=== PATIENT | female | born 1935 | race Caucasian/White ===

== ENCOUNTER 2016-10-14 12:43 | Emergency (ER) | payer OTHER, MEDICARE ==
[~2016-10-14 12:43] MED LIST: ACET-1256 PO; ASPI81TA28 PO; CALC600T9 PO; ENT3 PO; FLUO20CA35 PO; HYDR12.56 PO; KRIL1CAP3 PO; MULT-614 PO; NMN5 PO; NRV/5 PO; PROB1TAB16 PO
[2016-10-14 12:48] VITALS: TEMP 36.8; Ht 162.6 cm
[2016-10-14] MEDS ORDERED: ACETAMINOPHEN 325 MG TAB PO STA (13:05)
--- NOTE | 2016-10-14 13:55 | EMERGENCY ROOM VISIT NOTE ---
ED Visit Note First contact with patient: 12:54 CHIEF COMPLAINT: knee pain HISTORY OF PRESENT ILLNESS: This 81-year-old female patient presents to the emergency department with her son after sustaining an injury to the left knee from a fall around 9:30 this morning. Patient has dementia, her son helps to provide the history. State the patient was walking when she tripped and her left knee gave out on her. She fell onto the left knee, unsure of any twisting injury. The patient denies any other injuries besides their knee. The patient reports mild swelling, no noted bruising. She has been unable to walk on the leg since the injury due to pain. No pain with bending the knee. No numbness or tingling. No previous injuries to this knee. No ankle, foot or hip pain. She takes a baby aspirin every day, no other blood thinners. Hx of bilateral total knee replacement about 20 years ago, no chronic issues with the left knee per patient and her son. REVIEW OF SYSTEMS: A 6 system review of systems was completed with positives and pertinent negatives listed in the HPI. ALLERGIES: See chart MEDICATIONS: See chart PMH: See chart SOCIAL HISTORY: Lives in assisted living. PHYSICAL EXAM: Vital Signs: Reviewed Nurse's notes, vital signs stable. GENERAL : Alert and pleasant, no acute distress, but appears in pain, well-developed, well-nourished. MENTAL STATUS: Alert, oriented to person place and time, and cooperative. MUSCULOSKELETAL: The left knee is mildly swollen. There is no ecchymosis. There is no joint effusion present. The patient is tender anterior and lateral aspect of the knee, as well as tenderness in the ankle range of motion. No obvious deformity of the ankle, no swelling or ecchymosis noted. There is no joint line tenderness. The patella does not subluxate. Range of motion is normal. Strength of the quads and hamstrings is 5/5. Strength with dorsiflexion and plantarflexion of the foot 5/5. Natali's and Anterior Drawer tests are negative. There is no pain or laxity with varus and valgus stressing. The foot and toes are warm and well-perfused. Dorsalis pedis pulse 2+. Sensation to pain and light touch is intact. Capillary refill less than 2 seconds. IMAGING: LEFT ANKLE 3 VIEWS CLINICAL HISTORY: Fall with left ankle injury. FINDINGS: 3 views of the left ankle are obtained. No prior studies are available for comparison at the time of dictation. The skeletal structures are osteopenic. There is contour deformity of the distal fibula suggesting remote fracture. No acute fracture is identified. The ankle mortise is intact. Soft tissue edema is present throughout the left lower extremity. There are large dorsal and plantar calcaneal enthesophytes. No ankle joint effusion is seen. An os trigonum is incidentally noted. IMPRESSION: 1. Diffuse soft tissue edema with no acute ankle fracture identified. 2. Contour deformity of the distal fibula suggests remote trauma. 3. Osteopenia and degenerative change as above. ----- LEFT TIBIA/FIBULA 2 VIEWS ROUTINE CLINICAL HISTORY: left ankle/knee pain, fall, eval fx COMPARISON STUDY: None. FINDINGS: Left total knee arthroplasty. The bones are osteopenic. No fracture or dislocation. Soft tissues are unremarkable. IMPRESSION: No fracture or dislocation within the left lower leg. ----- LEFT KNEE 3 VIEWS CLINICAL HISTORY: Left knee pain status post trauma COMPARISON: None. DISCUSSION: There are postsurgical changes of a total left knee arthroplasty and patellar resurfacing. There are no acute fractures. There are calcifications at the level of the distal quadriceps tendon. IMPRESSION: Postsurgical change. No acute fractures. EMERGENCY DEPARTMENT COURSE: I examined the patient. Differential diagnosis includes knee contusion, fracture, ligamentous injury, ankle sprain, fracture. The patient was given Tylenol for pain. X-rays of the left ankle, tib-fib, knee were reviewed by myself and read by radiology and reveal no acute fracture or other bony abnormality. The patient was placed in a knee immobilizer under my direction and the position was satisfactory. The patient was instructed to use her walker for all ambulation. The patient was discharged home in good condition. Problem List Medical Problems: (1) Acute recurrent tonsillitis Status: Chronic (2) Diabetes Status: Chronic (3) Diarrhea Status: Chronic (4) HTN (hypertension) Status: Chronic (5) Lung cancer Status: Chronic Surgical Problems: (1) History of knee replacement Status: Resolved Current/Historical Medications Scheduled Amlodipine Besylate (Amlodipine Besylate), 5 MG PO DAILY Aspirin (Aspirin Ec), 81 MG PO QAM Budesonide (Budesonide), 3 MG PO QAM Calcium Carbonate-Vitamin D (Calcium + D), 1 TAB PO BID Diphenhydramine Hcl (Benadryl Allergy), 1 CAP PO HS Docusate Sodium (Docqlace), 1 CAP PO BID Donepezil Hydrochloride (Donepezil Hcl), 1 TAB PO HS Escitalopram Oxalate (Lexapro), 5 MG PO QAM Hydrochlorothiazide (Hctz), 12.5 MG PO DAILY Memantine Hcl (Namenda Xr), 1 CAP PO QAM Multiple Vitamins W/ Minerals (Centrum Silver Ultra Wome), 1 TAB PO DAILY Probiotic Product (Probiotic), 1 TAB PO BID Triamcinolone Acetonide (Nasal (Nasacort Allergy 24Hr), 1 SPRAY MARK DAILY Scheduled PRN Acetaminophen (Tylenol), 500 MG PO Q6 PRN for Pain Allergies Coded Allergies: Latex (Verified Allergy, Mild, RASH, 10/14/16) Penicillins (Verified Allergy, Mild, HIVES, 10/14/16) Povidone (Verified Allergy, Mild, TOPICAL - RASH, 10/14/16) Adhesives (Verified Allergy, Unknown, "BANDAID ALLERGY", 10/14/16) Cephalexin (Unverified Allergy, Unknown, ?, 10/14/16) Iodine (Verified Allergy, Unknown, ., 10/14/16) Hydrocodone (Verified Adverse Reaction, Intermediate, vomiting, nausea, ) Vital Signs Date Time Temp Pulse Resp B/P Pulse Ox O2 Delivery O2 Flow Rate FiO2 10/14/16 12:48 36.8 69 16 150/83 97 Room Air Medications Administered Medications (Trade) Dose Ordered Sig/Heri Route Start Time Stop Time Status Last Admin Dose Admin Acetaminophen (Tylenol Tab) 650 mg NOW STAT PO 10/14/16 13:05 10/14/16 13:07 DC 10/14/16 13:05 650 MG Departure Information Impression Primary Impression: Left knee sprain Dispostion Home / Self-Care Condition GOOD Referrals HALIE HARRINGTON (PCP) Patient Instructions ED Immobilizer Knee, ED Sprain Knee, [facility] Additional Instructions Ice and elevate knee for swelling and pain for the next 2-3 days. Wear knee immobilizer when up and about. Use your walker at all times to get around. Ibuprofen 400 mg and Tylenol 650mg every 6 hrs as needed for pain. Follow up with your family doctor or orthopedics in the next 4-5 days. Please return to the ER for any worsening symptoms, including severe pain, increased swelling of the knee or leg, if you are unable to walk on the leg due to pain or weakness, or any other concerns. Problem Qualifiers Primary Impression: Left knee sprain Encounter type: initial encounter Involved ligament of knee: unspecified ligament Qualified Codes: S83.92XA - Sprain of unspecified site of left knee, initial encounter
--- NOTE | 2016-10-14 14:01 | DIAGNOSTIC IMAGING REPORT ---
LEFT KNEE 3 VIEWS CLINICAL HISTORY: Left knee pain status post trauma COMPARISON: None. DISCUSSION: There are postsurgical changes of a total left knee arthroplasty and patellar resurfacing. There are no acute fractures. There are calcifications at the level of the distal quadriceps tendon. IMPRESSION: Postsurgical change. No acute fractures. Electronically signed by: Oli Thompson M.D. 10/14/2016 2:00 PM Dictated Date/Time: 10/14/2016 1:59 PM
--- NOTE | 2016-10-14 14:02 | DIAGNOSTIC IMAGING REPORT ---
LEFT ANKLE 3 VIEWS CLINICAL HISTORY: Fall with left ankle injury. FINDINGS: 3 views of the left ankle are obtained. No prior studies are available for comparison at the time of dictation. The skeletal structures are osteopenic. There is contour deformity of the distal fibula suggesting remote fracture. No acute fracture is identified. The ankle mortise is intact. Soft tissue edema is present throughout the left lower extremity. There are large dorsal and plantar calcaneal enthesophytes. No ankle joint effusion is seen. An os trigonum is incidentally noted. IMPRESSION: 1. Diffuse soft tissue edema with no acute ankle fracture identified. 2. Contour deformity of the distal fibula suggests remote trauma. 3. Osteopenia and degenerative change as above. Electronically signed by: Dave Lehman M.D. 10/14/2016 2:01 PM Dictated Date/Time: 10/14/2016 1:59 PM
[2016-10-14] MEDS ORDERED: DIPH25CA65 PO (14:05)
[2016-10-14] MEDS ORDERED: TRIA1SPR4 NAE (14:05)
[2016-10-14] MEDS ORDERED: DONE1TAB26 PO (14:05)
[2016-10-14] MEDS ORDERED: ESCI1TAB6 PO (14:05)
[2016-10-14] MEDS ORDERED: DOCU100C22 PO (14:05)
[2016-10-14] MEDS ORDERED: MEMA1CAP6 PO (14:05)
--- NOTE | 2016-10-14 14:07 | DIAGNOSTIC IMAGING REPORT ---
LEFT TIBIA/FIBULA 2 VIEWS ROUTINE CLINICAL HISTORY: left ankle/knee pain, fall, eval fx COMPARISON STUDY: None. FINDINGS: Left total knee arthroplasty. The bones are osteopenic. No fracture or dislocation. Soft tissues are unremarkable. IMPRESSION: No fracture or dislocation within the left lower leg. Electronically signed by: Lucas Vega M.D. 10/14/2016 2:05 PM Dictated Date/Time: 10/14/2016 2:04 PM
[2016-10-14 15:00] VITALS: BP 150/83; PULSE 69; O2SAT 97
[2016-11-08] MEDS ORDERED: ASPI81TA28 PO (07:53)
[2016-11-08] MEDS ORDERED: ERGO500011 PO (07:53)
[2016-11-08] MEDS ORDERED: ULT50X PO (07:53)
[2016-11-08] MEDS ORDERED: RXC5 PO (07:53)
[2016-11-08] MEDS ORDERED: LORA-741 PO (10:25)
== END 2016-10-14 15:00 | disposition home or self-care (01) ==
LOC: C.EDB 12:45 → C.EDD 15:00
DX: S83.92XA Sprain of unspecified site of left knee, initial encounter (principal); W01.0XXA Fall on same level from slipping, tripping and stumbling without subsequent striking against object, initial encounter; E11.9 Type 2 diabetes mellitus without complications; I10 Essential (primary) hypertension; Z85.118 Personal history of other malignant neoplasm of bronchus and lung; Z96.659 Presence of unspecified artificial knee joint; Z79.82 Long term (current) use of aspirin; Z79.899 Other long term (current) drug therapy; Z88.0 Allergy status to penicillin; Z88.5 Allergy status to narcotic agent; Z88.8 Allergy status to other drugs, medicaments and biological substances; Z91.040 Latex allergy status; Z91.09 Other allergy status, other than to drugs and biological substances

== ENCOUNTER 2016-11-03 07:38 | Inpatient (IN) | payer OTHER, MEDICARE ==
[~2016-11-03] VITALS: Ht 157.5 cm; Wt 75.0 kg
[~2016-11-03 07:38] MED LIST changes: +DIPH25CA65 PO; +DOCU100C22 PO; +DONE1TAB26 PO; +ESCI1TAB6 PO; -FLUO20CA35 PO; -KRIL1CAP3 PO; +MEMA1CAP6 PO; -NMN5 PO; +TRIA1SPR4 NAE
[2016-11-03] MEDS ORDERED: FENTANYL CITRATE INJ 50 MCG/1 ML 2 ML VIAL IV STA ×3 (07:59→10:56)
[2016-11-03] MEDS ORDERED: SODIUM CHLORIDE 0.9% 1000ML 1,000 ML IV STA (07:59)
[2016-11-03] MEDS ORDERED: CLR10 PO (08:07)
[2016-11-03] MEDS ORDERED: LORA-741 PO (08:08)
[2016-11-03] MEDS ORDERED: SENN1TAB80 PO (08:08)
--- NOTE | 2016-11-03 08:12 | EMERGENCY ROOM VISIT NOTE ---
History Report prepared by Polly: Virginia Joy Under the Supervision of: Dr. Moni Hays M.D. First contact with patient: 07:44 Chief Complaint: HIP PAIN Stated Complaint: FALL History of Present Illness The patient is an 81 year old female who presents to the Emergency Room with complaints of persistent left knee pain starting AFTERNOON BABYSITTER. The patient presents to the ED by EMS from a alf. Her daughter received a call this morning saying that the patient fell while she was trying to get out of bed. She has swelling in her left leg from her ankle to her knee which the alf staff was concerned about. She has had knee replacements in both legs. She is usually able to walk with a walker. She reports pain in her left hip. She denies any abdominal pain. 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 Source of History: patient, family Onset: AFTERNOON BABYSITTER Position: knee (left) Quality: other (pain) Timing: other (persistent) Associated Symptoms: No abdominal pain Note: Pt reports left hip pain. Review of Systems See HPI for pertinent positives & negatives. A total of 10 systems reviewed and were otherwise negative. Past Medical & Surgical Medical Problems: (1) Acute electrocardiogram changes (2) Acute recurrent tonsillitis (3) Dementia (4) Diabetes (5) Diarrhea (6) Fall (7) Femur fracture, left (8) Head injury (9) HTN (hypertension) (10) Lung cancer Surgical Problems: (1) History of knee replacement Family History Diabetes mellitus FH: heart disease Hypertension Social History Smoking Status: Never Smoker Alcohol Use: occasionally Marital Status: Housing Status: lives alone Occupation Status: retired Current/Historical Medications Scheduled Amlodipine Besylate (Amlodipine Besylate), 5 MG PO DAILY Aspirin (Aspirin Ec), 81 MG PO QAM Budesonide (Budesonide), 3 MG PO QAM Calcium Carbonate-Vitamin D (Calcium + D), 1 TAB PO BID Diphenhydramine Hcl (Benadryl Allergy), 1 CAP PO HS Docusate Sodium (Docqlace), 1 CAP PO BID Donepezil Hydrochloride (Donepezil Hcl), 1 TAB PO HS Escitalopram Oxalate (Lexapro), 5 MG PO QAM Hydrochlorothiazide (Hctz), 12.5 MG PO DAILY Loratadine (Claritin), 10 MG PO QAM Memantine Hcl (Namenda Xr), 1 CAP PO QAM Multiple Vitamins W/ Minerals (Centrum Silver Ultra Wome), 1 TAB PO DAILY Probiotic Product (Probiotic), 1 TAB PO BID Sennosides (Senna Lax), 8.6 MG PO DAILY Triamcinolone Acetonide (Nasal (Nasacort Allergy 24Hr), 1 SPRAY MARK DAILY Scheduled PRN Acetaminophen (Tylenol), 500 MG PO Q6 PRN for Pain Lorazepam (Ativan), 0.5 MG PO DAILY PRN for Anxiety Allergies Coded Allergies: Latex (Verified Allergy, Mild, RASH, 10/14/16) Penicillins (Verified Allergy, Mild, HIVES, 10/14/16) Povidone (Verified Allergy, Mild, TOPICAL - RASH, 10/14/16) Adhesives (Verified Allergy, Unknown, "BANDAID ALLERGY", 10/14/16) Cephalexin (Unverified Allergy, Unknown, ?, 10/14/16) Iodine (Verified Allergy, Unknown, ., 10/14/16) Hydrocodone (Verified Adverse Reaction, Intermediate, vomiting, nausea, ) Physical Exam Vital Signs Date Time Temp Pulse Resp B/P (MAP) Pulse Ox O2 Delivery O2 Flow Rate FiO2 11/03/16 14:00 65 22 93/49 96 Room Air 11/03/16 13:32 64 11/03/16 12:00 56 16 102/51 100 Nasal Cannula 2.0 11/03/16 11:00 97 22 96/54 96 Nasal Cannula 2.0 11/03/16 10:15 53 22 113/53 98 Nasal Cannula 2.0 11/03/16 09:45 93 Nasal Cannula 2.0 11/03/16 09:15 55 22 119/80 93 Nasal Cannula 2.0 11/03/16 08:20 48 22 127/70 96 Room Air 11/03/16 07:43 36.7 42 22 167/61 96 Room Air Physical Exam Vital signs reviewed. General: Well-appearing female, in no significant distress. HEENT: No scleral icterus, PERRLA, neck supple. Atraumatic. Cardiovascular: Regular rate and rhythm, no extra sounds. Pulmonary: Clear to auscultation bilaterally, normal work of breathing. Abdomen: Soft, nontender, nondistended, positive bowel sounds. Musculoskeletal: Deformity of the left femur with swelling and ecchymosis, pain with any ROM, instability noted to the mid thigh, no pain with pelvic rocking, neurovascularly intact distally. Neurologic: Patient awake alert and answers most questions appropriately although is pleasantly confused. Unable to recall events of the fall. Per at baseline per her daughter. Skin: Warm, dry, no rash Medical Decision & Procedures ER Provider Diagnostic Interpretation: X-ray results as stated below per interpretation by me and the radiologist. Radiology results as stated below per my review and radiologist interpretation: LEFT KNEE 1 OR 2 VIEWS ROUTINE CLINICAL HISTORY: Left knee pain status post trauma COMPARISON: None. DISCUSSION: There are postsurgical changes of a total left knee arthroplasty. There is a large joint effusion. There are multiple calcifications within the distal quadriceps tendon. There is an oblique fracture of the left femoral shaft at the junction of the middle and distal one third. There is 22 degrees of vertex dorsal angulation at the fracture site. Distal fragment demonstrates 38 mm of maximal anterior displacement. IMPRESSION: Angulated oblique fracture of the left femur at the junction of the middle and distal one third. Large joint effusion involving the knee. Electronically signed by: Oli Thompson M.D. 11/03/2016 9:20 AM Dictated Date/Time: 11/03/2016 9:19 AM LEFT HIP UNILATERAL 2 VIEWS CLINICAL HISTORY: L hip pain after fall COMPARISON: None. DISCUSSION: The bones are osteopenic. There is an angulated oblique fracture of the mid femoral shaft. No fractures of the left hip are visualized. There are no dislocations. There are vascular calcifications present. IMPRESSION: Oblique angulated fracture of the mid femoral shaft Electronically signed by: Oli Thompson M.D. 11/03/2016 9:18 AM Dictated Date/Time: 11/03/2016 9:17 AM SINGLE VIEW CHEST CLINICAL HISTORY: Fall. FINDINGS: An AP, portable, supine chest radiograph is compared to study dated 12/14/2015. The examination is degraded by portable technique, apical lordotic positioning, and patient rotation. The heart is top normal for projection. The mediastinal contour is within normal limits. Elevation of the right hemidiaphragm and chronic interstitial thickening are similar to previous. No airspace consolidation, large pleural effusion, or pneumothorax is seen. The skeletal structures are osteopenic. The bony thorax is grossly intact. IMPRESSION: No acute cardiopulmonary abnormality. Electronically signed by: Dave Lehman M.D. 11/03/2016 9:21 AM Dictated Date/Time: 11/03/2016 9:[address] HEAD WITHOUT CONTRAST (CT) CLINICAL HISTORY: Head trauma. Patient fell from bed. History of dementia. COMPARISON STUDY: 12/15/2015 TECHNIQUE: Axial CT of the brain is performed from the vertex to the skull base. IV contrast was not administered for this examination. CT DOSE: 537.48 mGy.cm FINDINGS: There is a 3 cm right anterior frontal parafalcine extra-axial mass. This is most consistent with a meningioma. This is minimally larger than on prior studies. There is no CT evidence of acute cortical infarction. There is no evidence of acute hemorrhage. There is no evidence of midline shift. No calvarial fractures are visualized. There are extensive white matter hypodensities likely on a small vessel basis. There is no evidence of pathologic ventricular dilatation. There is minor mucosal thickening within the right maxilla sinus. IMPRESSION: 1. Slight interval increase in the size of the 3 cm right frontal extra-axial mass, likely representing a meningioma 2. Moderately extensive white matter hypodensities, similar to the prior study and likely on a small vessel basis 3. No evidence of acute intracranial injury. Electronically signed by: Oli Thompson M.D. 11/03/2016 8:37 AM Dictated Date/Time: 11/03/2016 8:34 AM Laboratory Results 11/03/16 07:50 Red Blood Count 4.28, Mean Corpuscular Volume 88.3, Mean Corpuscular Hemoglobin 29.2, Mean Corpuscular Hemoglobin Concent 33.1, Mean Platelet Volume 10.0, Neutrophils (%) (Auto) 49.5, Lymphocytes (%) (Auto) 41.2, Monocytes (%) (Auto) 6.2, Eosinophils (%) (Auto) 2.7, Basophils (%) (Auto) 0.3, Neutrophils # (Auto) 3.61, Lymphocytes # (Auto) 3.01, Monocytes # (Auto) 0.45, Eosinophils # (Auto) 0.20, Basophils # (Auto) 0.02 11/03/16 07:50 Test 11/03/16 07:50 11/03/16 10:10 White Blood Count 7.30 K/uL (4.8-10.8) Red Blood Count 4.28 M/uL (4.2-5.4) Hemoglobin 12.5 g/dL (12.0-16.0) Hematocrit 37.8 % (37-47) Mean Corpuscular Volume 88.3 fL (80-100) Mean Corpuscular Hemoglobin 29.2 pg (25-34) Mean Corpuscular Hemoglobin Concent 33.1 g/dl (32-36) Platelet Count 193 K/uL (130-400) Mean Platelet Volume 10.0 fL (7.4-10.4) Neutrophils (%) (Auto) 49.5 % Lymphocytes (%) (Auto) 41.2 % Monocytes (%) (Auto) 6.2 % Eosinophils (%) (Auto) 2.7 % Basophils (%) (Auto) 0.3 % Neutrophils # (Auto) 3.61 K/uL (1.4-6.5) Lymphocytes # (Auto) 3.01 K/uL (1.2-3.4) Monocytes # (Auto) 0.45 K/uL (0.11-0.59) Eosinophils # (Auto) 0.20 K/uL (0-0.5) Basophils # (Auto) 0.02 K/uL (0-0.2) RDW Standard Deviation 43.4 fL (36.4-46.3) RDW Coefficient of Variation 13.5 % (11.5-14.5) Immature Granulocyte % (Auto) 0.1 % Immature Granulocyte # (Auto) 0.01 K/uL (0.00-0.02) Prothrombin Time 10.5 SECONDS (9.0-12.0) Prothromb Time International Ratio 1.0 (0.9-1.1) Activated Partial Thromboplast Time 23.8 SECONDS (21.0-31.0) Partial Thromboplastin Ratio 0.9 Anion Gap 11.0 mmol/L (3-11) Est Creatinine Clear Calc Drug Dose 38.3 ml/min Estimated GFR () 61.1 Estimated GFR (Non- 52.7 BUN/Creatinine Ratio 16.6 (10-20) Calcium Level 9.5 mg/dl (8.5-10.1) Magnesium Level 2.0 mg/dl (1.8-2.4) Total Bilirubin 0.3 mg/dl (0.2-1) Direct Bilirubin < 0.1 mg/dl (0-0.2) Aspartate Amino Transf (AST/SGOT) 19 U/L (15-37) Alanine Aminotransferase (ALT/SGPT) 23 U/L (12-78) Alkaline Phosphatase 88 U/L (45-117) Total Creatine Kinase 65 U/L (26-192) Creatine Kinase MB 0.8 ng/ml (0.5-3.6) Creatine Kinase MB Ratio 1.2 (0-3.0) Troponin I < 0.015 ng/ml (0-0.045) Total Protein 6.6 gm/dl (6.4-8.2) Albumin 3.3 gm/dl (3.4-5.0) Urine Color YELLOW Urine Appearance CLOUDY (CLEAR) Urine pH 7.0 (4.5-7.5) Urine Specific Welsh 1.018 (1.000-1.030) Urine Protein NEG (NEG) Urine Glucose (UA) NEG (NEG) Urine Ketones NEG (NEG) Urine Occult Blood NEG (NEG) Urine Nitrite NEG (NEG) Urine Bilirubin NEG (NEG) Urine Urobilinogen NEG (NEG) Urine Leukocyte Esterase MODERATE (NEG) Urine WBC (Auto) 5-10 /hpf (0-5) Urine RBC (Auto) 0-4 /hpf (0-4) Urine Hyaline Casts (Auto) 1-5 /lpf (0-5) Urine Epithelial Cells (Auto) >30 /lpf (0-5) Urine Bacteria (Auto) 4+ (NEG) Urine Yeast (Auto) (NONE PRSENT) Laboratory results per my review. Medications Administered Medications (Trade) Dose Ordered Sig/Heri Route Start Time Stop Time Status Last Admin Dose Admin Fentanyl Citrate (Fentanyl Inj) 50 mcg NOW STAT IV 11/03/16 07:59 11/03/16 08:02 DC 11/03/16 08:12 50 MCG Sodium Chloride 1,000 ml @ 125 mls/hr Q8H STAT IV 11/03/16 07:59 11/03/16 15:58 11/03/16 08:12 125 MLS/HR Fentanyl Citrate (Fentanyl Inj) 50 mcg NOW STAT IV 11/03/16 09:28 11/03/16 09:30 DC 11/03/16 09:43 50 MCG Fentanyl Citrate (Fentanyl Inj) 75 mcg NOW STAT IV 11/03/16 10:56 11/03/16 10:59 DC 11/03/16 11:07 75 MCG Sodium Chloride 1,000 ml @ 100 mls/hr Q10H IV 11/03/16 13:00 12/03/16 12:59 11/03/16 14:37 100 MLS/HR Morphine Sulfate (MoRPHine SULFATE INJ) 4 mg NOW STAT IV 11/03/16 13:18 11/03/16 13:22 DC 11/03/16 13:35 4 MG ECG Indication: other (fall) Rate (beats per minute): 56 Rhythm: sinus bradycardia Findings: T-wave inversion (Inferior, Anterior, Lateral), other (no ST elevation) Comparison ECG Date: 14-Dec-2015 Change: T-wave inversions are new. ED Course 0756: Past medical records reviewed. The patient was evaluated in room A11B. A complete history and physical examination was performed. 0759: NSS 1000 ml @ 125 mls/hr IV, Fentanyl Citrate 50 mcg IV. 0928: Fentanyl Citrate 50 mcg IV. 0937: I reevaluated the patient. She informed me she has been NPO since last night. 1055: I discussed the patient's case with Francisco Javier Yi [facility]. He recommend the patient's leg be placed in an immobilizer. He would like me to speak with the hospitalist. 1056: Fentanyl Citrate 75 mcg IV. 1113: I placed the patient's left leg in a knee immobilizer. 1206: I reviewed the patient's case with Dr. Owens, [facility] [place] - hospitalist. He will evaluate the patient for further management. 1210: I reevaluated the patient. I discussed laboratory and radiographic results with her daughter. She verbalized agreement of the treatment plan. The patient will be evaluated for further management and care. Medical Decision Differential diagnosis: Intracranial injury, cervical spine injury, intrathoracic injury, intra- abdominal injury, musculoskeletal injury. Medication Reconciliation: I attest that I have personally reviewed the patient' s current medication list. Blood Pressure Screening: Patient was found to be mildly hypotensive secondary to narcotics on screening and does not require follow-up. This patient was evaluated and appeared to be in no significant distress. IV access was obtained and laboratory work was drawn. Patient was given IV fentanyl for her discomforts. There is a deformity of the left thigh with some ecchymosis and swelling. A full knee exam was not able to be performed secondary to the patient's pain. X-ray was performed and reveals a distal one third femur fracture. The patient was placed in a left knee immobilizer. I did speak with Francisco Javier Childers PA-C of orthopedic surgery. As the patient is neurovascularly intact and the skin is intact, internal medicine service will evaluate the patient for admission with orthopedic consultation. He has requested nothing by mouth status at this time. IV fluids have been continued. The patient's pain has been relatively controlled with IV fentanyl. Patient and family are aware of the plan and agree. Consults Time Called: 0932 Consulting Physician: Francisco Javier Yi PA-C [facility] Returned Call: [phone] I discussed the patient's case with him. He recommend the patient's leg be placed in an immobilizer. He would like me to speak with the hospitalist. Additional Consults: Time Called: 1122 Consulted Physician: Dr. Owens [facility] [place] - hospitalist Returned Call: [phone] Additional Comments: I reviewed the patient's case with him. He will evaluate the patient for further management. Impression Primary Impression: Left femoral shaft fracture Scribe Attestation The scribe's documentation has been prepared under my direction and personally reviewed by me in its entirety. I confirm that the note above accurately reflects all work, treatment, procedures, and medical decision making performed by me. Departure Information Dispostion Being Evaluated By Hospitalist Referrals HALIE HARRINGTON (PCP) Patient Instructions My [facility]
[2016-11-03 08:18] LABS: BASO % 0.3 %; BASO ABS # 0.02 K/uL (0-0.2); COMPLETE YES; EOS % 2.7 %; HEMATOCRIT 37.8 % (37-47); IG% 0.1 %; LYMPH % 41.2 %; LYMPH ABS # 3.01 K/uL (1.2-3.4); MEAN CELL VOLUME 88.3 fL (80-100); MEAN CORPUSCULAR HEMOGLOBIN 29.2 pg (25-34); MEAN CORPUSCULAR HGB CONC 33.1 g/dl (32-36); MONO % 6.2 %; NEUT % 49.5 %; PLATELET COUNT 193 K/uL (130-400); RED BLOOD COUNT 4.28 M/uL (4.2-5.4)
[2016-11-03 08:27] LABS: PARTIAL THROMBOPLASTIN RATIO 0.9; PROTHROMBIN TIME (PATIENT) 10.5 SECONDS (9.0-12.0)
--- NOTE | 2016-11-03 08:38 | DIAGNOSTIC IMAGING REPORT ---
CT HEAD WITHOUT CONTRAST (CT) CLINICAL HISTORY: Head trauma. Patient fell from bed. History of dementia. COMPARISON STUDY: 12/15/2015 TECHNIQUE: Axial CT of the brain is performed from the vertex to the skull base. IV contrast was not administered for this examination. CT DOSE: 537.48 mGy.cm FINDINGS: There is a 3 cm right anterior frontal parafalcine extra-axial mass. This is most consistent with a meningioma. This is minimally larger than on prior studies. There is no CT evidence of acute cortical infarction. There is no evidence of acute hemorrhage. There is no evidence of midline shift. No calvarial fractures are visualized. There are extensive white matter hypodensities likely on a small vessel basis. There is no evidence of pathologic ventricular dilatation. There is minor mucosal thickening within the right maxilla sinus. IMPRESSION: 1. Slight interval increase in the size of the 3 cm right frontal extra-axial mass, likely representing a meningioma 2. Moderately extensive white matter hypodensities, similar to the prior study and likely on a small vessel basis 3. No evidence of acute intracranial injury. Electronically signed by: Oli Thompson M.D. 11/03/2016 8:37 AM Dictated Date/Time: 11/03/2016 8:34 AM
[2016-11-03 08:47] LABS: ALT/SGPT 23 U/L (12-78); BLOOD UREA NITROGEN 16 mg/dl (7-18); BUN/CREATININE RATIO 16.6 (10-20); CARBON DIOXIDE 29 mmol/L (21-32); CHLORIDE 103 mmol/L (98-107); CREATININE 0.99 mg/dl (0.60-1.20); GLUCOSE 118 mg/dl (70-99); POTASSIUM 3.6 mmol/L (3.5-5.1); SODIUM 143 mmol/L (136-145)
[2016-11-03 08:49] LABS: ALKALINE PHOSPHATASE 88 U/L (45-117); AST/SGOT 19 U/L (15-37)
[2016-11-03 08:56] LABS: CALCIUM 9.5 mg/dl (8.5-10.1)
--- NOTE | 2016-11-03 09:20 | DIAGNOSTIC IMAGING REPORT ---
LEFT HIP UNILATERAL 2 VIEWS CLINICAL HISTORY: L hip pain after fall COMPARISON: None. DISCUSSION: The bones are osteopenic. There is an angulated oblique fracture of the mid femoral shaft. No fractures of the left hip are visualized. There are no dislocations. There are vascular calcifications present. IMPRESSION: Oblique angulated fracture of the mid femoral shaft Electronically signed by: Oli Thompson M.D. 11/03/2016 9:18 AM Dictated Date/Time: 11/03/2016 9:17 AM
--- NOTE | 2016-11-03 09:22 | DIAGNOSTIC IMAGING REPORT ---
LEFT KNEE 1 OR 2 VIEWS ROUTINE CLINICAL HISTORY: Left knee pain status post trauma COMPARISON: None. DISCUSSION: There are postsurgical changes of a total left knee arthroplasty. There is a large joint effusion. There are multiple calcifications within the distal quadriceps tendon. There is an oblique fracture of the left femoral shaft at the junction of the middle and distal one third. There is 22 degrees of vertex dorsal angulation at the fracture site. Distal fragment demonstrates 38 mm of maximal anterior displacement. IMPRESSION: Angulated oblique fracture of the left femur at the junction of the middle and distal one third. Large joint effusion involving the knee. Electronically signed by: Oli Thompson M.D. 11/03/2016 9:20 AM Dictated Date/Time: 11/03/2016 9:19 AM
--- NOTE | 2016-11-03 09:22 | DIAGNOSTIC IMAGING REPORT ---
SINGLE VIEW CHEST CLINICAL HISTORY: Fall. FINDINGS: An AP, portable, supine chest radiograph is compared to study dated 12/14/2015. The examination is degraded by portable technique, apical lordotic positioning, and patient rotation. The heart is top normal for projection. The mediastinal contour is within normal limits. Elevation of the right hemidiaphragm and chronic interstitial thickening are similar to previous. No airspace consolidation, large pleural effusion, or pneumothorax is seen. The skeletal structures are osteopenic. The bony thorax is grossly intact. IMPRESSION: No acute cardiopulmonary abnormality. Electronically signed by: Dave Lehman M.D. 11/03/2016 9:21 AM Dictated Date/Time: 11/03/2016 9:20 AM
[2016-11-03 09:45] VITALS: O2SAT 93; Ht 157.5 cm; Wt 75.0 kg
[2016-11-03 10:36] LABS: URINE APPEARANCE CLOUDY (CLEAR); URINE BILIRUBIN NEG (NEG); URINE COLOR YELLOW; URINE EPITHELIAL CELL AUTO >30 /lpf (0-5); URINE NITRITE NEG (NEG); URINE SPECIFIC GRAVITY 1.018 (1.000-1.030); UROBILINOGEN NEG (NEG); ZZURINE CULT IF INDIC CATH YES
[2016-11-03 10:39] LABS: MANUAL MICROSCOPIC REQUIRED? NO; REVIEW REQ? YES
[2016-11-03 10:45] LABS: CKMB/CK RATIO 1.2 (0-3.0)
[2016-11-03] MEDS ORDERED: MAGNESIUM HYDROXIDE SUSP 30 ML UDC PO PRN (13:00)
[2016-11-03] MEDS ORDERED: LORAZEPAM 0.5 MG TAB PO PRN (13:00)
[2016-11-03] MEDS ORDERED: ONDANSETRON INJ 2 MG/ML 2 ML VIAL IV PRN (13:00)
[2016-11-03] MEDS ORDERED: ALUMINUM/MAGNESIUM/SIMETH (MAALOX MAX) 30 ML UDC PO PRN (13:00)
[2016-11-03] MEDS ORDERED: MoRPHine SULFATE 4 MG/ML 1 ML CARP\\VIAL IV STA (13:18)
--- NOTE | 2016-11-03 14:05 | Cardiology Consultation ---
Cardiology Consultation Date of Consultation: Nov 03, 2016. Requesting Physician: Dr. Dejesus Reason for Consultation: Fall with injury Pt evaluation today including: conversation w/ patient, conversation w/ family , physical exam, lab review, review of studies, review of inpatient medication list History of Present Illness This is a 81-year-old woman with a history of progressive Alzheimer's dementia as well as a number of falls in the past. She was seen in the emergency room on 01/19/2015 with a fall while weeding her yard and she had minor injury to her right elbow, then she presented on 05/07/2015 with a number of presyncopal events including a fall in her shower. She apparently was weak, slid to the ground and was incontinent. She then presented to the emergency room 12/01/2015 with a fall 2 days before that where she fell and hit the back of her head but denies losing consciousness. Then on 12/14/2015 she came to the emergency room with a fall where she suddenly fell backwards without warning, this was not witnessed and is not clear if she lost consciousness. She then fell again 2016 with injury to her left knee, apparently this was due to tripping. She now presents having fallen while trying to get out of bed. She will evidently need surgery for a knee injury. As part of her evaluation an electrocardiogram showed sinus bradycardia with inferior and anterior T-wave inversions, these are new compared to her prior electrocardiograms from September 2016 (and a number from earlier than that as well). An echocardiogram done 12/14/2015 showed normal left ventricular size and function. She did have a dobutamine stress echo done on 11/10/2011, this was normal at greater than 100% of her predicted maximal heart rate. Past Medical/Surgical History (1) Head injury (2) Dementia (3) Fall (4) Lung cancer (5) Diabetes (6) HTN (hypertension) (7) History of knee replacement Family History Diabetes mellitus FH: heart disease Hypertension Social History Smoking Status: Never Smoker History of Alcohol Use: No Review of Systems Constitutional: No fever, No weight loss, No weakness Respiratory: No cough, No wheezing, No shortness of breath, No dyspnea on exertion Cardiac: No chest pain, No orthopnea, No PND, No edema, No palpitations Abdomen: No pain, No nausea, No vomiting, No diarrhea, No GI bleeding Female : No problem reported Neurologic: No paralysis, No weakness, No numbness/tingling, No balance problems Heme: No abnormal bleeding/bruising, No clotting problems Endo: No fatigue Skin: No problem reported Left knee pain All Other Systems: Reviewed and Negative Allergies Coded Allergies: Latex (Verified Allergy, Mild, RASH, 10/14/16) Penicillins (Verified Allergy, Mild, HIVES, 10/14/16) Povidone (Verified Allergy, Mild, TOPICAL - RASH, 10/14/16) Adhesives (Verified Allergy, Unknown, "BANDAID ALLERGY", 10/14/16) Cephalexin (Unverified Allergy, Unknown, ?, 10/14/16) Iodine (Verified Allergy, Unknown, ., 10/14/16) Hydrocodone (Verified Adverse Reaction, Intermediate, vomiting, nausea, ) Medications Current Inpatient Medications Medications (Trade) Dose Ordered Sig/Heri Route Start Time Stop Time Status Last Admin Dose Admin Sodium Chloride 1,000 ml @ 125 mls/hr Q8H STAT IV 11/03/16 07:59 11/03/16 15:58 11/03/16 08:12 125 MLS/HR Acetaminophen (Tylenol Tab) 650 mg Q4H PRN PO 11/03/16 13:00 12/03/16 12:59 Al Hydrox/Mg Hydrox/Simethicone (Maalox Max Susp) 15 ml Q4H PRN PO 11/03/16 13:00 12/03/16 12:59 Magnesium Hydroxide (Milk Of Magnesia Susp) 30 ml Q6H PRN PO 11/03/16 13:00 12/03/16 12:59 Polyethylene (Miralax Powder Packet) 17 gm DAILY PRN PO 11/03/16 13:00 12/03/16 12:59 Ondansetron HCl (Zofran Inj) 4 mg Q6H PRN IV 11/03/16 13:00 12/03/16 12:59 Amlodipine Besylate (Norvasc Tab) 5 mg DAILY PO 11/04/16 09:00 12/04/16 08:59 UNV Budesonide (Entocort EC Cap) 3 mg QAM PO 11/04/16 09:00 12/04/16 08:59 UNV Diphenhydramine HCl (Benadryl Cap) 25 mg HS PO 11/03/16 21:00 12/03/16 20:59 UNV Docusate Sodium (coLACE CAP) 100 mg BID PO 11/03/16 21:00 12/03/16 20:59 UNV Escitalopram Oxalate (Lexapro Tab) 5 mg QAM PO 11/04/16 09:00 12/04/16 08:59 UNV Loratadine (Claritin Tab) 10 mg QAM PO 11/04/16 09:00 12/04/16 08:59 UNV Lorazepam (Ativan Tab) 0.5 mg DAILY PRN PO 11/03/16 13:00 12/03/16 12:59 Senna (Senokot Tab) 8.6 mg DAILY PO 11/04/16 09:00 12/04/16 08:59 UNV Non-Formulary Medication (Calcium Carbonate-Vitamin D (Calcium + D)) 1 tab BID PO 11/03/16 21:00 12/03/16 20:59 UNV Non-Formulary Medication (Donepezil Hydrochloride (Donepezil Hcl)) 1 tab HS PO 11/03/16 21:00 12/03/16 20:59 UNV Non-Formulary Medication (Memantine Hcl (Namenda Xr)) 1 cap QAM PO 11/04/16 09:00 12/04/16 08:59 UNV Non-Formulary Medication (Probiotic Product (Probiotic)) 1 tab BID PO 11/03/16 21:00 12/03/16 20:59 UNV Morphine Sulfate (MoRPHine SULFATE INJ) 4 mg Q2H PRN IV 11/03/16 13:00 11/17/16 12:59 Sodium Chloride 1,000 ml @ 100 mls/hr Q10H IV 11/03/16 13:00 12/03/16 12:59 Aztreonam 1000 mg/ Dextrose 110 ml @ 100 mls/hr Q8H IV 11/03/16 13:30 11/08/16 13:29 UNV Physical Exam Vital Signs Past 12 Hours Date Time Temp Pulse Resp B/P (MAP) Pulse Ox O2 Delivery O2 Flow Rate FiO2 11/03/16 13:32 64 11/03/16 12:00 56 16 102/51 100 Nasal Cannula 2.0 11/03/16 11:00 97 22 96/54 96 Nasal Cannula 2.0 11/03/16 10:15 53 22 113/53 98 Nasal Cannula 2.0 11/03/16 09:45 93 Nasal Cannula 2.0 11/03/16 09:15 55 22 119/80 93 Nasal Cannula 2.0 11/03/16 08:20 48 22 127/70 96 Room Air 11/03/16 07:43 36.7 42 22 167/61 96 Room Air Constitutional: General Apperance: heathly-appearing Level of Distress: NAD Psychiatric: Mental Status: active & alert Orientation: to place, to person, not oriented to time Memory: recent memory abnormal Head: normocephalic Eyes: EOM: EOMI ENMT: normal ENT inspection, hearing grossly normal Neck: supple, no masses Lungs: Respiratory effort: no dyspnea, good air movement Auscultation: breath sounds normal, no wheezing Cardiovascular: Heart Auscultation: RRR, no murmurs, no rubs, no gallops Peripheral Pulses: Bruits: none appreciated Abdomen: Bowel Sounds: normal Inspection & Palpation: soft, no tenderness, guarding & rebound, no masses Musculoskeletal: normal strength (5/5 throughout) Extremities: no edema Neurologic: Cranial Nerves: grossly intact Sensation: grossly intact Left knee swollen and painful Data Laboratory Results: Last 24 Hours Test 11/03/16 07:50 11/03/16 10:10 White Blood Count 7.30 K/uL Red Blood Count 4.28 M/uL Hemoglobin 12.5 g/dL Hematocrit 37.8 % Mean Corpuscular Volume 88.3 fL Mean Corpuscular Hemoglobin 29.2 pg Mean Corpuscular Hemoglobin Concent 33.1 g/dl Platelet Count 193 K/uL Mean Platelet Volume 10.0 fL Neutrophils (%) (Auto) 49.5 % Lymphocytes (%) (Auto) 41.2 % Monocytes (%) (Auto) 6.2 % Eosinophils (%) (Auto) 2.7 % Basophils (%) (Auto) 0.3 % Neutrophils # (Auto) 3.61 K/uL Lymphocytes # (Auto) 3.01 K/uL Monocytes # (Auto) 0.45 K/uL Eosinophils # (Auto) 0.20 K/uL Basophils # (Auto) 0.02 K/uL RDW Standard Deviation 43.4 fL RDW Coefficient of Variation 13.5 % Immature Granulocyte % (Auto) 0.1 % Immature Granulocyte # (Auto) 0.01 K/uL Prothrombin Time 10.5 SECONDS Prothromb Time International Ratio 1.0 Activated Partial Thromboplast Time 23.8 SECONDS Partial Thromboplastin Ratio 0.9 Sodium Level 143 mmol/L Potassium Level 3.6 mmol/L Chloride Level 103 mmol/L Carbon Dioxide Level 29 mmol/L Anion Gap 11.0 mmol/L Blood Urea Nitrogen 16 mg/dl Creatinine 0.99 mg/dl Est Creatinine Clear Calc Drug Dose 38.3 ml/min Estimated GFR () 61.1 Estimated GFR (Non- 52.7 BUN/Creatinine Ratio 16.6 Random Glucose 118 mg/dl Calcium Level 9.5 mg/dl Magnesium Level 2.0 mg/dl Total Bilirubin 0.3 mg/dl Direct Bilirubin < 0.1 mg/dl Aspartate Amino Transf (AST/SGOT) 19 U/L Alanine Aminotransferase (ALT/SGPT) 23 U/L Alkaline Phosphatase 88 U/L Total Creatine Kinase 65 U/L Creatine Kinase MB 0.8 ng/ml Creatine Kinase MB Ratio 1.2 Troponin I < 0.015 ng/ml Total Protein 6.6 gm/dl Albumin 3.3 gm/dl Urine Color YELLOW Urine Appearance CLOUDY Urine pH 7.0 Urine Specific [place] 1.018 Urine Protein NEG Urine Glucose (UA) NEG Urine Ketones NEG Urine Occult Blood NEG Urine Nitrite NEG Urine Bilirubin NEG Urine Urobilinogen NEG Urine Leukocyte Esterase MODERATE Urine WBC (Auto) 5-10 /hpf Urine RBC (Auto) 0-4 /hpf Urine Hyaline Casts (Auto) 1-5 /lpf Urine Epithelial Cells (Auto) >30 /lpf Urine Bacteria (Auto) 4+ Urine Yeast (Auto) EKG: Sinus bradycardia 56 bpm, inferior and anterior T-wave inversion. New compared to prior electrocardiograms. Telemetry reviewed: Sinus bradycardia, no significant arrhythmia. Assessment & Plan #1. Abnormal electrocardiogram: She has new T-wave inversions in both inferior and anterior leads, compared to electrocardiogram just 1 month ago and prior ones. This is worrisome, although there are nonspecific but suggestive of ischemia. She does not have any history of chest discomfort and her enzymes now are negative. I am going to get an echocardiogram to see if she has new wall motion abnormalities. We should trend enzymes to see if there are any changes. It may be risky to go to surgery with these findings unless we know the cause, I would recommend waiting if possible. #2. Frequent falls: The cause of the falls is unknown, she cannot provide adequate history. It is certainly possible these could represent an arrhythmia, possibly bradycardia based on her electrocardiogram. Although it may not be important in preparation for surgery I think we need to follow-up on this, possibly with halfway monitoring but at least monitoring while she is in the hospital to see whether she has transient arrhythmias. #3. Bradycardia: She does have sinus bradycardia, it is not severe but she could have sick sinus syndrome and more significant arrhythmias that we have not seen. She is not on any medications to cause bradycardia. Thank you for allowing me to participate in her care.
[2016-11-03] MEDS: SODIUM CHLORIDE 0.9% 1000ML 1,000 ML IV SCH ×2 (14:37→22:46)
[2016-11-03] MEDS ORDERED: AZTREONAM IV 1,000 MG in DEXTROSE 5% 100ML 100 ML IV STA (14:58)
[2016-11-03] MEDS ORDERED: PERFLUTREN LIPID MICROSPHERE (DEFINITY) IV ONE (15:25)
--- NOTE | 2016-11-03 15:57 | History and Physical ---
History & Physical Date & Time of Service: Nov 03, 2016 at 14:24 Chief Complaint: FALL Primary Care Physician: Jean Paul Harrington History of Present Illness Source: patient, family (daughter at bedside), clinic records, hospital records , half-way This is an 81 y/o female with a history of Alzheimer's disease, lung cancer s/p lung resection, HTN and frontal meningioma who presented to the ED on 11/03 from [facility] with left hip and knee pain following a fall. The patient's daughter states that she received a call from [facility] stating that the patient had fallen getting out of bed. The patient herself does not recall the fall or how it happened. She is unsure if she was dizzy prior to the fall, if she hit her head, or if she lost consciousness. The patient does have dementia and is not a very reliable historian. The patient does complain of pain throughout her left hip to her left knee that is very severe. The patient has received pain medications from the ED and currently rates her pain as an 8/10 sharp pain. She states that she feels numb in her left leg and she had not been able to move her leg much prior to having the immobilizer placed in the ED secondary to pain. The patient was found to have new T-wave inversions on EKG. The patient denies any chest pain, shortness of breath, diaphoresis, nausea or vomiting. She states that she does feel somewhat dizzy right now and is feeling "off". The patient denies fevers, chills, sweats, chest pain, palpitations, claudication, cough, wheezing, shortness of breath, nausea, vomiting, abdominal pain, dysuria, hematuria, urinary retention, paralysis. Past Medical/Surgical History Medical Problems: (1) Acute recurrent tonsillitis Status: Chronic (2) Dementia Status: Chronic (3) Diabetes Status: Chronic (4) Diarrhea Status: Chronic (5) Fall Status: Chronic (6) Head injury Status: Resolved (7) HTN (hypertension) Status: Chronic (8) Lung cancer Status: Chronic Surgical Problems: (1) History of knee replacement Status: Resolved Family History Diabetes mellitus FH: heart disease Hypertension Social History Smoking Status: Never Smoker Smokeless Tobacco Use: No Alcohol Use: none Drug Use: none Marital Status: Housing status: half-way Occupational Status: retired Immunizations History of Influenza Vaccine: Yes History of Tetanus Vaccine?: Maybe History of Pneumococcal: 2002 History of Hepatitis B Vaccine: No Multi-Drug Resistant Organisms History of MDRO: No Allergies Coded Allergies: Latex (Verified Allergy, Mild, RASH, 10/14/16) Penicillins (Verified Allergy, Mild, HIVES, 10/14/16) Povidone (Verified Allergy, Mild, TOPICAL - RASH, 10/14/16) Adhesives (Verified Allergy, Unknown, "BANDAID ALLERGY", 10/14/16) Cephalexin (Unverified Allergy, Unknown, ?, 10/14/16) Iodine (Verified Allergy, Unknown, ., 10/14/16) Hydrocodone (Verified Adverse Reaction, Intermediate, vomiting, nausea, ) Home Medications Scheduled Amlodipine Besylate (Amlodipine Besylate), 5 MG PO DAILY Aspirin (Aspirin Ec), 81 MG PO QAM Budesonide (Budesonide), 3 MG PO QAM Calcium Carbonate-Vitamin D (Calcium + D), 1 TAB PO BID Diphenhydramine Hcl (Benadryl Allergy), 1 CAP PO HS Docusate Sodium (Docqlace), 1 CAP PO BID Donepezil Hydrochloride (Donepezil Hcl), 1 TAB PO HS Escitalopram Oxalate (Lexapro), 5 MG PO QAM Hydrochlorothiazide (Hctz), 12.5 MG PO DAILY Loratadine (Claritin), 10 MG PO QAM Memantine Hcl (Namenda Xr), 1 CAP PO QAM Multiple Vitamins W/ Minerals (Centrum Silver Ultra Wome), 1 TAB PO DAILY Probiotic Product (Probiotic), 1 TAB PO BID Sennosides (Senna Lax), 8.6 MG PO DAILY Triamcinolone Acetonide (Nasal (Nasacort Allergy 24Hr), 1 SPRAY MARK DAILY Scheduled PRN Acetaminophen (Tylenol), 500 MG PO Q6 PRN for Pain Lorazepam (Ativan), 0.5 MG PO DAILY PRN for Anxiety Review of Systems Constitutional: No fever, No chills, No sweats Eyes: No worsening of vision, No eye pain, No diplopia ENT: No hearing loss, No sore throat, No trouble swallowing Respiratory: No cough, No wheezing, No shortness of breath Cardiovascular: No chest pain, No claudication, No palpitations Abdomen: No pain, No nausea, No vomiting Musculoskeletal: + joint pain (left hip and left knee), + muscle pain, + swelling (left knee) Genitourinary - Female: No dysuria, No urinary retention, No hematuria Neurologic: + numbness/tingling, No paralysis, No weakness Integumentary: No rash, No itch, No color change Physical Exam Vital Signs Date Time Temp Pulse Resp B/P (MAP) Pulse Ox O2 Delivery O2 Flow Rate FiO2 11/03/16 13:32 64 11/03/16 12:00 56 16 102/51 100 Nasal Cannula 2.0 11/03/16 11:00 97 22 96/54 96 Nasal Cannula 2.0 11/03/16 10:15 53 22 113/53 98 Nasal Cannula 2.0 11/03/16 09:45 93 Nasal Cannula 2.0 11/03/16 09:15 55 22 119/80 93 Nasal Cannula 2.0 11/03/16 08:20 48 22 127/70 96 Room Air 11/03/16 07:43 36.7 42 22 167/61 96 Room Air General appearance: Well-developed, well-nourished, no apparent distress Head: Normocephalic, atraumatic Eyes: Normal inspection, PERRL, EOMI ENT: Normal ENT inspection, hearing grossly normal, pharynx normal Neck: Supple, no JVD, trachea midline Respiratory/Chest: Lungs clear to auscultation, normal breath sounds, no respiratory distress Cardiovascular: +Bradycardia. Regular rhythm, no gallop, no murmur Abdomen/GI: Normal bowel sounds, non-tender, soft Extremities/Musculoskeletal: + Left lower extremity in immobilizer. Swelling around left knee. Entire left lower extremity tender to palpation with marked tenderness at distal femur. Neurological/Psych: +Disoriented to time. Alert, normal mood/affect Skin: +Bruise dorsal aspect of left foot. Normal color, warm/dry, no rash Diagnostics Laboratory Results Results Past 24 Hours Test 11/03/16 07:50 11/03/16 10:10 Range/Units White Blood Count 7.30 4.8-10.8 K/uL Red Blood Count 4.28 4.2-5.4 M/uL Hemoglobin 12.5 12.0-16.0 g/dL Hematocrit 37.8 37-47 % Mean Corpuscular Volume 88.3 80-100 fL Mean Corpuscular Hemoglobin 29.2 25-34 pg Mean Corpuscular Hemoglobin Concent 33.1 32-36 g/dl Platelet Count 193 130-400 K/uL Mean Platelet Volume 10.0 7.4-10.4 fL Neutrophils (%) (Auto) 49.5 % Lymphocytes (%) (Auto) 41.2 % Monocytes (%) (Auto) 6.2 % Eosinophils (%) (Auto) 2.7 % Basophils (%) (Auto) 0.3 % Neutrophils # (Auto) 3.61 1.4-6.5 K/uL Lymphocytes # (Auto) 3.01 1.2-3.4 K/uL Monocytes # (Auto) 0.45 0.11-0.59 K/uL Eosinophils # (Auto) 0.20 0-0.5 K/uL Basophils # (Auto) 0.02 0-0.2 K/uL RDW Standard Deviation 43.4 36.4-46.3 fL RDW Coefficient of Variation 13.5 11.5-14.5 % Immature Granulocyte % (Auto) 0.1 % Immature Granulocyte # (Auto) 0.01 0.00-0.02 K/uL Prothrombin Time 10.5 9.0-12.0 SECONDS Prothromb Time International Ratio 1.0 0.9-1.1 Activated Partial Thromboplast Time 23.8 21.0-31.0 SECONDS Partial Thromboplastin Ratio 0.9 Sodium Level 143 136-145 mmol/L Potassium Level 3.6 3.5-5.1 mmol/L Chloride Level 103 98-107 mmol/L Carbon Dioxide Level 29 21-32 mmol/L Anion Gap 11.0 3-11 mmol/L Blood Urea Nitrogen 16 7-18 mg/dl Creatinine 0.99 0.60-1.20 mg/dl Est Creatinine Clear Calc Drug Dose 38.3 ml/min Estimated GFR () 61.1 Estimated GFR (Non- 52.7 BUN/Creatinine Ratio 16.6 10-20 Random Glucose 118 70-99 mg/dl Calcium Level 9.5 8.5-10.1 mg/dl Magnesium Level 2.0 1.8-2.4 mg/dl Total Bilirubin 0.3 0.2-1 mg/dl Direct Bilirubin < 0.1 0-0.2 mg/dl Aspartate Amino Transf (AST/SGOT) 19 15-37 U/L Alanine Aminotransferase (ALT/SGPT) 23 12-78 U/L Alkaline Phosphatase 88 45-117 U/L Total Creatine Kinase 65 26-192 U/L Creatine Kinase MB 0.8 0.5-3.6 ng/ml Creatine Kinase MB Ratio 1.2 0-3.0 Troponin I < 0.015 0-0.045 ng/ml Total Protein 6.6 6.4-8.2 gm/dl Albumin 3.3 3.4-5.0 gm/dl Urine Color YELLOW Urine Appearance CLOUDY CLEAR Urine pH 7.0 4.5-7.5 Urine Specific Brewster 1.018 1.000-1.030 Urine Protein NEG NEG Urine Glucose (UA) NEG NEG Urine Ketones NEG NEG Urine Occult Blood NEG NEG Urine Nitrite NEG NEG Urine Bilirubin NEG NEG Urine Urobilinogen NEG NEG Urine Leukocyte Esterase MODERATE NEG Urine WBC (Auto) 5-10 0-5 /hpf Urine RBC (Auto) 0-4 0-4 /hpf Urine Hyaline Casts (Auto) 1-5 0-5 /lpf Urine Epithelial Cells (Auto) >30 0-5 /lpf Urine Bacteria (Auto) 4+ NEG Urine Yeast (Auto) NONE PRSENT Microbiology Results 11/03/16 Urine Culture, Received Pending Diagnostic Radiology Reviewed the following studies and agree with interpretation as follows: Patient Name: KORIN MARTINEZ Unit Number: [id number] Dictated: 11/03/16833 Transcribed: 11/03/16833 ARG Printed Date/Time: [~ rep prt dt]/[~ rep prt tm] [~ rep ct labl] - [~ rep ct ivnm] [facility] [place] [place] [address] Dictated: 11/03/16833 Transcribed: 11/03/16833 ARG Printed Date/Time: [~ rep prt dt]/[~ rep prt tm] [~ rep ct labl] - [~ rep ct ivnm] Patient: KORIN MARTINEZ Address1: [address] [place] [address] [address] Mills Rec: [id number] Address2: [facility] Acct ID: [id number] [facility] Zip: [place] [address] Date: 1935 Sex: F Room/Bed: Ref Phy: Alma Bolton D.O. SC: CARLOS Att Phy: Report #: [id number] Leslie Phy: JEAN PAUL HARRINGTON Test: HWO Admit Phy: Beaming Inspector: BOLA Interpreting Phy: Oli Thompson M.D. Diagnosis: FALL Ordering Phy: Moni Hays M.D. Service Date: 11/03/16 Admit Date: 11/03/16 MNE: PWRSCRIBE CONF: DICTATED BY: Oli Thompson M.D.]] CC: Moni Hays M.D. Grine, Kristen M., D.O. [facility] Endcc: [~ rep ct add3]] CT HEAD WITHOUT CONTRAST (CT) CLINICAL HISTORY: Head trauma. Patient fell from bed. History of dementia. COMPARISON STUDY: 12/15/2015 TECHNIQUE: Axial CT of the brain is performed from the vertex to the skull base. IV contrast was not administered for this examination. CT DOSE: 537.48 mGy.cm FINDINGS: There is a 3 cm right anterior frontal parafalcine extra-axial mass. This is most consistent with a meningioma. This is minimally larger than on prior studies. There is no CT evidence of acute cortical infarction. There is no evidence of acute hemorrhage. There is no evidence of midline shift. No calvarial fractures are visualized. There are extensive white matter hypodensities likely on a small vessel basis. There is no evidence of pathologic ventricular dilatation. There is minor mucosal thickening within the right maxilla sinus. IMPRESSION: 1. Slight interval increase in the size of the 3 cm right frontal extra-axial mass, likely representing a meningioma 2. Moderately extensive white matter hypodensities, similar to the prior study and likely on a small vessel basis 3. No evidence of acute intracranial injury. Electronically signed by: Oli Thompson M.D. 11/03/2016 8:37 AM Dictated Date/Time: 11/03/2016 8:34 AM The status of this report is Signed. Draft = Not yet reviewed or approved by Radiologist. Signed = Reviewed and approved by Radiologist. <AttendingPhy></AttendingPhy> <FamilyPhy>Alma Bolton D.O.</FamilyPhy> < PrimaryPhy>[facility]</PrimaryPhy> <UnitNumber>[id number]</UnitNumber> < VisitNumber>[id number]</VisitNumber> <PatientName>KORIN MARTINEZ</ PatientName> <DateOfBirth>1935</DateOfBirth> <Location>C.CARLA</Location> < ServiceDate>11/03/16</ServiceDate> <MNE>ESINDI</MNE> <OrderingPhy>Moni Hays M.D.</OrderingPhy> <OrderingPhyMNE>f rep ord dr arango</OrderingPhyMNE> < DictatingPhyMNE>f rep dict dr arango</DictatingPhyMNE> <CCListMNE>f rep ct mne</ CCListMNE> <AdmittingPhyMNE>f pt admit dr arango</AdmittingPhyMNE> <AttendingPhyMNE >f pt attend dr arango</AttendingPhyMNE> <ConsultingPhyMNE>f pt consult dr arango</ConsultingPhyMNE> <FamilyPhyMNE>f pt fam dr arango</FamilyPhyMNE> <OtherPhyMNE>f pt other dr arango</OtherPhyMNE> < PrimaryPhyMNE>f pt prim care dr arango</PrimaryPhyMNE> <ReferringPhyMNE>f pt referring dr arango</ReferringPhyMNE> Patient Name: KORIN MARTINEZ Unit Number: [id number] Dictated: 11/03/16919 Transcribed: 11/03/16919 EV Printed Date/Time: [~ rep prt dt]/[~ rep prt tm] [~ rep ct labl] - [~ rep ct ivnm] [facility] [place] [place] [address] Dictated: 11/03/16919 Transcribed: 11/03/16919 EV Printed Date/Time: [~ rep prt dt]/[~ rep prt tm] [~ rep ct labl] - [~ rep ct ivnm] Patient: KORIN MARTINEZ Address1: [address] [place] [address] [address] Mills Rec: [id number] Address2: [facility] Acct ID: [id number] [facility] Zip: [place] [address] Date: 1935 Sex: F Room/Bed: Ref Phy: Alma Bolton D.O. SC: CARLOS Att Phy: Report #: [id number] Leslie Phy: [facility] Test: [id number] Admit Phy: Beaming Inspector: KUMAR Interpreting Phy: Dave Lehman M.D. Diagnosis: FALL Ordering Phy: Moni Hays M.D. Service Date: 11/03/16 Admit Date: 11/03/16 MNE: PWRSCRIBE CONF: DICTATED BY: Dave Lehman M.D.]] CC: Moni Hays M.D. Grine, Kristen M., D.O. [facility] Endcc: [~ rep ct add3]] SINGLE VIEW CHEST CLINICAL HISTORY: Fall. FINDINGS: An AP, portable, supine chest radiograph is compared to study dated 12/14/2015. The examination is degraded by portable technique, apical lordotic positioning, and patient rotation. The heart is top normal for projection. The mediastinal contour is within normal limits. Elevation of the right hemidiaphragm and chronic interstitial thickening are similar to previous. No airspace consolidation, large pleural effusion, or pneumothorax is seen. The skeletal structures are osteopenic. The bony thorax is grossly intact. IMPRESSION: No acute cardiopulmonary abnormality. Electronically signed by: Dave Lehman M.D. 11/03/2016 9:21 AM Dictated Date/Time: 11/03/2016 9:20 AM The status of this report is Signed. Draft = Not yet reviewed or approved by Radiologist. Signed = Reviewed and approved by Radiologist. <AttendingPhy></AttendingPhy> <FamilyPhy>Alma Bolton D.O.</FamilyPhy> < PrimaryPhy>[facility]</PrimaryPhy> <UnitNumber>[id number]</UnitNumber> < VisitNumber>[id number]</VisitNumber> <PatientName>KORIN MARTINEZ</ PatientName> <DateOfBirth>1935</DateOfBirth> <Location>CARL[facility]</Location> < ServiceDate>11/03/16</ServiceDate> <MNE>ESINDI</MNE> <OrderingPhy>Moni Hays M.D.</OrderingPhy> <OrderingPhyMNE>f rep ord dr arango</OrderingPhyMNE> < DictatingPhyMNE>f rep dict dr arango</DictatingPhyMNE> <CCListMNE>f rep ct mne</ CCListMNE> <AdmittingPhyMNE>f pt admit dr arango</AdmittingPhyMNE> <AttendingPhyMNE >f pt attend dr arango</AttendingPhyMNE> <ConsultingPhyMNE>f pt consult dr arango</ConsultingPhyMNE> <FamilyPhyMNE>f pt fam dr arango</FamilyPhyMNE> <OtherPhyMNE>f pt other dr arango</OtherPhyMNE> < PrimaryPhyMNE>f pt prim care dr arango</PrimaryPhyMNE> <ReferringPhyMNE>f pt referring dr arango</ReferringPhyMNE> \\ Patient Name: KORIN MARTINEZ [place] Unit Number: [id number] Dictated: 11/03/16916 Transcribed: 11/03/16916 ARG Printed Date/Time: [~ rep prt dt]/[~ rep prt tm] [~ rep ct labl] - [~ rep ct ivnm] [facility] [place] [address] Dictated: 11/03/16916 Transcribed: 11/03/16916 ARG Printed Date/Time: [~ rep prt dt]/[~ rep prt tm] [~ rep ct labl] - [~ rep ct ivnm] Patient: KORIN MARTINEZ [place] Address1: [address] Mills Rec: [id number] Address2: [facility] Acct ID: [id number] [facility] Zip: [place] [address] Date: 1935 Sex: F Room/Bed: Ref Phy: Alma Bolton D.O. SC: CARLOS Att Phy: Report #: [id number] Leslie Phy: [facility] Test: HIP Admit Phy: Beaming Inspector: KUMAR Interpreting Phy: Oli Thompson M.D. Diagnosis: FALL Ordering Phy: Moni Hays M.D. Service Date: 11/03/16 Admit Date: 11/03/16 MNE: PWRSCRIBE CONF: DICTATED BY: Oli Thompson M.D.]] CC: Moni Hays M.D. Grine, Kristen M., D.O. [facility] Endcc: [~ rep ct add3]] LEFT HIP UNILATERAL 2 VIEWS CLINICAL HISTORY: L hip pain after fall COMPARISON: None. DISCUSSION: The bones are osteopenic. There is an angulated oblique fracture of the mid femoral shaft. No fractures of the left hip are visualized. There are no dislocations. There are vascular calcifications present. IMPRESSION: Oblique angulated fracture of the mid femoral shaft Electronically signed by: Oli Thompson M.D. 11/03/2016 9:18 AM Dictated Date/Time: 11/03/2016 9:17 AM The status of this report is Signed. Draft = Not yet reviewed or approved by Radiologist. Signed = Reviewed and approved by Radiologist. <AttendingPhy></AttendingPhy> <FamilyPhy>Alma Bolton D.O.</FamilyPhy> < PrimaryPhy>[facility]</PrimaryPhy> <UnitNumber>[id number]</UnitNumber> < VisitNumber>[id number]</VisitNumber> <PatientName>KORIN MARTINEZ</ PatientName> <DateOfBirth>1935</DateOfBirth> <Location>C.CARLA</Location> < ServiceDate>11/03/16</ServiceDate> <MNE>ESINDI</MNE> <OrderingPhy>Moni Hays M.D.</OrderingPhy> <OrderingPhyMNE>f rep ord dr arango</OrderingPhyMNE> < DictatingPhyMNE>f rep dict [place]</DictatingPhyMNE> <CCListMNE>f rep ct mne</ CCListMNE> <AdmittingPhyMNE>f pt admit dr arango</AdmittingPhyMNE> <AttendingPhyMNE >f pt attend dr arango</AttendingPhyMNE> <ConsultingPhyMNE>f pt consult dr arango</ConsultingPhyMNE> <FamilyPhyMNE>f pt fam dr arango</FamilyPhyMNE> <OtherPhyMNE>f pt other dr arango</OtherPhyMNE> < PrimaryPhyMNE>f pt prim care dr arango</PrimaryPhyMNE> <ReferringPhyMNE>f pt referring dr arango</ReferringPhyMNE> Patient Name: KORIN MARTINEZ Unit Number: [id number] Dictated: 11/03/16918 Transcribed: 11/03/16918 ARG Printed Date/Time: [~ rep prt dt]/[~ rep prt tm] [~ rep ct labl] - [~ rep ct ivnm] [facility] [place] [address] Dictated: 11/03/16918 Transcribed: 11/03/16918 ARG Printed Date/Time: [~ rep prt dt]/[~ rep prt tm] [~ rep ct labl] - [~ rep ct ivnm] Patient: KORIN MARTINEZ Address1: [address] [place] [address] [facility] Rec: [id number] Address2: [facility] Acct ID: [id number] [facility] Zip: [place] [address] Date: 1935 Sex: F Room/Bed: Ref Phy: Alma Bolton D.ORita SC: CARLOS Att Phy: Report #: [id number] [facility] Phy: [facility] Test: [id number] Admit Phy: Beaming Inspector: KUMAR Interpreting Phy: Oli Thompson M.D. Diagnosis: FALL Ordering Phy: Moni Hays M.D. Service Date: 11/03/16 Admit Date: 11/03/16 MNE: PWRSCRIBE CONF: DICTATED BY: Oli Thompson M.D.]] CC: Moni Hays M.D. Grine, Kristen M., D.O. [facility] Endcc: [~ rep ct add3]] LEFT KNEE 1 OR 2 VIEWS ROUTINE CLINICAL HISTORY: Left knee pain status post trauma COMPARISON: None. DISCUSSION: There are postsurgical changes of a total left knee arthroplasty. There is a large joint effusion. There are multiple calcifications within the distal quadriceps tendon. There is an oblique fracture of the left femoral shaft at the junction of the middle and distal one third. There is 22 degrees of vertex dorsal angulation at the fracture site. Distal fragment demonstrates 38 mm of maximal anterior displacement. IMPRESSION: Angulated oblique fracture of the left femur at the junction of the middle and distal one third. Large joint effusion involving the knee. Electronically signed by: Oli Thompson M.D. 11/03/2016 9:20 AM Dictated Date/Time: 11/03/2016 9:19 AM The status of this report is Signed. Draft = Not yet reviewed or approved by Radiologist. Signed = Reviewed and approved by Radiologist. <AttendingPhy></AttendingPhy> <FamilyPhy>Alma Bolton D.O.</FamilyPhy> < PrimaryPhy>[facility]</PrimaryPhy> <UnitNumber>[id number]</UnitNumber> < VisitNumber>[id number]</VisitNumber> <PatientName>KORIN MARTINEZ</ PatientName> <DateOfBirth>1935</DateOfBirth> <Location>[facility]ita[facility]</Location> < ServiceDate>11/03/16</ServiceDate> <MNE>ESINDI</MNE> <OrderingPhy>Moni Hays M.D.</OrderingPhy> <OrderingPhyMNE>f rep ord dr arango</OrderingPhyMNE> < DictatingPhyMNE>f rep dict dr arango</DictatingPhyMNE> <CCListMNE>f rep ct nba</ CCListMNE> <AdmittingPhyMNE>f pt admit dr arango</AdmittingPhyMNE> <AttendingPhyMNE >f pt attend dr arango</AttendingPhyMNE> <ConsultingPhyMNE>f pt consult dr arango</ConsultingPhyMNE> <FamilyPhyMNE>f pt fam dr arango</FamilyPhyMNE> <OtherPhyMNE>f pt other dr arango</OtherPhyMNE> < PrimaryPhyMNE>f pt [place] care dr arango</PrimaryPhyMNE> <ReferringPhyMNE>f pt referring dr arango</ReferringPhyMNE> EKG Reviewed EKG and agree with interpretation as follows: 56 bpm, sinus bradycardia, new T wave inversions in inferior and anterior leads Impression Assessment and Plan 81 y/o female with a history of Alzheimer's disease, lung cancer s/p lung resection, HTN, anxiety and depression, and frontal meningioma who presented to the ED on 11/03 from [facility] with left hip and knee pain following a fall. Head CT shows slight increase in size of known frontal meningioma, otherwise no acute findings. CXR no acute disease. Hip and knee x-rays show angulated fracture of left distal femur. EKG shows new T wave inversions in inferior and anterior leads. Cardiac enzymes negative. UA positive for UTI, labs otherwise grossly unremarkable. Left femur fracture -Consult orthopedics, appreciate recs. Spoke with Francisco Javier Childers PA-C. Will continue immobilizer put in place in ED for now, no traction needed in addition to immobilizer. -Keep NPO for possible procedure -Morphine 4 mg IV q2h prn pain -Complete bed rest -Sheets catheter in place -Consider vancomycin for pre-op antibiotic due to allergies -IVF with NSS 100 cc/hr New T wave inversions--pt asymptomatic -Admit to telemetry. Pt with recent syncopal episodes, concern for arrhythmia -Consult cardiology due to EKG changes and for surgical clearance. High risk pt for surgery. Spoke with Dr. Herman -Trend cardiac enzymes q8h x 3 -Echocardiogram ordered UTI POA--UA positive for leuks and 4+ bacteria -Urine culture pending -Aztreonam 1 gm IV q8h Alzheimer's disease -Continue Aricept 10 mg PO qhs and Namenda 21 mg PO qd HTN--pt currently hypotensive with BP in 90s/50s -IVF as above -Continue amlodipine 5 mg PO qd -Hold HCTZ for now Anxiety and depression -Continue Lexapro 5 mg PO qd and Ativan 0.5 mg PO qd prn anxiety Colitis -Continue budesonide 3 mg PO qd DVT prophylaxis -Hold chemical prophylaxis for now due to possible surgery Code Status -Level V, DO NOT RESUSCITATE Level of Care Telemetry Advanced Directives Existing Living Will: Yes Existing Power of Journalism Instructor: Yes Resuscitation Status DO NOT RESUSCITATE VTE Prophylaxis VTE Risk Assessment Done? Y/N: Yes Risk Level: Moderate Assessment and Plan Attending Addendum: I have physically seen and examined this patient, have directed their medical care, have supervised the physician real estate executive assistant activities, and agree with the H& P as noted above, with the following changes: NONE
[2016-11-03] MEDS: NAMENDA XR - ORDER AWAITING ACTION SCH (16:00)
[2016-11-03] MEDS: LACTOBACILLUS ACIDOPHILUS (FLORANEX) TAB PO SCH (17:00)
[2016-11-03 17:04] LABS: CKMB/CK RATIO 1.2 (0-3.0)
[2016-11-03] MEDS: MoRPHine SULFATE 4 MG/ML 1 ML CARP\\VIAL IV PRN ×2 (17:53→23:23)
--- NOTE | 2016-11-03 18:25 | ECHOCARDIOGRAM REPORT ---
*NOTICE TO RECEIVING LIBERTARIAN AGENCY This information is strictly Confidential and protected under [place] law. [place] law prohibits you from making any further disclosure of this information unless further disclosure is expressly permitted by the written consent of the person to whom it pertains or is authorized by law. A general authorization for the release of medical or other information is not sufficient for this purpose. Hospital accepts no responsibility if the information is made available to any other person, INCLUDING THE PATIENT. Interpretation Summary * Name: KORIN MARTINEZ Study Date: 11/03/2016 02:19 PM * Patient Location: [facility] * : 1935 (M/d/yyyy) Gender: Female Height: 62 in * Age: 81 yrs Ethnicity: [place] Weight: 145 lb * Ordering Physician: Xander Herman * Referring Physician: Self, Referred * Performed By: Liz Hankins RDCS * * Reason For Study: ALT OF CONSCIOUSNESS * BSA: 1.7 m2 * Normal biventricular systolic function. * Mild concentric left ventricular hypertrophy. * Left ventricular diastolic dysfunction. * Normal chamber dimensions. * No significant valvular abnormalities noted. * No cardiac source of emboli noted. * -- Conclusions -- * Aortic valve sclerosis mild, without significant aortic valvular stenosis. Procedure Details * A saline contrast injection was performed to assess for cardiac shunting. * The injection was performed through an intravenous line in the left arm. * The attending nurse who injected the saline contrast was UMU SANCHES RN. * A total of 10 cc of agitated saline was given. * A contrast injection of Definity was performed to improve assessment of LV function. * Contrast was injected into an intravenous site in the left arm. * One vial of Definity ultrasound contrast was diluted in normal saline to a total volume of 10 ml. A total of '2' ml of solution was administered during imaging. * Lot # [id number] of Definity utilized for procedure. * Expiration date DEC 14. * The attending nurse who injected the contrast agent was UMU SANCHES RN. Left Ventricle * The left ventricle is normal in size. * There is mild concentric left ventricular hypertrophy. * Ejection Fraction = 60-65%. * Left ventricular systolic function is normal. * A full diastolic examination was done with clinical findings of Class I diastolic dysfunction. * The left ventricular wall motion is normal. Right Ventricle * The right ventricle is normal in size and function. Atria * The left atrial size is normal. * Right atrial size is normal. * Injection of contrast documented no interatrial shunt. Mitral Valve * There is mild mitral annular calcification. * Mild sclerosis of the mitral valve leaflets. * There is no mitral valve stenosis. * There is no mitral regurgitation noted. Tricuspid Valve * The tricuspid valve is not well visualized. * Significant tricuspid regurgitation is absent. Aortic Valve * The aortic valve is trileaflet. * The aortic valve opens well. * Aortic valve sclerosis mild, without significant aortic valvular stenosis. * Aortic stenosis is absent. * No aortic regurgitation is present. Pulmonic Valve * The pulmonic valve is not well visualized. * The pulmonary valve is inadequately visualized, but the Doppler data is adequate for interpretation. * There is no pulmonic valvular stenosis. * There is no pulmonic valvular regurgitation. Great Vessels * The aortic root is normal size. Pericardium/Pleural * There is no pericardial effusion. Great Vessels * Normal inferior vena cava diameter and respiratory variation suggests normal central venous pressure. MMode 2D Measurements and Calculations IVSd 1.4 cm IVSs 1.8 cm LVIDd 3.3 cm LVIDs 2.2 cm LVPWd 1.3 cm LVPWs 1.5 cm IVS/LVPW 1.1 FS 33.9 % EDV(Teich) 44.4 ml ESV(Teich) 16.0 ml EF(Teich) 64.1 % EDV(cubed) 36.3 ml ESV(cubed) 10.5 ml EF(cubed) 71.1 % % IVS thick 23.0 % % LVPW thick 16.6 % LV mass(C)d 154.1 grams LV mass(C)dI 92.4 grams/m\S\2 LV mass(C)s 127.8 grams LV mass(C)sI 76.7 grams/m\S\2 SV(Teich) 28.5 ml SI(Teich) 17.1 ml/m\S\2 SV(cubed) 25.8 ml SI(cubed) 15.5 ml/m\S\2 Ao root diam 3.1 cm Ao root area 7.4 cm\S\2 LA dimension 2.4 cm LA/Ao 0.77 Doppler Measurements and Calculations MV E max cyndi 64.0 cm/sec MV A max cyndi 94.6 cm/sec MV E/A 0.68 MV dec time 0.32 sec Ao V2 max 138.1 cm/sec Ao max PG 7.6 mmHg Ao max PG (full) 3.3 mmHg LV V1 max PG 4.3 mmHg LV V1 max 103.8 cm/sec
--- NOTE | 2016-11-03 18:53 | CONSULTATION REPORT ---
DATE OF CONSULTATION: 11/03/2016 REASON FOR CONSULT: Left femur fracture. HISTORY OF PRESENT ILLNESS: The patient is an 81-year-old white female who has a history of multiple falls over the last year or so. She is known to our practice with having a bilateral TKA by Dr. Bipin Guo in 2005. She lives at an assisted living home and basically apparently she was trying to get out of bed today and she ended up falling. She had immediate pain in her left thigh and was unable to ambulate. She was brought to the Emergency Room and was found that she had a midshaft to distal third femur fracture of the left femur. She was seen by the medicine service and admitted for further care. We have now been asked to take care of her femur fracture. PAST MEDICAL HISTORY: Dementia, history of recurrent tonsillitis, diabetes mellitus, hypertension, history of lung carcinoma with some peripheral neuropathy, history of meningioma. PAST SURGICAL HISTORY: Bilateral total knee arthroplasties in 2005, lung wedge resection in 2011. FAMILY HISTORY: Heart disease, hypertension, and diabetes mellitus. SOCIAL HISTORY: The patient is a nonsmoker, does not use alcohol. She is and lives in an assisted living home. MEDICATIONS: Amlodipine 5 mg p.o. daily, aspirin 81 mg p.o. q.a.m., budesonide 3 mg p.o. q.a.m., calcium carbonate plus D 1 tab p.o. b.i.d., Benadryl Allergy 1 cap p.o. at bedtime, Colace 1 cap p.o. b.i.d., donepezil 1 tablet p.o. at bedtime, Lexapro 5 mg p.o. q.a.m., hydrochlorothiazide 12.5 mg p.o. daily, loratadine 10 mg p.o. q.a.m., Namenda XR 1 cap p.o. q.a.m., multivitamin 1 tab p.o. daily, probiotic 1 tab p.o. b.i.d., senna 8.6 mg p.o. daily, Nasacort Allergy 1 spray nasally daily, acetaminophen 500 mg p.o. q. 6 hours p.r.n., lorazepam 0.5 mg p.o. daily p.r.n. REVIEW OF SYSTEMS: As per admitting history and physical. PHYSICAL EXAMINATION: EXTREMITIES: On examination of the patient's left lower extremity, she has a noted immobilizer on the left knee. It is partially loosened, but noted that it causes her moderate pain with taking the immobilizer off because of her femur fracture and is essentially left on. She does have moderate swelling of the mid thigh and is tender on palpation. She has no pain at the left hip on palpation and she has no pain of the left ankle and toes and has good range of motion of her left ankle and toes. On examination of the right lower extremity, she is nontender at the hip, knee and ankle and has good range of motion as noted at this time. Upper extremities are benign and she continues to go through active range of motion of her upper extremities off and on and is nontender at the shoulders, elbows and wrists. She complains of some very minimal neck discomfort mostly with a little bit of forward flexion, but none really with rotational or hyperextension. She denies any thoracic or low back pain. She states that she does not have any numbness in the toes at this time in the left lower extremity or the right and it appeared to be equal. Distal pulses are equal bilaterally of the upper and lower extremities. NEUROLOGIC: No gross motor or sensory deficits seen at this time. The patient does have a history of dementia, but is pleasant and alert and answers some questions appropriately. ASSESSMENT: Midshaft to distal third femur fracture of the left femur. PLAN: At this point in time, the patient is being cleared by the medicine service and cardiology. Upon clearance she will have a retrograde nail placed through the knee up into the femur. It is a possibility that if reduction is not achievable by this method she will have to undergo ORIF with plate and screw device. She will also need to have a polyethylene bearing change if going through the knee of her left total knee arthroplasty. Plan for OR tomorrow with Dr. Velasquez as long as the patient has been cleared medically.
[2016-11-03 19:30] VITALS: BP 120/57; PULSE 64; TEMP 37.2; O2SAT 100
[2016-11-03] MEDS: CALCIUM 600MG + VIT D 400 IU TAB PO SCH (20:28)
[2016-11-03] MEDS: DOCUSATE SODIUM 100 MG CAP PO SCH (20:28)
[2016-11-03] MEDS: DONEPEZIL HCL 10 MG TAB PO SCH (20:28)
[2016-11-03] MEDS: AZTREONAM IV 1,000 MG in DEXTROSE 5% 100ML 100 ML IV SCH (23:23)
[2016-11-04] VITALS (19 sets, daily range): BP systolic 117–150; BP diastolic 57–80; PULSE 67–107; TEMP 36.6–38.8; O2SAT 92–100
[2016-11-04 01:11] LABS: CKMB/CK RATIO 1.1 (0-3.0)
[2016-11-04] MEDS: MoRPHine SULFATE 4 MG/ML 1 ML CARP\\VIAL IV PRN ×3 (02:53→19:14)
--- NOTE | 2016-11-04 07:08 | Clinical Documentation Query ---
CLINICAL DOCUMENTATION QUERY 81 year old female who presents to the Emergency Room with complaints of persistent left knee pain after a fall from less than standing position. In your clinical opinion is this patient being managed for: ( x ) Likely osteoporosis related femur fracture in setting of ground level fall that likely would not have fractured young healthy bone. ( ) Other explanation of clinical findings (Please Explain) ( ) Unable to determine (Please Define) ( ) Need to Discuss ( ) Not Agree The medical record reflects the following clinical findings, treatment, and risk factors. Clinical Indicators: 81-y/o female, mid shaft fracture by Xray. Fell getting out of bed. Treatment: ortho consult Risk Factors: Age, sex, long bone fracture that occurred with trauma not significant enough to fracture healthy bone. Please clarify and document your clinical opinion in the progress notes and discharge summary. Terms such as "probable", "suspected", "likely", "questionable", "possible", or "still to be ruled out" are acceptable. IF IN AGREEMENT, YOU MUST DOCUMENT ABOVE DIAGNOSTIC STATEMENT IN DAILY PROGRESS NOTES AND DISCHARGE SUMMARY. This document is not part of the patient's record. Thank You, Allen Boston, PETROS [phone]
[2016-11-04 07:26] LABS: HEMATOCRIT 24.9 % (37-47); MEAN CELL VOLUME 89.9 fL (80-100); MEAN CORPUSCULAR HEMOGLOBIN 29.6 pg (25-34); MEAN CORPUSCULAR HGB CONC 32.9 g/dl (32-36); MEAN PLATELET VOLUME 9.7 fL (7.4-10.4); PLATELET COUNT 123 K/uL (130-400); RED BLOOD COUNT 2.77 M/uL (4.2-5.4); WHITE BLOOD COUNT 9.36 K/uL (4.8-10.8)
[2016-11-04 07:39] LABS: BUN/CREATININE RATIO 25.3 (10-20); CALCIUM 8.3 mg/dl (8.5-10.1); CREATININE 0.83 mg/dl (0.60-1.20); POTASSIUM 3.7 mmol/L (3.5-5.1)
[2016-11-04] MEDS: AZTREONAM IV 1,000 MG in DEXTROSE 5% 100ML 100 ML IV SCH ×3 (07:50→23:45)
[2016-11-04] MEDS: SODIUM CHLORIDE 0.9% 1000ML 1,000 ML IV SCH ×2 (07:52→19:50)
[2016-11-04] MEDS: NAMENDA XR - ORDER AWAITING ACTION SCH ×3 (08:00→16:00)
[2016-11-04] MEDS: LACTOBACILLUS ACIDOPHILUS (FLORANEX) TAB PO SCH ×2 (08:00→17:00)
[2016-11-04] MEDS: ESCITALOPRAM OXALATE 10 MG TAB PO SCH (09:00)
[2016-11-04] MEDS: BUDESONIDE EC 3 MG CAP PO SCH (09:00)
[2016-11-04] MEDS: CALCIUM 600MG + VIT D 400 IU TAB PO SCH ×2 (09:00→20:32)
[2016-11-04] MEDS: DOCUSATE SODIUM 100 MG CAP PO SCH ×2 (09:00→20:32)
[2016-11-04] MEDS: LORATADINE 10 MG TAB PO SCH (09:00)
[2016-11-04] MEDS: SENNA 8.6 MG TAB PO SCH (09:00)
--- NOTE | 2016-11-04 09:14 | Hospitalist Progress Note ---
Hospitalist Progress Note Date of Service Nov 04, 2016. (Shaila Villa ., PARomanC) Subjective Pt evaluation today including: conversation w/ patient, physical exam, chart review, lab review, review of studies, review of inpatient medication list Voiding: garcia catheter in place (draining clear/yellow urine) Patient resting in bed, no signs of acute distress. Easily aroused. Pleasantly confused- h/o dementia; does not remember why she came to ED, cannot recall how she fell yesterday. Admits to mild left lower extremity pain. Follows physical exam commands and answers questions appropriately. Limited ROS secondary to mental status: denies CP, SOB, cough, or abdominal pain, numbness/tingling. (Shaila Villa ., PA-C) Medications Current Inpatient Medications Medications (Trade) Dose Ordered Sig/Heri Route Start Time Stop Time Status Last Admin Dose Admin Acetaminophen (Tylenol Tab) 650 mg Q4H PRN PO 11/03/16 13:00 12/03/16 12:59 Al Hydrox/Mg Hydrox/Simethicone (Maalox Max Susp) 15 ml Q4H PRN PO 11/03/16 13:00 12/03/16 12:59 Magnesium Hydroxide (Milk Of Magnesia Susp) 30 ml Q6H PRN PO 11/03/16 13:00 12/03/16 12:59 Polyethylene (Miralax Powder Packet) 17 gm DAILY PRN PO 11/03/16 13:00 12/03/16 12:59 Ondansetron HCl (Zofran Inj) 4 mg Q6H PRN IV 11/03/16 13:00 12/03/16 12:59 Amlodipine Besylate (Norvasc Tab) 5 mg DAILY PO 11/04/16 09:00 12/04/16 08:59 Budesonide (Entocort EC Cap) 3 mg QAM PO 11/04/16 09:00 12/04/16 08:59 Diphenhydramine HCl (Benadryl Cap) 25 mg HS PO 11/03/16 21:00 12/03/16 20:59 11/03/16 20:28 25 MG Docusate Sodium (coLACE CAP) 100 mg BID PO 11/03/16 21:00 12/03/16 20:59 11/03/16 20:28 100 MG Escitalopram Oxalate (Lexapro Tab) 5 mg QAM PO 11/04/16 09:00 12/04/16 08:59 Loratadine (Claritin Tab) 10 mg QAM PO 11/04/16 09:00 12/04/16 08:59 Lorazepam (Ativan Tab) 0.5 mg DAILY PRN PO 11/03/16 13:00 12/03/16 12:59 Senna (Senokot Tab) 8.6 mg DAILY PO 11/04/16 09:00 12/04/16 08:59 Calcium/Vitamin D (Caltrate Plus Tab) 1 tab BID PO 11/03/16 21:00 12/03/16 20:59 11/03/16 20:28 1 TAB Donepezil HCl (Aricept Tab) 10 mg HS PO 11/03/16 21:00 12/03/16 20:59 11/03/16 20:28 10 MG Miscellaneous Information (Order Awaiting Action) 1 ea QS N/A 11/03/16 16:00 12/03/16 15:59 Lactobacillus Acidophilus (Floranex Tab) 4 tab BID@0800,1700 PO 11/03/16 17:00 12/03/16 16:59 Morphine Sulfate (MoRPHine SULFATE INJ) 4 mg Q2H PRN IV 11/03/16 13:00 11/17/16 12:59 11/04/16 02:53 4 MG Sodium Chloride 1,000 ml @ 100 mls/hr Q10H IV 11/03/16 13:00 12/03/16 12:59 11/04/16 07:52 100 MLS/HR Aztreonam 1000 mg/ Dextrose 110 ml @ 100 mls/hr Q8H IV 11/04/16 00:00 11/08/16 15:59 11/04/16 07:50 100 MLS/HR (Shaila Villa, FRANCA) Objective Vital Signs Date Time Temp Pulse Resp B/P (MAP) Pulse Ox O2 Delivery O2 Flow Rate FiO2 11/04/16 04:00 100 Room Air 11/04/16 03:38 36.9 70 18 117/59 (78) 95 Nasal Cannula 2.5 11/04/16 00:00 96 Room Air 11/04/16 00:00 36.6 68 18 148/80 (102) 100 Room Air 11/03/16 19:30 37.2 64 15 120/57 (78) 100 3.0 11/03/16 15:20 36.7 62 22 95/51 96 11/03/16 15:16 62 22 95/51 96 Nasal Cannula 2.0 11/03/16 14:00 65 22 93/49 96 Room Air 11/03/16 13:32 64 11/03/16 12:00 56 16 102/51 100 Nasal Cannula 2.0 11/03/16 11:00 97 22 96/54 96 Nasal Cannula 2.0 11/03/16 10:15 53 22 113/53 98 Nasal Cannula 2.0 11/03/16 09:45 93 Nasal Cannula 2.0 11/03/16 09:15 55 22 119/80 93 Nasal Cannula 2.0 (Shaila Villa ., PA-C) Physical Exam General Appearance: no apparent distress Eyes: normal inspection, PERRL ENT: hearing grossly normal Neck: supple Respiratory/Chest: lungs clear, no respiratory distress, no accessory muscle use Cardiovascular: regular rate, rhythm, + gallop/S3 Abdomen: normal bowel sounds, non tender, soft Extremities: + swelling (non-pitting LLE swelling), + pertinent finding ( immoblizer to left kneee ) Neurologic/Psychiatric: alert, + disoriented, + pertinent finding (good sensation to bilateral feet; wiggles toes/ankles bilaterally ) Skin: normal color, warm/dry, no rash (Shaila Villa, PA-C) Laboratory Results Last 24 Hours Test 11/03/16 10:10 11/03/16 16:20 11/04/16 00:25 11/04/16 06:40 Urine Color YELLOW Urine Appearance CLOUDY Urine pH 7.0 Urine Specific Stow 1.018 Urine Protein NEG Urine Glucose (UA) NEG Urine Ketones NEG Urine Occult Blood NEG Urine Nitrite NEG Urine Bilirubin NEG Urine Urobilinogen NEG Urine Leukocyte Esterase MODERATE Urine WBC (Auto) 5-10 /hpf Urine RBC (Auto) 0-4 /hpf Urine Hyaline Casts (Auto) 1-5 /lpf Urine Epithelial Cells (Auto) >30 /lpf Urine Bacteria (Auto) 4+ Urine Yeast (Auto) Total Creatine Kinase 83 U/L 128 U/L Creatine Kinase MB 1.0 ng/ml 1.4 ng/ml Creatine Kinase MB Ratio 1.2 1.1 Troponin I < 0.015 ng/ml < 0.015 ng/ml White Blood Count 9.36 K/uL Red Blood Count 2.77 M/uL Hemoglobin 8.2 g/dL Hematocrit 24.9 % Mean Corpuscular Volume 89.9 fL Mean Corpuscular Hemoglobin 29.6 pg Mean Corpuscular Hemoglobin Concent 32.9 g/dl RDW Standard Deviation 45.3 fL RDW Coefficient of Variation 13.7 % Platelet Count 123 K/uL Mean Platelet Volume 9.7 fL Sodium Level 146 mmol/L Potassium Level 3.7 mmol/L Chloride Level 109 mmol/L Carbon Dioxide Level 29 mmol/L Anion Gap 8.0 mmol/L Blood Urea Nitrogen 21 mg/dl Creatinine 0.83 mg/dl Est Creatinine Clear Calc Drug Dose 45.3 ml/min Estimated GFR () 75.6 Estimated GFR (Non- 65.2 BUN/Creatinine Ratio 25.3 Random Glucose 125 mg/dl Calcium Level 8.3 mg/dl (Shaila Villa, PA-C) Assessment and Plan 81 y/o female with a history of Alzheimer's disease, lung cancer s/p lung resection, HTN, anxiety and depression, and frontal meningioma who presented to the ED on 11/03 from [facility] with left hip and knee pain following a fall. Head CT shows slight increase in size of known frontal meningioma, otherwise no acute findings. CXR no acute disease. Hip and knee x-rays show angulated fracture of left distal femur. EKG shows new T wave inversions in inferior and anterior leads. Cardiac enzymes negative. UA positive for UTI, labs otherwise grossly unremarkable. Left femur fracture, secondary to fall- cause unknown, ?cardiac vs mechanical: - Head CT- unremarkable for acute intracranial abnormalities - CXR- no acute cardiopulmonary process - Consult orthopedics, appreciate recommendations -- Immobilizer placed in ED -- Planning for OR on 11/04 w/ Dr. Velasquez -- Type and screen/cross w/ transfusion ordered for 1 u pRBCs for preop on 11/04 - NPO for possible procedure - Morphine 4 mg IV q2h PRN and Tylenol 650 mg q4 hrs PRN for pain management - Bedrest- Garcia catheter in place - IVF with NSS 100 cc/hr New T wave inversions noted on EKG: - Admit to telemetry for cardiac monitoring- no acute events, sinus 60s - Trend cardiac enzymes- negative x3 - Follow EKG QAM and PRN w/ CP -- Noted LBBB on 11/04 EKG - ECHO 11/03: * Normal biventricular systolic function. * Mild concentric left ventricular hypertrophy. * Left ventricular diastolic dysfunction. * Normal chamber dimensions. * No significant valvular abnormalities noted. * No cardiac source of emboli noted. * Aortic valve sclerosis mild, without significant aortic valvular stenosis. - Cardiology consulted, appreciate recommendations UTI POA: - UCx- growing gram + cocci- sensitives pending - Aztreonam 1 gm IV q8h (started on 11/03)- IV Vancomycin preop- will continue this postop and d/c Aztreonam (started on 11/04) Alzheimer's disease- follows w/ Dr. Amado: Continue Aricept 10 mg HS and Namenda 21 mg daily Frontal meningioma- noted on Mar [address]- follows w/ Dr. 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 Discussed with ADRIÁN Villa and agree with findings and plan as documented in the note. Any exceptions or clarifications are listed here: Pt about to be taken down to OR. Discussed case with CArdiology. Possible new LBBB but ECHO with preserved LVEF, no WMA, troponins neg x 3, pt asymptomatic. Could be having heart blocks leading to her h/o falls and syncope. Ok for surgery. BPs low but about to get PRBCs on the way to the OR. Vitals and tele reviewed with Cardiology NAD, alert and awake RRR no mgr CTAB breathing unlabored, no wcr Abd soft NT Left leg with immobilizer in place 81 to female with left femur fracture with osteoporotic fracture from fall from less than standing height, LBBB and ECG changes with h/o recurrect synope and presyncope. -continue tele after surgery to look for blocks -appreciate Ortho management of fracture -follow Hgb and transfuse as needed to keep hgb > 7-8 -will need treatment for osteoporosis -DVT proph as per Ortho Documented By: Laura Winston (Laura Winston MD)
[2016-11-04] MEDS: ACETAMINOPHEN 325 MG TAB PO PRN ×2 (11:20→23:42)
--- NOTE | 2016-11-04 11:57 | Cardiology Follow-Up ---
Subjective Date of Service: Nov 04, 2016. Pt evaluation today including: conversation w/ patient, conversation w/ family , physical exam, lab review, review of studies, review of inpatient medication list History of Present Illness This is a 81-year-old woman with a history of progressive Alzheimer's dementia as well as a number of falls in the past. She was seen in the emergency room on 01/19/2015 with a fall while weeding her yard and she had minor injury to her right elbow, then she presented on 05/07/2015 with a number of presyncopal events including a fall in her shower. She apparently was weak, slid to the ground and was incontinent. She then presented to the emergency room 12/01/2015 with a fall 2 days before that where she fell and hit the back of her head but denies losing consciousness. Then on 12/14/2015 she came to the emergency room with a fall where she suddenly fell backwards without warning, this was not witnessed and is not clear if she lost consciousness. She then fell again 2016 with injury to her left knee, apparently this was due to tripping. She now presents having fallen while trying to get out of bed. She will evidently need surgery for a knee injury. As part of her evaluation an electrocardiogram showed sinus bradycardia with inferior and anterior T-wave inversions, these were new compared to her prior electrocardiograms from September 2016 (and a number from earlier than that as well). An echocardiogram done 12/14/2015 showed normal left ventricular size and function. She did have a dobutamine stress echo done on 11/10/2011, this was normal at greater than 100% of her predicted maximal heart rate. Today she is feeling well other than left knee pain. Social History Smoking Status: Never Smoker History of Alcohol Use: No Review of Systems Respiratory: No cough, No wheezing, No shortness of breath, No dyspnea on exertion Cardiac: No chest pain, No orthopnea, No PND, No edema, No palpitations Left knee pain Objective Vital Signs Past 12 Hours Date Time Temp Pulse Resp B/P (MAP) Pulse Ox O2 Delivery O2 Flow Rate FiO2 11/04/16 08:09 36.8 67 20 136/63 (87) 93 Room Air 11/04/16 04:00 100 Room Air 11/04/16 03:38 36.9 70 18 117/59 (78) 95 Nasal Cannula 2.5 11/04/16 00:00 96 Room Air 11/04/16 00:00 36.6 68 18 148/80 (102) 100 Room Air Last Recorded Weight-Kilograms: 64.500 Physical Exam Constitutional: General Apperance: heathly-appearing Level of Distress: NAD Lungs: Respiratory effort: no dyspnea, good air movement Auscultation: breath sounds normal, no wheezing Cardiovascular: Heart Auscultation: RRR, no murmurs, no rubs, no gallops Peripheral Pulses: Bruits: none appreciated Extremities: no edema Left knee swollen and painful Data Laboratory Results: Last 24 Hours Test 11/03/16 16:20 11/04/16 00:25 11/04/16 06:40 Total Creatine Kinase 83 U/L 128 U/L Creatine Kinase MB 1.0 ng/ml 1.4 ng/ml Creatine Kinase MB Ratio 1.2 1.1 Troponin I < 0.015 ng/ml < 0.015 ng/ml White Blood Count 9.36 K/uL Red Blood Count 2.77 M/uL Hemoglobin 8.2 g/dL Hematocrit 24.9 % Mean Corpuscular Volume 89.9 fL Mean Corpuscular Hemoglobin 29.6 pg Mean Corpuscular Hemoglobin Concent 32.9 g/dl RDW Standard Deviation 45.3 fL RDW Coefficient of Variation 13.7 % Platelet Count 123 K/uL Mean Platelet Volume 9.7 fL Sodium Level 146 mmol/L Potassium Level 3.7 mmol/L Chloride Level 109 mmol/L Carbon Dioxide Level 29 mmol/L Anion Gap 8.0 mmol/L Blood Urea Nitrogen 21 mg/dl Creatinine 0.83 mg/dl Est Creatinine Clear Calc Drug Dose 45.3 ml/min Estimated GFR () 75.6 Estimated GFR (Non- 65.2 BUN/Creatinine Ratio 25.3 Random Glucose 125 mg/dl Calcium Level 8.3 mg/dl Imaging: Echocardiography shows normal left ventricular function with no wall motion abnormalities. EKG: This morning sinus rhythm with intact AV conduction but a left bundle branch block pattern. Telemetry reviewed: Sinus rhythm, no significant arrhythmia. Assessment and Plan #1. Abnormal electrocardiogram: She had new T-wave inversions on admission here in both inferior and anterior leads, compared to electrocardiogram just 1 month ago and prior ones. Her QRS duration was narrow. Today however she has a left bundle branch block pattern, so I suspect the electric cardiographic changes are due to intermittent left bundle which can produce that finding. Cardiac enzymes have been negative. We therefore have no evidence that she has ischemia. #2. Frequent falls: The cause of the falls is unknown, she cannot provide adequate history. It is certainly possible these could represent an arrhythmia, possibly bradycardia based on her electrocardiogram (which could be either sinus bradycardia or AV block since she has intermittent left bundle branch block). Although it may not be important in advance of surgery I think we need to follow-up on this, possibly with accelerator systems director monitoring but at least monitoring while she is in the hospital to see whether she has transient arrhythmias. #3. Bradycardia: She does have sinus bradycardia, it is not severe but she could have sick sinus syndrome and more significant arrhythmias that we have not seen. She is not on any medications to cause bradycardia. This could contribute to falls on occasion. #4. Left bundle-branch block: The first identification of this that I know of his this morning's electrocardiogram, but it does probably explain her T-wave abnormalities on yesterday's electrocardiogram. This could also indicate that she has transient heart block causing her falls. I would not do anything other than monitoring at the moment, including possible accelerator systems director monitoring after surgery. I would consider her relatively low risk for surgery from the cardiovascular standpoint, and would proceed. Thank you for allowing me to participate in her care.
[2016-11-04] MEDS ORDERED: VANCOMYCIN 1GM/270ML NSS ONE (12:30)
--- NOTE | 2016-11-04 12:35 | History & Physical Bridge Note ---
H&P Re-Evaluation Bridge Note: I have examined the patient, reviewed the History & Physical and in the interval since the performance of the History & Physical I have noted the following changes of clinical significance: No changes noted
[2016-11-04] MEDS ORDERED: FENTANYL CITRATE INJ 50 MCG/1 ML 2 ML VIAL ONE (13:09)
[2016-11-04] MEDS ORDERED: MIDAZOLAM HCL 1 MG/ML 2ML VIAL ONE (13:09)
[2016-11-04] MEDS ORDERED: BUPIVACAINE/EPINEPHRINE 0.5% MPF 1:200,000 30 ML VIAL ONE (13:23)
[2016-11-04] MEDS ORDERED: LACTATED RINGER'S 1000ML 1,000 ML IV PRN (14:16)
[2016-11-04] MEDS ORDERED: BACITRACIN 50000 UNIT VIAL ONE (14:23)
[2016-11-04] MEDS ORDERED: ONDANSETRON INJ 2 MG/ML 2 ML VIAL IV PRN ×2 (14:30→16:45)
[2016-11-04] MEDS ORDERED: LIDOCAINE HCL 2% 2 ML VIAL (20MG/ML) ONE (14:37)
[2016-11-04] MEDS ORDERED: PROPOFOL IV EMULSION 10 MG/ML 20 ML VIAL IV ONE (14:37)
[2016-11-04] MEDS ORDERED: EpHEDrine SULFATE 50MG/5ML SYR ONE (14:37)
[2016-11-04] MEDS ORDERED: PHENYLEPHRINE 100MCG/ML 5ML SYR ONE (14:37)
--- NOTE | 2016-11-04 16:19 | DIAGNOSTIC IMAGING REPORT ---
INTRAOPERATIVE FLUOROSCOPIC IMAGES OF THE LEFT FEMUR CLINICAL HISTORY: Left IM enrrique. COMPARISON: Left hip and knee radiographs November 03, 2016. Fluoroscopy time: 2 minutes and 33 seconds. FINDINGS: 7 fluoroscopic images demonstrate placement of a left femoral intramedullary enrrique with proximal and distal screws. Alignment of the diaphyseal fracture of the left femur has markedly improved and is now near anatomic. A left knee arthroplasty is again noted. IMPRESSION: Expected findings following internal fixation of the left femoral fracture. Electronically signed by: Matt Julio M.D. 11/04/2016 4:18 PM Dictated Date/Time: 11/04/2016 4:16 PM
--- NOTE | 2016-11-04 16:40 | [facility] Post Operative Brief Note ---
Immediate Operative Summary Operative Date Nov 04, 2016. Pre-Operative Diagnosis Left periprosthetic femur fracture, s/p L TKA Post-Operative Diagnosis same Procedure(s) Performed Left Femur Retograde Intramedullary Nailing and Poly Exchange Surgeon Dr. Velasquez Destaticizer Feeder Surgeon(s) Francisco Javier Yi PA-C Estimated Blood Loss 300 ml Findings above Specimens A. Explanted poly Drains 0 Anesthesia spinal Complication(s) None Disposition Recovery Room / PACU
[2016-11-04] MEDS ORDERED: MAGNESIUM HYDROXIDE SUSP 30 ML UDC PO PRN (16:45)
[2016-11-04] MEDS ORDERED: METOCLOPRAMIDE HCL INJ 5 MG/ML 2 ML VIAL IV PRN (16:45)
[2016-11-04] MEDS ORDERED: ALUMINUM/MAGNESIUM/SIMETH (MAALOX MAX) 30 ML UDC PO PRN (16:45)
[2016-11-04] MEDS ORDERED: NO NSAIDS SCH (16:45)
[2016-11-04] MEDS: FENTANYL CITRATE INJ 50 MCG/1 ML 2 ML VIAL IV PRN ×7 (17:03→17:54)
--- NOTE | 2016-11-04 17:29 | Anesthesiology Progress Note ---
Anesthesia Post Op Note Date & Time Nov 04, 2016 at 17:29 Vital Signs Pain Intensity: 8.0 Vital Signs Past 12 Hours Date Time Temp Pulse Resp B/P (MAP) Pulse Ox O2 Delivery O2 Flow Rate FiO2 11/04/16 17:20 69 19 11/04/16 17:20 82 19 100 11/04/16 17:19 173/65 11/04/16 17:15 66 20 11/04/16 17:15 69 20 100 11/04/16 17:10 65 15 11/04/16 17:10 63 15 100 11/04/16 17:09 70 12 100 11/04/16 17:09 70 12 11/04/16 17:08 161/69 11/04/16 17:05 169/67 11/04/16 17:04 73 19 100 11/04/16 17:04 71 19 11/04/16 16:59 82 15 11/04/16 16:59 67 15 11/04/16 16:57 163/68 11/04/16 16:54 66 13 11/04/16 16:54 77 13 11/04/16 16:49 117 18 98 11/04/16 16:49 79 18 11/04/16 16:46 123/94 11/04/16 16:44 36.2 78 18 123/94 97 Nasal Cannula 4 11/04/16 16:00 Room Air 11/04/16 13:40 36.8 74 21 138/64 94 11/04/16 13:03 37.3 73 16 135/59 93 11/04/16 12:30 37.2 72 18 138/58 94 11/04/16 12:20 37.3 76 20 120/78 94 11/04/16 12:12 37.0 73 16 136/61 92 11/04/16 12:00 97 Room Air 11/04/16 11:38 37.1 76 20 138/57 (84) 96 Room Air 11/04/16 08:09 36.8 67 20 136/63 (87) 93 Room Air 11/04/16 08:00 97 Room Air Notes Mental Status: alert / awake / arousable, participated in evaluation Pt Amnestic to Procedure: Yes Nausea / Vomiting: adequately controlled Pain: adequately controlled Airway Patency, RR, SpO2: stable & adequate BP & HR: stable & adequate Hydration State: stable & adequate Anesthetic Complications: no major complications apparent
[2016-11-04] MEDS: FERROUS GLUCONATE 324 MG TAB PO SCH (19:50)
[2016-11-04] MEDS: AMLODIPINE BESYLATE 5 MG TAB PO SCH (19:50)
[2016-11-04] MEDS: DONEPEZIL HCL 10 MG TAB PO SCH (20:32)
[2016-11-04] MEDS: ASPIRIN 81 MG ECTAB PO SCH (20:32)
[2016-11-05] VITALS (14 sets, daily range): BP systolic 117–135; BP diastolic 52–65; PULSE 76–99; TEMP 37.1–39; O2SAT 90–99
--- NOTE | 2016-11-05 01:30 | OPERATIVE REPORT ---
DATE OF OPERATION: 11/04/2016 PREOPERATIVE DIAGNOSIS: Left periprosthetic femur fracture status post total knee arthroplasty. POSTOPERATIVE DIAGNOSIS: Same. PROCEDURE: Open reduction and internal fixation with retrograde intramedullary nail, left periprosthetic femur fracture and polyethylene exchange. SURGEON: Abner Velasquez MD TEACHERS ASSISTANT: Francisco Javier Yi PA-C who was necessary for assistance with the procedure with positioning, prepping, draping, retraction and closure. ANESTHESIA: Spinal. COMPLICATIONS: None. ESTIMATED BLOOD LOSS: 300 mL. IMPLANTS: Synthes retrograde femoral nail 11 x 300 and a Fernando polyethylene 4 x 11 for a size 5 femur with a 4 tibia. DRAINS: None. COMPLICATIONS: None. INDICATIONS: The patient is an 81-year-old female, who about 11 years ago had undergone bilateral total knee arthroplasty. She had done well postoperatively. She sustained a fall. She sustained a distal third spiral oblique femoral fracture. She was cleared medically to proceed with surgery. Risks, benefits and alternatives of surgery including but not limited to infection, DVT, pain, stiffness, need for revision surgery, nonunion, damage to blood vessels, damage to nerves and risks of anesthesia were discussed with the patient and family and they wished to proceed. DESCRIPTION OF PROCEDURE: The patient was identified, laterality was confirmed and marked. She received a preoperative antibiotic. She was taken to the operating room, given a spinal anesthetic and then placed in the supine position. The left leg was prepped and draped in usual sterile manner with ChloraPrep. I reutilized her previous anterior total knee incision, sharply incising through the skin, utilizing Bovie electrocautery to achieve hemostasis. I made a medial parapatellar arthrotomy. She has a small calcific deposit in the region of her previous arthrotomy that was debrided out with a combination of Bovie as well as a rongeur. I then entered into the joint. There was hemarthrosis within the joint, but no evidence of infection or significant wear. The scar tissue from the inferior aspect of the patellar tendon was debrided. I then used an osteotome to elevate her previous polyethylene liner. I removed it with a tenaculum and then removed the metal locking clip. She previously had injury to her femoral canal for positioning of the alignment enrrique for total knee. I removed some scar tissue from this and very easily was able to place a guide enrrique up into the femur. I then held traction and then reduced the fracture and passed a guide enrrique proximally. This sequentially reamed up to a size 12.5 mm. I then utilized 11 mm with nail and measured for a 300 mm length. I then advanced the Synthes retrograde IM nail along the guide enrrique. I confirmed reduction on AP and lateral fluoroscopy views. We had excellent reduction on the lateral. She had a little bit of lateral translation on the AP, but was out to length and overall was a good reduction. We then through stab incisions placed 2 interlocking screws in the distal aspect of the femur. Then under fluoroscopic guidance, I made a longitudinal incision over the proximal aspect of the femur. I sharply incised the skin and then bluntly dissecting down through subcutaneous fat I bluntly dissected through the fascia down to bone. Then under fluoroscopic guidance, obtained perfect circles and placed 2 interlocking screws proximally. The more proximal one in a dynamic mode for possible dynamization later, the other in a static fixation. I confirmed length of the screws. AP and lateral fluoroscopy views confirmed maintenance of the reduction. The wound was thoroughly irrigated. I then placed a new 4 x 11 poly into the total knee. The proximal incision was closed with interrupted 2-0 Vicryl suture and skin with ruma. The lateral stab incisions were closed with interrupted 2-0 Vicryl suture and ruma. Then the arthrotomy was closed with interrupted #1 Vicryl sutures, subcutaneous tissues with interrupted 2-0 Vicryl suture and skin with ruma. A sterile dressing was applied and an Juanjose wrap placed. All needle and sponge counts were correct at the end of the procedure. The patient was transferred to the PACU in stable condition without apparent complication. I attest to the content of the Intraoperative Record and any orders documented therein. Any exception s are noted below.
[2016-11-05] MEDS: SODIUM CHLORIDE 0.9% 1000ML 1,000 ML IV SCH ×2 (05:27→15:20)
[2016-11-05 06:03] LABS: HEMATOCRIT 25.6 % (37-47); MEAN CELL VOLUME 86.8 fL (80-100); MEAN CORPUSCULAR HEMOGLOBIN 28.8 pg (25-34); MEAN CORPUSCULAR HGB CONC 33.2 g/dl (32-36); MEAN PLATELET VOLUME 9.9 fL (7.4-10.4); PLATELET COUNT 100 K/uL (130-400); RED BLOOD COUNT 2.95 M/uL (4.2-5.4); WHITE BLOOD COUNT 13.53 K/uL (4.8-10.8)
[2016-11-05 06:43] LABS: BUN/CREATININE RATIO 22.1 (10-20); CALCIUM 8.1 mg/dl (8.5-10.1); CREATININE 0.77 mg/dl (0.60-1.20); POTASSIUM 4.1 mmol/L (3.5-5.1)
--- NOTE | 2016-11-05 06:52 | Clinical Documentation Query ---
CLINICAL DOCUMENTATION QUERY Operative record states this fracture that was repaired as a left periprosthetic femur fracture status post total knee arthroplasty. Radiology reports make no reference of prosthesis being involved in fracture. "There is an oblique fracture of the left femoral shaft at the junction of the middle and distal one third. . . ." In your clinical opinion is this patient being managed for: ( ) Left femoral periprosthetic fracture. Please specify what part of prosthesis was involved in fracture. ( ) Left distal middle to distal one third femoral fracture without prosthetic involvement. Please clarify and document your clinical opinion in the progress notes and discharge summary. Terms such as "probable", "suspected", "likely", "questionable", "possible", or "still to be ruled out" are acceptable. IF IN AGREEMENT, YOU MUST DOCUMENT ABOVE DIAGNOSTIC STATEMENT IN DAILY PROGRESS NOTES AND DISCHARGE SUMMARY. This document is not part of the patient's record. Thank You, Allen Boston, RN [phone]
[2016-11-05] MEDS: OXYCODONE HCL IR 5 MG TAB (IMMEDIATE RELEASE) PO PRN ×2 (07:39→13:14)
[2016-11-05] MEDS: MULTIVITAMIN TAB PO SCH (07:40)
[2016-11-05] MEDS: ASPIRIN 81 MG ECTAB PO SCH ×2 (07:41→19:54)
[2016-11-05] MEDS: DOCUSATE SODIUM 100 MG CAP PO SCH ×2 (07:41→19:54)
[2016-11-05] MEDS: FERROUS GLUCONATE 324 MG TAB PO SCH ×3 (07:41→16:40)
[2016-11-05] MEDS: PANTOprazole SOD 40 MG TAB PO SCH (07:41)
[2016-11-05] MEDS: BUDESONIDE EC 3 MG CAP PO SCH (07:41)
[2016-11-05] MEDS: SENNA 8.6 MG TAB PO SCH (07:42)
[2016-11-05] MEDS: LACTOBACILLUS ACIDOPHILUS (FLORANEX) TAB PO SCH ×2 (07:42→16:43)
[2016-11-05] MEDS: ESCITALOPRAM OXALATE 10 MG TAB PO SCH (07:42)
[2016-11-05] MEDS: LORATADINE 10 MG TAB PO SCH (07:42)
[2016-11-05] MEDS: AZTREONAM IV 1,000 MG in DEXTROSE 5% 100ML 100 ML IV SCH (07:44)
[2016-11-05] MEDS: CALCIUM 600MG + VIT D 400 IU TAB PO SCH ×2 (07:45→19:54)
[2016-11-05] MEDS: NAMENDA XR - ORDER AWAITING ACTION SCH ×4 (07:48→23:42)
[2016-11-05] MEDS ORDERED: VANCOMYCIN CONSULT ACTIVE PRN (08:45)
[2016-11-05] MEDS ORDERED: VANCOMYCIN INJ 1,000 MG in SODIUM CHLORIDE 0.9% 250ML 250 ML IV SCH ×3 (09:00)
[2016-11-05] MEDS ORDERED: VANCOMYCIN INJ 1,750 MG in SODIUM CHLORIDE 0.9% 500ML 500 ML IV SCH (09:00)
--- NOTE | 2016-11-05 10:15 | Cardiology Follow-Up ---
Subjective Date of Service: Nov 05, 2016. Pt evaluation today including: conversation w/ patient, conversation w/ family , physical exam, lab review, review of studies, review of inpatient medication list History of Present Illness This is a 81-year-old woman with a history of progressive Alzheimer's dementia as well as a number of falls in the past. She was seen in the emergency room on 01/19/2015 with a fall while weeding her yard and she had minor injury to her right elbow, then she presented on 05/07/2015 with a number of presyncopal events including a fall in her shower. She apparently was weak, slid to the ground and was incontinent. She then presented to the emergency room 12/01/2015 with a fall 2 days before that where she fell and hit the back of her head but denies losing consciousness. Then on 12/14/2015 she came to the emergency room with a fall where she suddenly fell backwards without warning, this was not witnessed and is not clear if she lost consciousness. She then fell again 2016 with injury to her left knee, apparently this was due to tripping. She now presents having fallen while trying to get out of bed. As part of her evaluation an electrocardiogram showed sinus bradycardia with inferior and anterior T-wave inversions, these were new compared to her prior electrocardiograms from September 2016 (and a number from earlier than that as well). An echocardiogram done 12/14/2015 showed normal left ventricular size and function. She did have a dobutamine stress echo done on 11/10/2011, this was normal at greater than 100% of her predicted maximal heart rate. Here for the first time that we are aware of she had a left bundle branch block on her electrocardiogram, this may explain her T-wave abnormalities. Additionally suggests a conduction abnormality which could be involved in bradycardia (which we've not identified) as a cause of her falls. She underwent surgery yesterday and is recovering well from that. Social History Smoking Status: Never Smoker History of Alcohol Use: No Review of Systems Respiratory: No cough, No wheezing, No shortness of breath, No dyspnea on exertion Cardiac: No chest pain, No orthopnea, No PND, No edema, No palpitations Left knee pain Objective Vital Signs Past 12 Hours Date Time Temp Pulse Resp B/P (MAP) Pulse Ox O2 Delivery O2 Flow Rate FiO2 11/05/16 08:20 81 14 117/58 (77) 97 Nasal Cannula 1.0 11/05/16 08:00 90 Room Air 11/05/16 07:01 37.1 85 21 123/61 (81) 99 Nasal Cannula 2.0 11/05/16 04:00 Nasal Cannula 2.0 11/05/16 03:08 37.3 82 24 117/55 (75) 99 Nasal Cannula 2.0 11/05/16 02:11 37.5 11/05/16 00:25 38.5 11/04/16 23:59 Nasal Cannula 2.0 11/04/16 23:37 38.8 11/04/16 23:00 107 21 140/66 (90) 97 Nasal Cannula 2.0 11/04/16 22:25 37.7 96 22 122/70 (87) 97 Nasal Cannula 2.0 Last Recorded Weight-Kilograms: 69.700 Physical Exam Constitutional: General Apperance: heathly-appearing Level of Distress: NAD Lungs: Respiratory effort: no dyspnea, good air movement Auscultation: breath sounds normal, no wheezing Cardiovascular: Heart Auscultation: RRR, no murmurs, no rubs, no gallops Peripheral Pulses: Bruits: none appreciated Extremities: no edema Left knee swollen and painful Data Laboratory Results: Last 24 Hours Test 11/04/16 19:07 11/05/16 05:25 Bedside Glucose 132 mg/dl White Blood Count 13.53 K/uL Red Blood Count 2.95 M/uL Hemoglobin 8.5 g/dL Hematocrit 25.6 % Mean Corpuscular Volume 86.8 fL Mean Corpuscular Hemoglobin 28.8 pg Mean Corpuscular Hemoglobin Concent 33.2 g/dl RDW Standard Deviation 45.8 fL RDW Coefficient of Variation 14.4 % Platelet Count 100 K/uL Mean Platelet Volume 9.9 fL Sodium Level 146 mmol/L Potassium Level 4.1 mmol/L Chloride Level 111 mmol/L Carbon Dioxide Level 27 mmol/L Anion Gap 8.0 mmol/L Blood Urea Nitrogen 17 mg/dl Creatinine 0.77 mg/dl Est Creatinine Clear Calc Drug Dose 50.6 ml/min Estimated GFR () 82.8 Estimated GFR (Non- 71.4 BUN/Creatinine Ratio 22.1 Random Glucose 152 mg/dl Calcium Level 8.1 mg/dl Telemetry reviewed: Sinus rhythm, no evidence of AV block Assessment and Plan #1. Abnormal electrocardiogram: She had new T-wave inversions on admission here in both inferior and anterior leads, compared to electrocardiogram just 1 month ago and prior ones. Her QRS duration was narrow. On 11/04/2016 however she has a left bundle branch block pattern, so I suspect the electrocardiographic changes are due to intermittent left bundle which can produce that finding. Cardiac enzymes have been negative. We therefore have no evidence that she has ischemia. #2. Frequent falls: The cause of the falls is unknown, she cannot provide adequate history. It is certainly possible these could represent an arrhythmia, possibly bradycardia based on her electrocardiogram (which could be either sinus bradycardia or AV block since she has intermittent left bundle branch block). I think we need to follow-up on this, probably with termite helper monitoring but at least monitoring which I can arrange on discharge. #3. Bradycardia: She did have sinus bradycardia on admission, it is not severe but she could have sick sinus syndrome and more significant arrhythmias that we have not seen. She was not on any medications to cause bradycardia that we know of, although her heart rate has tended upward since she has been here. This could contribute to falls on occasion. #4. Left bundle-branch block: The first identification of this that I know of was on her 11/04/2016 electrocardiogram, but it does probably explain her T- wave abnormalities on yesterday's electrocardiogram. This could also indicate that she has transient heart block causing her falls. I would not do anything other than monitoring at the moment, including termite helper monitoring after discharge. I will arrange that when she goes home. Thank you for allowing me to participate in her care.
--- NOTE | 2016-11-05 12:18 | Hospitalist Progress Note ---
Hospitalist Progress Note Date of Service Nov 05, 2016. (Shaila Villa ., PA-C) Subjective Pt evaluation today including: conversation w/ patient, conversation w/ family (daughter- at bedside), physical exam, chart review, lab review, review of studies, review of inpatient medication list Voiding: garcia catheter in place Patient states she is feeling well. Pain 0/10. She is currently eating lunch with the help of her daughter at bedside. +flatus, unsure of BM- daughter thinks she may have had BM yesterday- none documented. Patient denies any fever , chills, sweats, lightheadedness, dizziness, vision changes, CP, palpitations, edema, SOB, wheezing, cough, abdominal pain, nausea, vomiting, diarrhea, urinary symptoms, melena, numbness/tingling, weakness, muscle/joint pain, anxiety/depression, active bleeding, or new skin discoloration/changes. Daughter states patient is doing well. She worked w/ PT/OT and complained of severe pain, but that has since resolved. (Shaila Villa ., PA-C) Medications Current Inpatient Medications Medications (Trade) Dose Ordered Sig/Heri Route Start Time Stop Time Status Last Admin Dose Admin Acetaminophen (Tylenol Tab) 650 mg Q4H PRN PO 11/03/16 13:00 12/03/16 12:59 11/04/16 23:42 650 MG Polyethylene (Miralax Powder Packet) 17 gm DAILY PRN PO 11/03/16 13:00 12/03/16 12:59 Amlodipine Besylate (Norvasc Tab) 5 mg DAILY PO 11/04/16 09:00 12/04/16 08:59 11/04/16 19:50 5 MG Budesonide (Entocort EC Cap) 3 mg QAM PO 11/04/16 09:00 12/04/16 08:59 11/05/16 07:41 3 MG Diphenhydramine HCl (Benadryl Cap) 25 mg HS PO 11/03/16 21:00 12/03/16 20:59 11/04/16 20:32 25 MG Escitalopram Oxalate (Lexapro Tab) 5 mg QAM PO 11/04/16 09:00 12/04/16 08:59 11/05/16 07:42 5 MG Loratadine (Claritin Tab) 10 mg QAM PO 11/04/16 09:00 12/04/16 08:59 11/05/16 07:42 10 MG Lorazepam (Ativan Tab) 0.5 mg DAILY PRN PO 11/03/16 13:00 12/03/16 12:59 Senna (Senokot Tab) 8.6 mg DAILY PO 11/04/16 09:00 12/04/16 08:59 11/05/16 07:42 8.6 MG Calcium/Vitamin D (Caltrate Plus Tab) 1 tab BID PO 11/03/16 21:00 12/03/16 20:59 11/05/16 07:45 1 TAB Donepezil HCl (Aricept Tab) 10 mg HS PO 11/03/16 21:00 12/03/16 20:59 11/04/16 20:32 10 MG Miscellaneous Information (Order Awaiting Action) 1 ea QS N/A 11/03/16 16:00 12/03/16 15:59 Lactobacillus Acidophilus (Floranex Tab) 4 tab BID@0800,1700 PO 11/03/16 17:00 12/03/16 16:59 11/05/16 07:42 4 TAB Morphine Sulfate (MoRPHine SULFATE INJ) 4 mg Q2H PRN IV 11/03/16 13:00 11/17/16 12:59 11/04/16 19:14 4 MG Sodium Chloride 1,000 ml @ 100 mls/hr Q10H IV 11/03/16 13:00 12/03/16 12:59 11/05/16 05:27 100 MLS/HR Miscellaneous Medication (No Nsaids) 1 ea UD N/A 11/04/16 16:45 12/04/16 16:44 Oxycodone HCl (Roxicodone Immediate Rel Tab) 1 TABLET FOR PAIN RATING... Q4H PRN PO 11/04/16 16:45 11/18/16 16:44 11/05/16 07:39 10 MG Magnesium Hydroxide (Milk Of Magnesia Susp) 30 ml Q6H PRN PO 11/04/16 16:45 12/04/16 16:44 Docusate Sodium (coLACE CAP) 100 mg BID PO 11/04/16 21:00 12/04/16 20:59 11/05/16 07:41 100 MG Al Hydrox/Mg Hydrox/Simethicone (Maalox Max Susp) 15 ml Q4H PRN PO 11/04/16 16:45 12/04/16 16:44 Multivitamins (Multivitamin Tab) 1 tab QAM PO 11/05/16 09:00 12/05/16 08:59 11/05/16 07:40 1 TAB Ondansetron HCl (Zofran Inj) 4 mg Q6H PRN IV 11/04/16 16:45 12/04/16 16:44 Metoclopramide HCl (Reglan Inj) 10 mg Q6H PRN IV 11/04/16 16:45 12/04/16 16:44 Ferrous Gluconate (Ferrous Gluconate Tab) 324 mg TIDM PO 11/04/16 18:00 12/04/16 17:59 11/05/16 07:41 324 MG Pantoprazole Sodium (Protonix Tab) 40 mg QAM PO 11/05/16 09:00 12/05/16 08:59 11/05/16 07:41 40 MG Tramadol HCl (Ultram Tab) 1 tablet for pain rating... Q4H PRN PO 11/04/16 16:45 12/04/16 16:44 Aspirin (Ecotrin Tab) 81 mg BID PO 11/04/16 21:00 12/04/16 20:59 11/05/16 07:41 81 MG Vancomycin HCl (Consult) 1 ea UD PRN N/A 11/05/16 08:45 12/05/16 08:44 Vancomycin HCl 1000 mg/Sodium Chloride 270 ml @ 125 mls/hr Q18H IV 11/06/16 02:00 11/10/16 08:59 (Shaila Villa, ADOLPHC) Objective Vital Signs Date Time Temp Pulse Resp B/P (MAP) Pulse Ox O2 Delivery O2 Flow Rate FiO2 11/05/16 11:13 37.2 78 17 117/58 (77) 97 Nasal Cannula 1.0 11/05/16 08:20 81 14 117/58 (77) 97 Nasal Cannula 1.0 11/05/16 08:00 90 Room Air 11/05/16 07:01 37.1 85 21 123/61 (81) 99 Nasal Cannula 2.0 11/05/16 04:00 Nasal Cannula 2.0 11/05/16 03:08 37.3 82 24 117/55 (75) 99 Nasal Cannula 2.0 11/05/16 02:11 37.5 11/05/16 00:25 38.5 11/04/16 23:59 Nasal Cannula 2.0 11/04/16 23:37 38.8 11/04/16 23:00 107 21 140/66 (90) 97 Nasal Cannula 2.0 11/04/16 22:25 37.7 96 22 122/70 (87) 97 Nasal Cannula 2.0 11/04/16 21:25 36.7 91 19 136/69 (91) 98 Nasal Cannula 2.0 11/04/16 20:25 36.9 85 18 129/61 (83) 99 Nasal Cannula 2.0 11/04/16 20:00 Nasal Cannula 2.0 11/04/16 19:16 36.7 78 18 142/66 (91) 99 Nasal Cannula 2.0 11/04/16 18:29 36.9 76 14 150/71 (97) 99 Nasal Cannula 2.0 11/04/16 18:13 79 19 11/04/16 18:13 79 19 98 11/04/16 18:12 148/87 11/04/16 18:08 79 13 11/04/16 18:08 78 13 100 11/04/16 18:07 141/77 11/04/16 18:03 77 17 99 11/04/16 18:03 76 17 11/04/16 18:02 149/73 11/04/16 18:00 37.7 11/04/16 17:59 79 15 11/04/16 17:59 80 15 100 11/04/16 17:57 152/79 11/04/16 17:54 79 19 100 11/04/16 17:54 78 19 11/04/16 17:52 156/70 11/04/16 17:49 75 23 11/04/16 17:49 75 23 100 11/04/16 17:48 99 16 159/87 100 11/04/16 17:48 79 16 11/04/16 17:43 73 16 99 11/04/16 17:43 74 16 11/04/16 17:42 157/84 11/04/16 17:41 76 14 11/04/16 17:41 76 14 161/77 99 11/04/16 17:36 75 14 135/75 100 11/04/16 17:36 75 14 11/04/16 17:31 72 16 100 11/04/16 17:31 72 16 11/04/16 17:27 166/73 11/04/16 17:26 73 18 11/04/16 17:26 76 18 100 11/04/16 17:23 148/87 11/04/16 17:21 71 15 11/04/16 17:21 70 15 11/04/16 17:20 69 19 11/04/16 17:20 82 19 100 11/04/16 17:19 173/65 11/04/16 17:15 66 20 11/04/16 17:15 69 20 100 11/04/16 17:10 65 15 11/04/16 17:10 63 15 100 11/04/16 17:09 70 12 100 11/04/16 17:09 70 12 11/04/16 17:08 161/69 11/04/16 17:05 169/67 11/04/16 17:04 73 19 100 11/04/16 17:04 71 19 11/04/16 16:59 82 15 11/04/16 16:59 67 15 11/04/16 16:57 163/68 11/04/16 16:54 66 13 11/04/16 16:54 77 13 11/04/16 16:49 117 18 98 11/04/16 16:49 79 18 11/04/16 16:46 123/94 11/04/16 16:44 36.2 78 18 123/94 97 Nasal Cannula 4 11/04/16 16:00 Room Air 11/04/16 13:40 36.8 74 21 138/64 94 11/04/16 13:03 37.3 73 16 135/59 93 11/04/16 12:30 37.2 72 18 138/58 94 11/04/16 12:20 37.3 76 20 120/78 94 11/04/16 12:12 37.0 73 16 136/61 92 11/04/16 12:00 97 Room Air (Shaila Villa, PA-C) Physical Exam General Appearance: no apparent distress Eyes: normal inspection, PERRL ENT: hearing grossly normal Neck: supple Respiratory/Chest: lungs clear, no respiratory distress, no accessory muscle use Cardiovascular: regular rate, rhythm Abdomen: normal bowel sounds, non tender, soft Extremities: no pedal edema, + pertinent finding (TEDs on; LLE in immobilizer brace) Neurologic/Psychiatric: alert, normal mood/affect Skin: normal color, warm/dry, no rash (Shaila Villa ., PA-C) Laboratory Results Last 24 Hours Test 11/04/16 19:07 11/05/16 05:25 Bedside Glucose 132 mg/dl White Blood Count 13.53 K/uL Red Blood Count 2.95 M/uL Hemoglobin 8.5 g/dL Hematocrit 25.6 % Mean Corpuscular Volume 86.8 fL Mean Corpuscular Hemoglobin 28.8 pg Mean Corpuscular Hemoglobin Concent 33.2 g/dl RDW Standard Deviation 45.8 fL RDW Coefficient of Variation 14.4 % Platelet Count 100 K/uL Mean Platelet Volume 9.9 fL Sodium Level 146 mmol/L Potassium Level 4.1 mmol/L Chloride Level 111 mmol/L Carbon Dioxide Level 27 mmol/L Anion Gap 8.0 mmol/L Blood Urea Nitrogen 17 mg/dl Creatinine 0.77 mg/dl Est Creatinine Clear Calc Drug Dose 50.6 ml/min Estimated GFR () 82.8 Estimated GFR (Non- 71.4 BUN/Creatinine Ratio 22.1 Random Glucose 152 mg/dl Calcium Level 8.1 mg/dl (Shaila Villa ., PA-C) Assessment and Plan 81 y/o female with a history of Alzheimer's disease, lung cancer s/p lung resection, HTN, anxiety and depression, and frontal meningioma who presented to the ED on 11/03 from [facility] with left hip and knee pain following a fall. Head CT shows slight increase in size of known frontal meningioma, otherwise no acute findings. CXR no acute disease. Hip and knee x-rays show angulated fracture of left distal femur. EKG shows new T wave inversions in inferior and anterior leads. Cardiac enzymes negative. UA positive for UTI, labs otherwise grossly unremarkable. Left osteoporotic femur fracture, secondary to ground level fall- cause unknown , ?cardiac vs mechanical s/p open reduction and internal fixation with retrograde intramedullary nail, left periprosthetic femur fracture and polyethylene exchange on 11/[address] Velasquez: - Head CT- unremarkable for acute intracranial abnormalities - CXR- no acute cardiopulmonary process - Consult orthopedics, appreciate recommendations -- Type and screen/cross w/ transfusion ordered for 2 u pRBCs on 11/04- H&H stable postop, continue to follow CBC - Morphine 4 mg IV q2h PRN, Oxycodone 1 tab q4 hrs, and Tylenol 650 mg q4 hrs PRN for pain management - PT/OT per ortho - IVF with NSS 100 cc/hr Osteoporosis: - Continue Caltrate 1 tab BID - Check Vitamin D level tomorrow AM - Patient will need to follow-up outpatient for continued osteoporosis management New T wave inversions noted on EKG: - Admit to telemetry for cardiac monitoring- no acute events, sinus 70-80s, episode of sinus tach w/ rates up to 110 overnight - Trend cardiac enzymes- negative x3 - Follow EKG QAM and PRN w/ CP -- Noted LBBB on 11/04 EKG - ECHO 11/03: * Normal biventricular systolic function. * Mild concentric left ventricular hypertrophy. * Left ventricular diastolic dysfunction. * Normal chamber dimensions. * No significant valvular abnormalities noted. * No cardiac source of emboli noted. * Aortic valve sclerosis mild, without significant aortic valvular stenosis. - Cardiology consulted, appreciate recommendations -- Dr. Herman setting up long-term monitoring after d/c to asses for transient heart block UTI POA: - UCx- growing gram + cocci- sensitives pending - Aztreonam 1 gm IV q8h (started on 11/03)- IV Vancomycin preop on 11/04- will continue this postop and d/c Aztreonam Alzheimer's disease- follows w/ Dr. Amado: Continue Aricept 10 mg HS and Namenda 21 mg daily Frontal meningioma- noted on Mar [address]- follows w/ Dr. 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 Discussed with ADRIÁN Villa and agree with findings and plan as documented in the note. Any exceptions or clarifications are listed here: Doing well today, some confusion intermittently. Nothing significant on tele. Vitals and tele reviewed with Cardiology NAD, alert and awake RRR no mgr CTAB breathing unlabored, no wcr Abd soft NT Left leg dressing in place 81 to female with left femur fracture with osteoporotic fracture from fall from less than standing height, LBBB and ECG changes with h/o recurrent syncope and presyncope. Hgb stable in 8s despite 2 units PRBCs -continue tele after surgery to look for blocks -appreciate Ortho management of fracture -follow Hgb and transfuse as needed to keep hgb > 7-8 -stop NS for IVFs given hypernatremia -will need treatment for osteoporosis as outpt, check Vit D here -DVT proph as per Ortho Documented By: Laura Winston (Laura Winston MD)
--- NOTE | 2016-11-05 12:25 | Orthopedic Progress Note ---
Orthopedic Progress Note Date of Service Nov 05, 2016. Subjective Post OP Day: 1 Reports: feeling well, pain controlled w PO medications, Denies: complaints, chest pain, SOB, nausea / vomiting, light headedness, calf pain Additional Notes: Patient was pleasantly confused on exam today. Her son and his were there today on exam. Only question asked was how long till she would walk on her leg, she was told it would be about 6 weeks before she would be able to start bearing weight on it. Objective calves soft nontender, N/V intact, capillary refill less than 2 sec., dressing C /D/I, A&O x3, toes mobile Date Time Temp Pulse Resp B/P (MAP) Pulse Ox O2 Delivery O2 Flow Rate FiO2 11/05/16 11:13 37.2 78 17 117/58 (77) 97 Nasal Cannula 1.0 11/05/16 08:20 81 14 117/58 (77) 97 Nasal Cannula 1.0 11/05/16 08:00 90 Room Air 11/05/16 07:01 37.1 85 21 123/61 (81) 99 Nasal Cannula 2.0 11/05/16 04:00 Nasal Cannula 2.0 11/05/16 03:08 37.3 82 24 117/55 (75) 99 Nasal Cannula 2.0 11/05/16 02:11 37.5 11/05/16 00:25 38.5 11/04/16 23:59 Nasal Cannula 2.0 11/04/16 23:37 38.8 11/04/16 23:00 107 21 140/66 (90) 97 Nasal Cannula 2.0 11/04/16 22:25 37.7 96 22 122/70 (87) 97 Nasal Cannula 2.0 11/04/16 21:25 36.7 91 19 136/69 (91) 98 Nasal Cannula 2.0 11/04/16 20:25 36.9 85 18 129/61 (83) 99 Nasal Cannula 2.0 11/04/16 20:00 Nasal Cannula 2.0 11/04/16 19:16 36.7 78 18 142/66 (91) 99 Nasal Cannula 2.0 11/04/16 18:29 36.9 76 14 150/71 (97) 99 Nasal Cannula 2.0 11/04/16 18:13 79 19 11/04/16 18:13 79 19 98 11/04/16 18:12 148/87 11/04/16 18:08 79 13 11/04/16 18:08 78 13 100 11/04/16 18:07 141/77 11/04/16 18:03 77 17 99 17 18:03 76 17 11/04/16 18:02 149/73 11/04/16 18:00 37.7 11/04/16 17:59 79 15 11/04/16 17:59 80 15 100 11/04/16 17:57 152/79 11/04/16 17:54 79 19 100 11/04/16 17:54 78 19 11/04/16 17:52 156/70 11/04/16 17:49 75 23 11/04/16 17:49 75 23 100 11/04/16 17:48 99 16 159/87 100 11/04/16 17:48 79 16 11/04/16 17:43 73 16 99 11/04/16 17:43 74 16 11/04/16 17:42 157/84 11/04/16 17:41 76 14 11/04/16 17:41 76 14 161/77 99 11/04/16 17:36 75 14 135/75 100 11/04/16 17:36 75 14 11/04/16 17:31 72 16 100 11/04/16 17:31 72 16 11/04/16 17:27 166/73 11/04/16 17:26 73 18 11/04/16 17:26 76 18 100 11/04/16 17:23 148/87 11/04/16 17:21 71 15 11/04/16 17:21 70 15 17 17:20 69 19 11/04/16 17:20 82 19 100 17 17:19 173/65 17 17:15 66 20 17 17:15 69 20 100 17 17:10 65 15 11/04/16 17:10 63 15 100 17 17:09 70 12 100 11/04/16 17:09 70 12 17 17:08 161/69 17 17:05 169/67 11/04/16 17:04 73 19 100 11/04/16 17:04 71 19 11/04/16 16:59 82 15 11/04/16 16:59 67 15 11/04/16 16:57 163/68 11/04/16 16:54 66 13 11/04/16 16:54 77 13 11/04/16 16:49 117 18 98 11/04/16 16:49 79 18 11/04/16 16:46 123/94 11/04/16 16:44 36.2 78 18 123/94 97 Nasal Cannula 4 11/04/16 16:00 Room Air 11/04/16 13:40 36.8 74 21 138/64 94 11/04/16 13:03 37.3 73 16 135/59 93 11/04/16 12:30 37.2 72 18 138/58 94 11/04/16 12:20 37.3 76 20 120/78 94 Laboratory Results 24 Hours: Test 11/05/16 05:25 Hematocrit 25.6 % Hemoglobin 8.5 g/dL Assessment & Plan Assessment: POD #1 Left retrograde nail in femur Plan: Patient is doing well and feels well after the surgery. She denies any pain at the time of examination. Continue ASA 81mg BID for DVT Prophylaxis NWB LLE Inhouse Planning Pain Management: Ultram, Oxy IR DVT Prophylaxis: ASA (81mg BID) Discharge Planning Discharge Planning: uncertain
[2016-11-05] MEDS: AMLODIPINE BESYLATE 5 MG TAB PO SCH (12:38)
--- NOTE | 2016-11-05 13:26 | Pharmacy Progress Note ---
Pharmacy Abx Initial Consult Date of Service Nov 05, 2016. Pharmacy Dosing Scope Date of Consult: 11/05/16 Consultation requested by: Shaila Villa PA-C Pharmacy is consulted to initiate Vancomycin IV dosing therapy for an uncomplicated UTI, order appropriate labs and adjust drug dose/frequency. Subjective The patient is a 81 year old female admitted on Nov 03, 2016 at 13:50. Objective Height (Feet): 5 Height (Inches): 2.00 Weight (Kilograms): 69.700 Vital Signs (Past 12Hrs) Vital Signs Past 12 Hours Date Time Temp Pulse Resp B/P (MAP) Pulse Ox O2 Delivery O2 Flow Rate FiO2 11/05/16 11:13 37.2 78 17 117/58 (77) 97 Nasal Cannula 1.0 11/05/16 08:20 81 14 117/58 (77) 97 Nasal Cannula 1.0 11/05/16 08:00 90 Room Air 11/05/16 07:01 37.1 85 21 123/61 (81) 99 Nasal Cannula 2.0 11/05/16 04:00 Nasal Cannula 2.0 11/05/16 03:08 37.3 82 24 117/55 (75) 99 Nasal Cannula 2.0 11/05/16 02:11 37.5 Lab Results (24Hrs) Laboratory Tests (24 Hours) Test 11/05/16 05:25 White Blood Count 13.53 K/uL (4.8-10.8) H Micro Results Date/Time Source Procedure Growth Status 11/05/16 01:06 Blood Blood Culture Pending Received 11/05/16 01:05 Blood Blood Culture Pending Received 11/03/16 10:10 Urine,Catheterized Urine Culture - Preliminary Gram Positive Cocci Resulted Risk Factors for Resistance * Resident in a shelter or extended-care facility Assessment & Plan Assessment 81 year old female admitted on 11/03/16. Plan Vancomycin for treatment of uncomplicated UTI Vancomycin IV * Loading dose: 1750 mg (25 mg/kg) * Maintenance dose: 1000 mg IV (15 mg/kg) every 18 hours * Estimated p'kinetic levels: ke= 0.0464/hr, t1/2= 15 hrs * Goal trough level for uncomplicated UTI : 15 to 20 mcg/mL * Trough level ordered for 11/08/16 ~30 minutes before the 0800 dose. Pharmacy will continue to follow and will adjust dose/frequency as necessary. Thank you.
[2016-11-05] MEDS: TRAMADOL HCL 50 MG TAB PO PRN (15:20)
[2016-11-05] MEDS: DONEPEZIL HCL 10 MG TAB PO SCH (19:54)
[2016-11-05] MEDS: ACETAMINOPHEN 325 MG TAB PO PRN (20:55)
[2016-11-06] VITALS (19 sets, daily range): BP systolic 126–158; BP diastolic 48–82; PULSE 75–98; TEMP 36.7–37.8; O2SAT 90–100
[2016-11-06] MEDS: VANCOMYCIN INJ 1,000 MG in SODIUM CHLORIDE 0.9% 250ML 250 ML IV SCH ×2 (02:26→20:06)
[2016-11-06] MEDS: ACETAMINOPHEN 325 MG TAB PO PRN ×3 (05:23→20:31)
[2016-11-06 06:16] LABS: HEMATOCRIT 21.7 % (37-47); MEAN CELL VOLUME 87.5 fL (80-100); MEAN CORPUSCULAR HGB CONC 33.2 g/dl (32-36); RED BLOOD COUNT 2.48 M/uL (4.2-5.4); WHITE BLOOD COUNT 10.57 K/uL (4.8-10.8)
[2016-11-06 06:43] LABS: MEAN PLATELET VOLUME 10.4 fL (7.4-10.4); PLATELET COUNT 86 K/uL (130-400)
[2016-11-06 06:44] LABS: PLT ESTIMATE DECREASED
[2016-11-06 06:50] LABS: BUN/CREATININE RATIO 21.8 (10-20); CALCIUM 8.1 mg/dl (8.5-10.1); CREATININE 0.62 mg/dl (0.60-1.20); POTASSIUM 3.3 mmol/L (3.5-5.1)
[2016-11-06] MEDS ORDERED: POTASSIUM CHLORIDE 10 MEQ TABCR PO STA (07:16)
[2016-11-06] MEDS: FERROUS GLUCONATE 324 MG TAB PO SCH ×3 (08:53→12:47)
[2016-11-06] MEDS: NAMENDA XR - ORDER AWAITING ACTION SCH ×2 (08:57→16:00)
[2016-11-06] MEDS: LACTOBACILLUS ACIDOPHILUS (FLORANEX) TAB PO SCH ×2 (08:57→16:28)
[2016-11-06] MEDS: ASPIRIN 81 MG ECTAB PO SCH ×2 (08:58→20:13)
[2016-11-06] MEDS: LORATADINE 10 MG TAB PO SCH (08:58)
[2016-11-06] MEDS: CALCIUM 600MG + VIT D 400 IU TAB PO SCH ×2 (08:58→20:13)
[2016-11-06] MEDS: BUDESONIDE EC 3 MG CAP PO SCH (08:59)
[2016-11-06] MEDS: ESCITALOPRAM OXALATE 10 MG TAB PO SCH (08:59)
[2016-11-06] MEDS: MULTIVITAMIN TAB PO SCH (09:00)
[2016-11-06] MEDS: PANTOprazole SOD 40 MG TAB PO SCH (09:00)
[2016-11-06] MEDS: SENNA 8.6 MG TAB PO SCH (09:00)
[2016-11-06] MEDS: TRAMADOL HCL 50 MG TAB PO PRN ×2 (09:18→16:30)
[2016-11-06] MEDS: DOCUSATE SODIUM 100 MG CAP PO SCH ×2 (09:40→20:13)
[2016-11-06] MEDS: AMLODIPINE BESYLATE 5 MG TAB PO SCH (09:40)
--- NOTE | 2016-11-06 12:08 | Orthopedic Progress Note ---
Orthopedic Progress Note Date of Service Nov 06, 2016. Subjective Post OP Day: 2 Additional Notes: HGB 7.2 Objective calves soft nontender, N/V intact, capillary refill less than 2 sec., dressing C /D/I, toes mobile DEMENTIA Date Time Temp Pulse Resp B/P (MAP) Pulse Ox O2 Delivery O2 Flow Rate FiO2 11/06/16 10:52 37.0 88 17 138/72 98 2.0 11/06/16 09:52 36.8 75 16 140/62 98 2.0 11/06/16 09:36 37.0 77 17 138/66 98 2.0 11/06/16 08:00 95 Nasal Cannula 2.0 11/06/16 07:46 36.8 80 9 126/56 (79) 95 Nasal Cannula 2.0 11/06/16 05:24 37.5 11/06/16 04:00 Nasal Cannula 1.0 11/06/16 03:45 37.2 85 18 127/48 (74) 99 Nasal Cannula 1.0 11/06/16 00:11 Nasal Cannula 1.0 11/05/16 23:35 37.1 76 16 123/52 (75) 96 Nasal Cannula 1.0 11/05/16 22:05 37.6 11/05/16 21:28 38.3 11/05/16 20:56 39.0 11/05/16 20:00 Nasal Cannula 1.0 11/05/16 19:19 99 18 127/65 (85) 91 Nasal Cannula 1.0 11/05/16 16:00 Nasal Cannula 1.0 11/05/16 15:54 37.5 81 16 135/57 (83) 96 Nasal Cannula 1.0 Laboratory Results 24 Hours: Test 11/06/16 05:30 Hematocrit 21.7 % Hemoglobin 7.2 g/dL Assessment & Plan Assessment: POD #2 Left retrograde nail in femur POST OP ANEMIA Plan: Patient is doing well and feels well after the surgery. She denies any pain at the time of examination. Continue ASA 81mg BID for DVT Prophylaxis NWB LLE TRANSFUSING PER MEDICINE DISPOSITION- HS WHEN STABLE. Inhouse Planning Pain Management: Ultram, Oxy IR DVT Prophylaxis: ASA (81mg BID) Discharge Planning Discharge Planning: uncertain
--- NOTE | 2016-11-06 13:54 | Hospitalist Progress Note ---
Hospitalist Progress Note Date of Service Nov 06, 2016. Subjective Pt evaluation today including: conversation w/ patient, conversation w/ family PO Intake: jonnie reg diet Voiding: garcia catheter in place Pt had low hgb this AM, getting PRBC transfusion. Pain controlled. Denies CP or SOb but is still requiring oxygen Abdomen: + constipation All Other Systems: Reviewed and Negative Objective Vital Signs Date Time Temp Pulse Resp B/P (MAP) Pulse Ox O2 Delivery O2 Flow Rate FiO2 11/06/16 12:46 37.2 84 20 145/82 90 11/06/16 12:00 97 Nasal Cannula 2.0 11/06/16 11:52 37.2 83 17 141/67 91 11/06/16 10:52 37.0 88 17 138/72 98 2.0 11/06/16 09:52 36.8 75 16 140/62 98 2.0 11/06/16 09:36 37.0 77 17 138/66 98 2.0 11/06/16 08:00 95 Nasal Cannula 2.0 11/06/16 07:46 36.8 80 9 126/56 (79) 95 Nasal Cannula 2.0 11/06/16 05:24 37.5 11/06/16 04:00 Nasal Cannula 1.0 11/06/16 03:45 37.2 85 18 127/48 (74) 99 Nasal Cannula 1.0 11/06/16 00:11 Nasal Cannula 1.0 11/05/16 23:35 37.1 76 16 123/52 (75) 96 Nasal Cannula 1.0 11/05/16 22:05 37.6 11/05/16 21:28 38.3 11/05/16 20:56 39.0 11/05/16 20:00 Nasal Cannula 1.0 11/05/16 19:19 99 18 127/65 (85) 91 Nasal Cannula 1.0 11/05/16 16:00 Nasal Cannula 1.0 11/05/16 15:54 37.5 81 16 135/57 (83) 96 Nasal Cannula 1.0 Physical Exam General Appearance: WD/WN, no apparent distress Eyes: normal inspection, sclerae normal ENT: hearing grossly normal Neck: trachea midline Respiratory/Chest: lungs clear, normal breath sounds, no respiratory distress, no accessory muscle use Cardiovascular: regular rate, rhythm, no murmur, + pertinent finding (1+ nonpitting edema right hand and left foot) Abdomen: normal bowel sounds, non tender, soft Extremities: + pertinent finding (left leg in immobilizer) Neurologic/Psychiatric: alert, normal mood/affect, + disoriented (thinks she is at home) Skin: normal color, warm/dry, no rash Laboratory Results Last 24 Hours Test 11/05/16 16:35 11/05/16 20:26 11/06/16 05:30 11/06/16 06:31 Bedside Glucose 167 mg/dl 155 mg/dl 139 mg/dl White Blood Count 10.57 K/uL Red Blood Count 2.48 M/uL Hemoglobin 7.2 g/dL Hematocrit 21.7 % Mean Corpuscular Volume 87.5 fL Mean Corpuscular Hemoglobin 29.0 pg Mean Corpuscular Hemoglobin Concent 33.2 g/dl RDW Standard Deviation 45.4 fL RDW Coefficient of Variation 14.1 % Platelet Count 86 K/uL Mean Platelet Volume 10.4 fL Platelet Estimate DECREASED Sodium Level 143 mmol/L Potassium Level 3.3 mmol/L Chloride Level 108 mmol/L Carbon Dioxide Level 29 mmol/L Anion Gap 6.0 mmol/L Blood Urea Nitrogen 14 mg/dl Creatinine 0.62 mg/dl Est Creatinine Clear Calc Drug Dose 63.0 ml/min Estimated GFR () 96.6 Estimated GFR (Non- 83.4 BUN/Creatinine Ratio 21.8 Random Glucose 125 mg/dl Calcium Level 8.1 mg/dl 25-Hydroxy Vitamin D Total 14.2 ng/ml Test 11/06/16 10:46 Bedside Glucose 193 mg/dl Assessment and Plan 81 y/o female with a history of Alzheimer's disease, lung cancer s/p lung resection, HTN, anxiety and depression, and frontal meningioma who presented to the ED on 11/03 from [facility] with left hip and knee pain following a fall. Head CT shows slight increase in size of known frontal meningioma, otherwise no acute findings. CXR no acute disease. Hip and knee x-rays show angulated fracture of left distal femur. EKG shows new T wave inversions in inferior and anterior leads. Cardiac enzymes negative. UA positive for UTI, labs otherwise grossly unremarkable. Left osteoporotic femur fracture, secondary to ground level fall- cause unknown , has had multiple falls and syncopal episodes ?cardiac vs mechanical. S/p open reduction and internal fixation with retrograde intramedullary nail, left periprosthetic femur fracture and polyethylene exchange on 11/[address] Velasquez. - Head CT- unremarkable for acute intracranial abnormalities - CXR- no acute cardiopulmonary process - Consult orthopedics, appreciate recommendations -transfuse for post-op anemia to keep Hgb >7-8 - pain management - PT/OT per ortho, accepted to [facility] when ready -DVT proph with ASA bid Acute Blood loss anemia, thrombocytopenia-Hgb 12 on admisison--> 8.4 preop from fracture, s/p 2 units PRBCs 11/04. Plts low at 82k Hgb today low at 7.2 -transfuse 2 units PRBCs today, keep Hgb > 7-8 -watch plts and hold ASA if drop any further Osteoporosis, Vit D deficiency- Vit D level 14.2 here - Continue Caltrate 1 tab BID and add Vit D2 24374 units once weekly - Patient will need to follow-up outpatient for continued osteoporosis management New T wave inversions noted on EKG, LBBB, Chronic diastolic CHF. ECHO without WMA, trop neg x 3. Cardiology suspects could have heart block as cause of recurrent syncope and falls. 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 Amado: -Continue Aricept 10 mg HS - Namenda XR 21 mg daily is not available here--> I asked son to bring it in from home -supportive care Frontal meningioma- noted on Mar [address]- follows w/ Dr. Amado: - Head CT 11/04- Slight interval increase in the size of the 3 cm right frontal extra-axial mass, likely representing a meningioma -- November [address]- 2.8 cm mass - Seen neurology July 2016- 6 month f/u recommended --> see Neuro in 01/2017 HTN- STABLE: - Hypotensive at admission w/ BPs 90/50s- RESOLVED: Treated w/ IVF and HCTZ 12.5 mg held - Continue Amlodipine 5 mg daily -continue to hold HCTZ for now Anxiety and depression: Lexapro 5 mg daily and Ativan 0.5 mg daily PRN Colitis: Pt and son not able to give me further history on this except pt thinks she has been on steroids for many years - Continue Budesonide 3 mg daily H/O Lung CA- 19 mm 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
[2016-11-06] MEDS ORDERED: ERGOCALCIFEROL 50,000 INTER.UNIT CAP PO SCH (15:00)
[2016-11-06] MEDS: POLYETHYLENE (MIRALAX) 17 GM PACK PO PRN (16:27)
[2016-11-06] MEDS: DONEPEZIL HCL 10 MG TAB PO SCH (20:13)
[2016-11-07 03:15] VITALS: BP 125/76; PULSE 72; TEMP 36.9; O2SAT 98
[2016-11-07 06:42] LABS: CREATININE 0.59 mg/dl (0.60-1.20)
[2016-11-07 07:28] LABS: HEMATOCRIT 27.9 % (37-47); MEAN CORPUSCULAR HEMOGLOBIN 27.7 pg (25-34); RED BLOOD COUNT 3.32 M/uL (4.2-5.4); WHITE BLOOD COUNT 8.98 K/uL (4.8-10.8)
[2016-11-07 07:34] LABS: BASO % 0.3 %; BASO ABS # 0.03 K/uL (0-0.2); COMPLETE YES; LYMPH % 21.7 %; LYMPH ABS # 1.95 K/uL (1.2-3.4); MEAN PLATELET VOLUME 10.2 fL (7.4-10.4); MONO % 8.2 %; NEUT % 64.8 %; PLATELET COUNT 91 K/uL (130-400)
[2016-11-07 07:36] VITALS: BP 144/81; PULSE 73; TEMP 37; O2SAT 98
[2016-11-07 07:40] LABS: BUN/CREATININE RATIO 20.3 (10-20); POTASSIUM 3.8 mmol/L (3.5-5.1)
[2016-11-07] MEDS: FERROUS GLUCONATE 324 MG TAB PO SCH ×3 (07:53→16:50)
[2016-11-07] MEDS: MEMANTINE HCL 21 MG PO SCH (08:20)
[2016-11-07] MEDS: LACTOBACILLUS ACIDOPHILUS (FLORANEX) TAB PO SCH ×2 (08:21→16:51)
[2016-11-07] MEDS: SENNA 8.6 MG TAB PO SCH (08:21)
[2016-11-07] MEDS: LORATADINE 10 MG TAB PO SCH (08:21)
[2016-11-07] MEDS: ESCITALOPRAM OXALATE 10 MG TAB PO SCH (08:21)
[2016-11-07] MEDS: DOCUSATE SODIUM 100 MG CAP PO SCH ×2 (08:22→21:05)
[2016-11-07] MEDS: CALCIUM 600MG + VIT D 400 IU TAB PO SCH ×2 (08:22→21:04)
[2016-11-07] MEDS: PANTOprazole SOD 40 MG TAB PO SCH (08:22)
[2016-11-07] MEDS: MULTIVITAMIN TAB PO SCH (08:22)
[2016-11-07] MEDS: ASPIRIN 81 MG ECTAB PO SCH ×2 (08:23→21:05)
[2016-11-07] MEDS: AMLODIPINE BESYLATE 5 MG TAB PO SCH (08:23)
[2016-11-07] MEDS: BUDESONIDE EC 3 MG CAP PO SCH (08:23)
--- NOTE | 2016-11-07 08:57 | Progress Note ---
Orthopedic SOAP Note Subjective Date of Service: Nov 07, 2016. Additional Notes: no c/o awake alert eating breakfast Problem List Medical Problems: (1) Closed head injury Status: Acute (2) Hypertension Status: Acute (3) Left femoral shaft fracture Status: Acute (4) Left knee sprain Status: Acute (5) Skin tear Status: Acute (6) Syncope and collapse Status: Acute Objective N/V intact, dressing C/D/I brace in p;yuan some difficulty df foot due to pain ehl function good foot ecchymotic Date Time Temp Pulse Resp B/P (MAP) Pulse Ox O2 Delivery O2 Flow Rate FiO2 11/07/16 07:36 37.0 73 20 144/81 (102) 98 Nasal Cannula 2.0 11/07/16 04:00 Nasal Cannula 2.0 11/07/16 03:15 36.9 72 20 125/76 (92) 98 Nasal Cannula 2.0 Humidified Air 11/07/16 00:00 Nasal Cannula 2.0 11/06/16 23:50 37.2 78 18 137/70 (92) 90 Nasal Cannula 2.0 Humidified Air 11/06/16 20:00 Nasal Cannula 2.0 11/06/16 19:48 37.8 91 18 150/77 (101) 98 Nasal Cannula 2.0 Humidified Oxygen 11/06/16 16:30 36.7 11/06/16 16:00 95 Nasal Cannula 2.0 11/06/16 15:33 37.3 85 20 158/79 (105) 97 Nasal Cannula 2.0 11/06/16 15:18 37.2 81 19 155/72 98 11/06/16 14:51 98 98 11/06/16 14:16 37.3 85 19 149/79 99 2.0 11/06/16 13:16 37.3 88 16 145/68 100 2.0 11/06/16 12:46 37.2 84 20 145/82 90 11/06/16 12:00 97 Nasal Cannula 2.0 11/06/16 11:52 37.2 83 17 141/67 91 11/06/16 10:52 37.0 88 17 138/72 98 2.0 11/06/16 09:52 36.8 75 16 140/62 98 2.0 11/06/16 09:36 37.0 77 17 138/66 98 2.0 Laboratory Results 24 Hours: Test 11/07/16 05:25 White Blood Count 8.98 K/uL Red Blood Count 3.32 M/uL Hemoglobin 9.2 g/dL Hematocrit 27.9 % Mean Corpuscular Volume 84.0 fL Mean Corpuscular Hemoglobin 27.7 pg Mean Corpuscular Hemoglobin Concent 33.0 g/dl Platelet Count 91 K/uL Mean Platelet Volume 10.2 fL Neutrophils (%) (Auto) 64.8 % Lymphocytes (%) (Auto) 21.7 % Monocytes (%) (Auto) 8.2 % Eosinophils (%) (Auto) 4.0 % Basophils (%) (Auto) 0.3 % Neutrophils # (Auto) 5.81 K/uL Lymphocytes # (Auto) 1.95 K/uL Monocytes # (Auto) 0.74 K/uL Eosinophils # (Auto) 0.36 K/uL Basophils # (Auto) 0.03 K/uL Assessment POD #3 Left retrograde nail in femur POST OP ANEMIA improved Plan Patient is doing well and feels well after the surgery. She denies any pain at the time of examination. Continue ASA 81mg BID for DVT Prophylaxis NWB DISPOSITION- HS WHEN STABLE.
[2016-11-07] MEDS ORDERED: MEMANTINE HCL 21 MG PO SCH (09:00)
[2016-11-07 09:11] LABS: CALCIUM 8.1 mg/dl (8.5-10.1)
[2016-11-07 11:43] VITALS: BP 151/64; PULSE 82; TEMP 37.2; O2SAT 96
[2016-11-07] MEDS: ACETAMINOPHEN 325 MG TAB PO PRN (11:48)
[2016-11-07] MEDS: VANCOMYCIN INJ 1,000 MG in SODIUM CHLORIDE 0.9% 250ML 250 ML IV SCH (14:15)
[2016-11-07] MEDS: OXYCODONE HCL IR 5 MG TAB (IMMEDIATE RELEASE) PO PRN (14:16)
[2016-11-07] MEDS ORDERED: POTASSIUM CHLORIDE 10 MEQ TABCR PO STA (14:59)
--- NOTE | 2016-11-07 15:17 | Hospitalist Progress Note ---
Hospitalist Progress Note Date of Service Nov 07, 2016. Subjective Pt evaluation today including: conversation w/ patient, conversation w/ family , physical exam Voiding: garcia catheter in place Pt feeling well, still forgetful at times. Eating and drinking. Pain controlled. was up with PT today All Other Systems: Reviewed and Negative Objective Vital Signs Date Time Temp Pulse Resp B/P (MAP) Pulse Ox O2 Delivery O2 Flow Rate FiO2 11/07/16 12:00 Room Air 11/07/16 11:43 37.2 82 20 151/64 (93) 96 11/07/16 08:00 Room Air 11/07/16 07:36 37.0 73 20 144/81 (102) 98 Nasal Cannula 2.0 11/07/16 04:00 Nasal Cannula 2.0 11/07/16 03:15 36.9 72 20 125/76 (92) 98 Nasal Cannula 2.0 Humidified Air 11/07/16 00:00 Nasal Cannula 2.0 11/06/16 23:50 37.2 78 18 137/70 (92) 90 Nasal Cannula 2.0 Humidified Air 11/06/16 20:00 Nasal Cannula 2.0 11/06/16 19:48 37.8 91 18 150/77 (101) 98 Nasal Cannula 2.0 Humidified Oxygen 11/06/16 16:30 36.7 11/06/16 16:00 95 Nasal Cannula 2.0 11/06/16 15:33 37.3 85 20 158/79 (105) 97 Nasal Cannula 2.0 11/06/16 15:18 37.2 81 19 155/72 98 Physical Exam General Appearance: WD/WN, no apparent distress Eyes: normal inspection, sclerae normal ENT: hearing grossly normal Neck: trachea midline Respiratory/Chest: lungs clear, normal breath sounds, no respiratory distress, no accessory muscle use Cardiovascular: regular rate, rhythm, no gallop, no murmur Abdomen: normal bowel sounds, non tender, soft Extremities: + pertinent finding (left leg in immobilizer, able to move toes, with +edema left foot; right leg no edema, no calf tenderness) Neurologic/Psychiatric: alert, normal mood/affect, + pertinent finding ( oriented to peson and place) Skin: normal color, warm/dry, no rash Laboratory Results Last 24 Hours Test 11/06/16 16:27 11/06/16 20:07 11/07/16 05:25 11/07/16 06:36 Bedside Glucose 148 mg/dl 282 mg/dl 129 mg/dl White Blood Count 8.98 K/uL Red Blood Count 3.32 M/uL Hemoglobin 9.2 g/dL Hematocrit 27.9 % Mean Corpuscular Volume 84.0 fL Mean Corpuscular Hemoglobin 27.7 pg Mean Corpuscular Hemoglobin Concent 33.0 g/dl Platelet Count 91 K/uL Mean Platelet Volume 10.2 fL Neutrophils (%) (Auto) 64.8 % Lymphocytes (%) (Auto) 21.7 % Monocytes (%) (Auto) 8.2 % Eosinophils (%) (Auto) 4.0 % Basophils (%) (Auto) 0.3 % Neutrophils # (Auto) 5.81 K/uL Lymphocytes # (Auto) 1.95 K/uL Monocytes # (Auto) 0.74 K/uL Eosinophils # (Auto) 0.36 K/uL Basophils # (Auto) 0.03 K/uL RDW Standard Deviation 47.6 fL RDW Coefficient of Variation 15.5 % Immature Granulocyte % (Auto) 1.0 % Immature Granulocyte # (Auto) 0.09 K/uL Sodium Level 142 mmol/L Potassium Level 3.8 mmol/L Chloride Level 107 mmol/L Carbon Dioxide Level 28 mmol/L Anion Gap 7.0 mmol/L Blood Urea Nitrogen 12 mg/dl Creatinine 0.59 mg/dl Est Creatinine Clear Calc Drug Dose 68.1 ml/min Estimated GFR () 98.2 Estimated GFR (Non- 84.8 BUN/Creatinine Ratio 20.3 Random Glucose 118 mg/dl Calcium Level 8.1 mg/dl Test 11/07/16 11:43 Bedside Glucose 141 mg/dl Assessment and Plan 81 y/o female with a history of Alzheimer's disease, lung cancer s/p lung resection, HTN, anxiety and depression, and frontal meningioma who presented to the ED on 11/03 from [facility] with left hip and knee pain following a fall. Head CT shows slight increase in size of known frontal meningioma, otherwise no acute findings. CXR no acute disease. Hip and knee x-rays show angulated fracture of left distal femur. EKG shows new T wave inversions in inferior and anterior leads. Cardiac enzymes negative. UA positive for UTI, labs otherwise grossly unremarkable. Left osteoporotic femur fracture, secondary to ground level fall- cause unknown , has had multiple falls and syncopal episodes ?cardiac vs mechanical. S/p open reduction and internal fixation with retrograde intramedullary nail, left periprosthetic femur fracture and polyethylene exchange on 11/[address] Velasquez. Recovering well so far. Pain controlled, working with PT - Head CT- unremarkable for acute intracranial abnormalities - CXR- no acute cardiopulmonary process - Consult orthopedics, appreciate recommendations -transfuse for post-op anemia to keep Hgb >7-8 - pain management - PT/OT per ortho, accepted to [facility] when ready-hopefully Tuesday -DVT proph with ASA bid -dc Garcia Acute Blood loss anemia, thrombocytopenia-Hgb 12 on admisison--> 8.4 preop from fracture, s/p 2 units PRBCs 11/04. Plts were low at 82k Hgbnadir at 7.2, s/p 2 units PRBCs 11/06--> 9.2, plts improved as well No evidence of ongoing bleeding -transfuse to keep Hgb > 7-8 -follow CBC Osteoporosis, Vit D deficiency- Vit D level 14.2 here - Continue Caltrate 1 tab BID and add Vit D2 76142 units once weekly - Patient will need to follow-up outpatient for continued osteoporosis management New T wave inversions noted on EKG, LBBB, Chronic diastolic CHF. ECHO without WMA, trop neg x 3. Cardiology suspects could have heart block as cause of recurrent syncope and falls. 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 Amado: -Continue Aricept 10 mg HS - Namenda XR 21 mg daily is not available here--> I asked son to bring it in from home -supportive care Frontal meningioma- noted on Mar [address]- follows w/ Dr. Amado: - Head CT 11/04- Slight interval increase in the size of the 3 cm right frontal extra-axial mass, likely representing a meningioma -- November [address]- 2.8 cm mass - Seen neurology July 2016- 6 month f/u recommended --> see Neuro in 01/2017 HTN- STABLE: - Hypotensive at admission w/ BPs 90/50s- RESOLVED: Treated w/ IVF and HCTZ 12.5 mg held , now BPs trending back upward - Continue Amlodipine 5 mg daily -restart HCTZ in AM Anxiety and depression: Lexapro 5 mg daily and Ativan 0.5 mg daily PRN Colitis: Pt and son not able to give me further history on this except pt thinks she has been on steroids for many years - Continue Budesonide 3 mg daily H/O Lung CA- 19 mm 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
[2016-11-07 15:27] VITALS: BP 139/68; PULSE 78; TEMP 37.4; O2SAT 92
[2016-11-07] MEDS: POLYETHYLENE (MIRALAX) 17 GM PACK PO PRN (15:48)
[2016-11-07 19:16] VITALS: BP 144/71; PULSE 85; TEMP 37.3; O2SAT 94
[2016-11-07] MEDS: DONEPEZIL HCL 10 MG TAB PO SCH (21:05)
[2016-11-07 23:48] VITALS: BP 153/76; PULSE 83; TEMP 37.6; O2SAT 95
[2016-11-08 03:18] VITALS: BP 144/67; PULSE 83; TEMP 37.4; O2SAT 94
--- NOTE | 2016-11-08 07:06 | Consultant Recommendations ---
Medical Review Specialist Recommendations Date of Service Nov 08, 2016. Medical Review Specialist Recommendations U DISCHARGE INSTRUCTIONS: FEMUR FRACTURE SELF CARE INSTRUCTIONS: A. You are NON-WEIGHT BEARING on your operative lower extremity for at least 6 weeks. B. Wear low heeled shoes with non-slip soles C. Be sure that your floors are free of things that could trip you throw rugs, electrical cords, and small objects. Avoid wet and waxed floors, especially with crutches/walker/cane. D. Try to walk several times a day with rest periods between. E. You may shower 48 hours after surgery and get the incision area wet, but DO NOT soak or submerge incision area in water. (No baths, swimming pools, hot tubs ) F. You may have a large, band-aid like dressing over your incision (Aquacel). This will remain on your incision for 7 days, and then can be removed. You CAN shower with this on. If incision is leaking through the dressing, please call the office . G. Do NOT apply soap or any ointment/lotions directly over incision. H. You may use ice as needed to operative site. SPECIAL CARE INSTRUCTIONS: VERY IMPORTANT TO READ AND REVIEW A. You may be at risk for phlebitis or blood clots. a. Wear surgical stockings (MAYRA hose) for 2 weeks after surgery to improve circulation and reduce swelling. b. Take ASPIRIN 81MG twice daily for 4 weeks or as directed. This is your blood thinner. c. If you are on Coumadin- you will have daily/weekly blood work to monitor your levels. This will be done by either your family physician/ nurse practitioner (if you are on Coumadin chronically) versus your orthopedic surgeon. Expect a phone call the day of or the day after your blood work is drawn to adjust your dose accordingly. B. There are a few signs you need to watch for after you are home. Call [facility] at [phone] if you experience any of the following: a. If you have a temperature of 101 degrees or higher. b. Sudden increase in pain in your hip not relieved by rest or pain medication. c. Any fluid or drainage from the incision; redness of the incision. d. Shortness of breath or chest pain. B. Please call [facility] at [phone] if you have any questions or concerns about your operation or recovery. C. Call your physician if: a. Temperature is greater than 101 degrees (F). b. Pain is not relieved by prescribed pain medications. c. Increase drainage or redness from incision. d. Unanswered questions or concerns. D. Pain Medication: a. You will be prescribed pain medication upon discharge that should last till your first post-operative appointment. b. If you experience nausea and/or skin rash, discontinue this medication and contact our office for an alternative medication. c. Caution- narcotic pain medication can cause constipation. FOLLOW UP VISIT: Please call [facility] at [phone] to schedule a follow up appointment 10-14 days from the date of your surgery date.
--- NOTE | 2016-11-08 07:09 | Orthopedic Progress Note ---
Orthopedic Progress Note Date of Service Nov 08, 2016. Subjective Post OP Day: 4 Reports: feeling well, pain controlled w PO medications, Denies: complaints, chest pain, SOB, nausea / vomiting, light headedness, calf pain Additional Notes: Patient is doing well this morning with no complaints. Objective calves soft nontender, capillary refill less than 2 sec., incision C/D/I, A&O x3 , toes mobile Patient is pleasantly confused this morning. Her JERMAIN wrap was changed this morning as she soiled it last night while having a bowel movement. Her incision was C/D/I. She had mobility at the ankles and toes with normal sensation. Date Time Temp Pulse Resp B/P (MAP) Pulse Ox O2 Delivery O2 Flow Rate FiO2 11/08/16 04:00 Nasal Cannula 2.0 11/08/16 03:18 37.4 83 20 144/67 (92) 94 Room Air 11/08/16 00:00 Nasal Cannula 2.0 11/07/16 23:48 37.6 83 20 153/76 (101) 95 Room Air 11/07/16 20:00 Room Air 11/07/16 19:16 37.3 85 18 144/71 (95) 94 Nasal Cannula 2.0 Humidified Oxygen 11/07/16 16:00 Room Air 11/07/16 15:27 37.4 78 18 139/68 (91) 92 Nasal Cannula 2.0 Humidified Oxygen 11/07/16 12:00 Room Air 11/07/16 11:43 37.2 82 20 151/64 (93) 96 11/07/16 08:00 Room Air 11/07/16 07:36 37.0 73 20 144/81 (102) 98 Nasal Cannula 2.0 Laboratory Results 24 Hours: Test 11/08/16 04:44 Assessment & Plan Assessment: POD #4 Left retrograde nail in femur Plan: Patient is doing well and feels well after the surgery. She denies any pain at the time of examination. Continue ASA 81mg BID for DVT Prophylaxis NWB DISPOSITION- HS WHEN STABLE. instructions were placed into chart Inhouse Planning Pain Management: Ultram, Oxy IR DVT Prophylaxis: ASA (81mg BID) Discharge Planning Discharge Planning: residential facility
[2016-11-08] MEDS ORDERED: VANCOMYCIN TROUGH SCH (07:30)
[2016-11-08 07:53] LABS: BASO % 0.3 %; BASO ABS # 0.03 K/uL (0-0.2); COMPLETE YES; EOS % 3.7 %; HEMATOCRIT 29.7 % (37-47); IG% 0.3 %; LYMPH % 17.4 %; MEAN CELL VOLUME 85.6 fL (80-100); MEAN CORPUSCULAR HEMOGLOBIN 28.5 pg (25-34); MEAN CORPUSCULAR HGB CONC 33.3 g/dl (32-36); MEAN PLATELET VOLUME 10.2 fL (7.4-10.4); MONO % 6.9 %; NEUT % 71.4 %; PLATELET COUNT 128 K/uL (130-400); RED BLOOD COUNT 3.47 M/uL (4.2-5.4); WHITE BLOOD COUNT 9.19 K/uL (4.8-10.8)
[2016-11-08] MEDS ORDERED: ASPI81TA28 PO (07:53)
[2016-11-08] MEDS ORDERED: ULT50X PO (07:53)
[2016-11-08] MEDS ORDERED: ERGO500011 PO (07:53)
[2016-11-08] MEDS ORDERED: RXC5 PO (07:53)
[2016-11-08] MEDS: FERROUS GLUCONATE 324 MG TAB PO SCH ×2 (08:06→11:32)
[2016-11-08] MEDS: LORATADINE 10 MG TAB PO SCH (08:06)
[2016-11-08] MEDS: MULTIVITAMIN TAB PO SCH (08:06)
[2016-11-08] MEDS: CALCIUM 600MG + VIT D 400 IU TAB PO SCH (08:06)
[2016-11-08] MEDS: PANTOprazole SOD 40 MG TAB PO SCH (08:07)
[2016-11-08] MEDS: DOCUSATE SODIUM 100 MG CAP PO SCH (08:07)
[2016-11-08] MEDS: SENNA 8.6 MG TAB PO SCH (08:07)
[2016-11-08] MEDS: ASPIRIN 81 MG ECTAB PO SCH (08:07)
[2016-11-08] MEDS: AMLODIPINE BESYLATE 5 MG TAB PO SCH (08:07)
[2016-11-08] MEDS: ESCITALOPRAM OXALATE 10 MG TAB PO SCH (08:08)
[2016-11-08] MEDS: LACTOBACILLUS ACIDOPHILUS (FLORANEX) TAB PO SCH (08:08)
[2016-11-08] MEDS: BUDESONIDE EC 3 MG CAP PO SCH (08:08)
[2016-11-08] MEDS: MEMANTINE HCL 21 MG PO SCH (08:09)
[2016-11-08] MEDS: VANCOMYCIN INJ 1,000 MG in SODIUM CHLORIDE 0.9% 250ML 250 ML IV SCH (08:10)
[2016-11-08 08:13] VITALS: BP 137/69; PULSE 75; TEMP 36.8; O2SAT 96
[2016-11-08 08:31] LABS: BUN/CREATININE RATIO 16.1 (10-20); CREATININE 0.69 mg/dl (0.60-1.20); MAGNESIUM 1.8 mg/dl (1.8-2.4)
[2016-11-08] MEDS ORDERED: HYDROCHLOROTHIAZIDE 25 MG TAB PO SCH (09:00)
--- NOTE | 2016-11-08 10:20 | Discharge Instructions ---
Discharge Instructions Date of Service Nov 08, 2016. Admission Reason for Admission: Acute Electrocardiogram Changes, Femur Fracture Lt Discharge Discharge Diagnosis / Problem: femur fracture from fall, paroxysmal hilda arrythmia Discharge Goals Goal(s): Diagnostic testing, Therapeutic intervention Activity Recommendations Activity Level: Assistance Required Therapies: Physical Therapy, Occupational Therapy . Additional Information Patient informed of condition: Yes Advance Directives: Yes DNR: Yes Level of Care: Acute Rehab Communicable Disease: No Prognosis: Stable Garcia Catheter: Yes (titrate to off once there) Instructions / Follow-Up Instructions / Follow-Up 81 F with left femur fracture and ECG changes on admission, baseline history of Alzheimer's disease, lung cancer s/p lung resection, HTN, anxiety and depression , and frontal meningioma Initial Head CT shows slight increase in size of known frontal meningioma, otherwise no acute findings. CXR no acute disease. Hip and knee x-rays show angulated fracture of left distal femur. EKG shows new T wave inversions in inferior and anterior leads. Cardiac enzymes negative. UA positive for UTI, labs otherwise grossly unremarkable. Left osteoporotic femur fracture, secondary to ground level fall- S/p open reduction and internal fixation with retrograde intramedullary nail, left periprosthetic femur fracture and polyethylene exchange on 11/[address] Velasquez. - PT/OT per ortho, accepted to [facility] in with titration to off -DVT proph with ASA bid Acute Blood loss anemia, thrombocytopenia- No evidence of ongoing bleeding Osteoporosis, Vit D deficiency- Vit D level 14.2 here - Continue Caltrate 1 tab BID and add Vit D2 94471 units once weekly - Patient will need to follow-up outpatient for continued osteoporosis management New T wave inversions noted on EKG, LBBB, Chronic diastolic CHF. ECHO without WMA, trop neg x 3. Cardiology suspects could have heart block as cause of recurrent syncope and falls. 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 Amado: - Head CT 11/04- Slight interval increase in the size of the 3 cm right frontal extra-axial mass, likely representing a meningioma -- November [address]- 2.8 cm mass - Seen neurology July 2016- 6 month f/u recommended --> scheduled to see Neuro in 01/2017 HTN- Amlodipine 5 mg daily Anxiety and depression: Lexapro 5 mg daily and Ativan 0.5 mg daily PRN Colitis: Pt and son not able to give me further history on this except pt thinks she has been on steroids for many years- Continue Budesonide 3 mg daily H/O Lung CA- 19 mm adenocarcinoma of right lower lobe s/p resection in 2011- noted DVT Prophylaxis: ASA 81 mg BID as per orthopedics Code Status: Level V, DNR Current Hospital Diet Patient's current hospital diet: Diabetes Type 2 Diet Discharge Diet Recommended Diet: Regular Diet Procedures Procedures Performed: Left Femur Retograde Intramedullary Nailing and Poly Exchange Pending Studies Studies pending at discharge: no Medical Emergencies . Who to Call and When: Medical Emergencies: If at any time you feel your situation is an emergency, please call 911 immediately. . Non-Emergent Contact Non-Emergency issues call your: Primary Care Provider Call Non-Emergent contact if: temperature is above 101, your pain is unusual for you . . "Provider Documentation" section prepared by Patrick Zhong. . Calibration Specialist Recommendations Calibration Specialist Recommendations: [facility] DISCHARGE INSTRUCTIONS: FEMUR FRACTURE SELF CARE INSTRUCTIONS: A. You are NON-WEIGHT BEARING on your operative lower extremity for at least 6 weeks. B. Wear low heeled shoes with non-slip soles C. Be sure that your floors are free of things that could trip you throw rugs, electrical cords, and small objects. Avoid wet and waxed floors, especially with crutches/walker/cane. D. Try to walk several times a day with rest periods between. E. You may shower 48 hours after surgery and get the incision area wet, but DO NOT soak or submerge incision area in water. (No baths, swimming pools, hot tubs ) F. You may have a large, band-aid like dressing over your incision (Aquacel). This will remain on your incision for 7 days, and then can be removed. You CAN shower with this on. If incision is leaking through the dressing, please call the office . G. Do NOT apply soap or any ointment/lotions directly over incision. H. You may use ice as needed to operative site. SPECIAL CARE INSTRUCTIONS: VERY IMPORTANT TO READ AND REVIEW A. You may be at risk for phlebitis or blood clots. a. Wear surgical stockings (MAYRA hose) for 2 weeks after surgery to improve circulation and reduce swelling. b. Take ASPIRIN 81MG twice daily for 4 weeks or as directed. This is your blood thinner. c. If you are on Coumadin- you will have daily/weekly blood work to monitor your levels. This will be done by either your family physician/ car ferrier (if you are on Coumadin chronically) versus your orthopedic surgeon. Expect a phone call the day of or the day after your blood work is drawn to adjust your dose accordingly. B. There are a few signs you need to watch for after you are home. Call [facility] at [phone] if you experience any of the following: a. If you have a temperature of 101 degrees or higher. b. Sudden increase in pain in your hip not relieved by rest or pain medication. c. Any fluid or drainage from the incision; redness of the incision. d. Shortness of breath or chest pain. B. Please call [facility] at [phone] if you have any questions or concerns about your operation or recovery. C. Call your physician if: a. Temperature is greater than 101 degrees (F). b. Pain is not relieved by prescribed pain medications. c. Increase drainage or redness from incision. d. Unanswered questions or concerns. D. Pain Medication: a. You will be prescribed pain medication upon discharge that should last till your first post-operative appointment. b. If you experience nausea and/or skin rash, discontinue this medication and contact our office for an alternative medication. c. Caution- narcotic pain medication can cause constipation. FOLLOW UP VISIT: Please call [facility] at [phone] to schedule a follow up appointment 10-14 days from the date of your surgery date. Core Measure Problem Core Measures: None
[2016-11-08] MEDS ORDERED: LORA-741 PO (10:25)
[2016-11-08 11:42] VITALS: BP 136/68; PULSE 93; TEMP 36.5; O2SAT 95
[2016-11-08 13:35] VITALS: BP 137/68; PULSE 90; O2SAT 95
[2016-11-08 14:11] VITALS: BP 137/68; PULSE 90; TEMP 36.5; O2SAT 95
--- NOTE | 2016-11-08 17:57 | Discharge Summary ---
Discharge Summary Date of Service Nov 08, 2016. Discharge Summary Admission Date: Nov 03, 2016 at 13:50 Discharge Date: Nov 08, 2016 Discharge Disposition: Rehab Principal Diagnosis: femur fracture, bradycardia Immunizations: Have You Had Influenza Vaccine: Yes History of Tetanus Vaccine?: Maybe History of Pneumococcal: 2002 History of Hepatitis B Vaccine: No Medication Reconciliation New Medications: Ergocalciferol (Vitamin D 03244 Unit) 50,000 Unit Cap 23066 INTERUNIT PO Sa@1500, #60 CAP Oxycodone HCl (Oxycodone HCl) 5 Mg Tab 5-10 MG PO Q4H PRN for Pain, #60 TAB Tramadol HCl (Tramadol HCl) 50 Mg Tab 50-100 MG PO Q4H PRN for Pain, #60 TAB Changed Medications: Aspirin (Aspirin Ec) 81 Mg Tab 81 MG PO BID, #365 (Changed from: QAM) 6 weeks of DVT prevention Continued Medications: Acetaminophen (Tylenol) 500 Mg Tab 500 MG PO Q6 PRN for Pain MAX 3GMS APAP IN 24 HRS. Amlodipine Besylate (Amlodipine Besylate) 5 Mg Tab 5 MG PO DAILY Budesonide (Budesonide) 3 Mg Cap 3 MG PO QAM Calcium Carbonate-Vitamin D (Calcium + D) 1 Tab Tab 1 TAB PO BID CALCIUM 600MG+D 4118-1080 Docusate Sodium (Docqlace) 100 Mg Cap 1 CAP PO BID Donepezil Hydrochloride (Donepezil Hcl) 10 Mg Tab 1 TAB PO HS Escitalopram Oxalate (Lexapro) 5 Mg Tab 5 MG PO QAM, TAB Loratadine (Claritin) 10 Mg Tab 10 MG PO QAM, TAB Lorazepam (Ativan) 0.5 Mg Tab 0.5 MG PO DAILY PRN for Anxiety, #30 TAB (This prescription has been renewed) Memantine Hcl (Namenda Xr) 21 Mg Cap 1 CAP PO QAM Multiple Vitamins W/ Minerals (Centrum Silver Ultra Wome) 1 Tab Tab 1 TAB PO DAILY Probiotic Product (Probiotic) 1 Tab Tab 1 TAB PO BID 0800 AND 1700 Sennosides (Senna Lax) 8.6 Mg Tab 8.6 MG PO DAILY Triamcinolone Acetonide (Nasal (Nasacort Allergy 24Hr) 55 Mcg/Act Spr 1 SPRAY MARK DAILY Discontinued Medications: Diphenhydramine Hcl (Benadryl Allergy) 25 Mg Cap 1 CAP PO HS Hydrochlorothiazide (Hctz) 12.5 Mg Cap 12.5 MG PO DAILY Discharge Exam Review of Systems: Constitutional: + fever, + chills Respiratory: + cough, + sputum, + shortness of breath, + dyspnea on exertion Cardiovascular: + chest pain, + orthopnea, + edema Genitourinary - Female: + dysuria, + urinary frequency Physical Exam: General Appearance: WD/WN, no apparent distress Eyes: PERRL, EOMI Respiratory/Chest: chest non-tender, lungs clear Cardiovascular: regular rate, rhythm, + systolic murmur Abdomen / GI: normal bowel sounds, non tender, soft Neurologic/Psychiatric: alert, oriented x 3 Hospital Course 81 F with left femur fracture and ECG changes on admission, baseline history of Alzheimer's disease, lung cancer s/p lung resection, HTN, anxiety and depression , and frontal meningioma Initial Head CT shows slight increase in size of known frontal meningioma, otherwise no acute findings. CXR no acute disease. Hip and knee x-rays show angulated fracture of left distal femur. EKG shows new T wave inversions in inferior and anterior leads. Cardiac enzymes negative. UA positive for UTI, labs otherwise grossly unremarkable. Left osteoporotic femur fracture, secondary to ground level fall- S/p open reduction and internal fixation with retrograde intramedullary nail, left periprosthetic femur fracture and polyethylene exchange on 11/[address] Velasquez. - PT/OT per ortho, accepted to [facility] in with titration to off -DVT proph with ASA bid Acute Blood loss anemia, thrombocytopenia- No evidence of ongoing bleeding Osteoporosis, Vit D deficiency- Vit D level 14.2 here - Continue Caltrate 1 tab BID and add Vit D2 73926 units once weekly - Patient will need to follow-up outpatient for continued osteoporosis management New T wave inversions noted on EKG, LBBB, Chronic diastolic CHF. ECHO without WMA, trop neg x 3. Cardiology suspects could have heart block as cause of recurrent syncope and falls. 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 Amado: - Head CT 11/04- Slight interval increase in the size of the 3 cm right frontal extra-axial mass, likely representing a meningioma -- November [address]- 2.8 cm mass - Seen neurology July 2016- 6 month f/u recommended --> scheduled to see Neuro in 01/2017 HTN- Amlodipine 5 mg daily Anxiety and depression: Lexapro 5 mg daily and Ativan 0.5 mg daily PRN Colitis: Pt and son not able to give me further history on this except pt thinks she has been on steroids for many years- Continue Budesonide 3 mg daily H/O Lung CA- 19 mm adenocarcinoma of right lower lobe s/p resection in 2011- noted DVT Prophylaxis: ASA 81 mg BID as per orthopedics Code Status: Level V, DNR Total Time Spent: Greater than 30 minutes This includes examination of the patient, discharge planning, medication reconciliation, and communication with other providers. Discharge Instructions Please refer to the electronic Patient Visit Report (Discharge Instructions) for additional information.
== END 2016-11-08 15:46 | DRG 481 ==
LOC: EDBD 07:38 → C.EDA 07:40 → ENRESERV 13:33 → CANRESERV 13:33 → C.2E 13:50 → EDBEDREQSVC 13:53 → ENRESERV 14:40
PROVIDERS: ADMIT Hospitalist; ATTEND Internal Medicine
PROC: 0QSC06Z Reposition Left Lower Femur with Intramedullary Internal Fixation Device, Open Approach (ICD-10-PCS; principal; 2016-11-04 07:15)
PROC: 0SW Lower Joints, Revision (ICD-10-PCS; principal; 2016-11-04 07:15)
DX: M80.052A Age-related osteoporosis with current pathological fracture, left femur, initial encounter for fracture (principal); M97.12XA Periprosthetic fracture around internal prosthetic left knee joint, initial encounter; N39.0 Urinary tract infection, site not specified; D62 Acute posthemorrhagic anemia; I44.7 Left bundle-branch block, unspecified; R00.1 Bradycardia, unspecified; R29.6 Repeated falls; E11.9 Type 2 diabetes mellitus without complications; I10 Essential (primary) hypertension; G30.9 Alzheimer's disease, unspecified; F02.80 Dementia in other diseases classified elsewhere, unspecified severity, without behavioral disturbance, psychotic disturbance, mood disturbance, and anxiety; D32.0 Benign neoplasm of cerebral meninges; F32.9 Major depressive disorder, single episode, unspecified; F41.9 Anxiety disorder, unspecified; K52.9 Noninfective gastroenteritis and colitis, unspecified; D69.6 Thrombocytopenia, unspecified; Z66 Do not resuscitate; Z79.82 Long term (current) use of aspirin; Z79.899 Other long term (current) drug therapy; Z85.118 Personal history of other malignant neoplasm of bronchus and lung; Z91.81 History of falling; Z96.653 Presence of artificial knee joint, bilateral; W19.XXXA Unspecified fall, initial encounter

== ENCOUNTER → 2016-11-11 | Outpatient (CLI) | payer OTHER, MEDICARE ==
[~2016-11-11] MED LIST changes: +CALC-492 PO; +CLR10 PO; -DIPH25CA65 PO; +ERGO500011 PO; +ESCI10TA17 PO; -HYDR12.56 PO; +LORA-741 PO; +MULTTAB63 PO; +RXC5 PO; +SENN1TAB80 PO; +ULT50X PO
--- NOTE | 2016-11-11 16:44 | DIAGNOSTIC IMAGING REPORT ---
LEFT ANKLE MIN 3 VIEWS ROUTINE CLINICAL HISTORY: MEDIAL MALLEOLUS PAIN pain COMPARISON: 10/14/2016 DISCUSSION: Mild soft tissue edema. Cortical lobulation of the distal fibula which has been described previously. This is felt to be secondary to old trauma. No acute bony abnormality. Heel spur is present. Ossification Achilles tendon insertion. There is no evidence for soft tissue swelling. IMPRESSION: Degenerative change. Heel spur. No acute bony abnormality. Electronically signed by: Lance Kauffman M.D. 11/11/2016 4:43 PM Dictated Date/Time: 11/11/2016 4:42 PM
== END | disposition home or self-care (01) ==
LOC: C.RAD 15:37
PROVIDERS: ATTEND Physical Medicine & Rehabilitation
DX: M25.572 Pain in left ankle and joints of left foot (principal); M77.32 Calcaneal spur, left foot

== ENCOUNTER → 2016-12-07 | Outpatient (CLI) | payer OTHER, MEDICARE ==
[~2016-12-07] MED LIST changes: -CALC-492 PO; +ERGO1CAP41 PO; -ERGO500011 PO; -ESCI10TA17 PO; -MULTTAB63 PO; -SENN1TAB80 PO; +SENN8.6T13 PO
[2016-12-07 14:52] LABS: URINE APPEARANCE CLOUDY (CLEAR); URINE BILIRUBIN NEG (NEG); URINE COLOR YELLOW; URINE EPITHELIAL CELL AUTO >30 /lpf (0-5); URINE NITRITE NEG (NEG); URINE PH >= 9.0 (4.5-7.5); URINE SPECIFIC GRAVITY 1.013 (1.000-1.030); UROBILINOGEN NEG (NEG)
[2016-12-07 15:07] LABS: MANUAL MICROSCOPIC REQUIRED? NO; REVIEW REQ? YES; SULFASALICYLIC ACID POS (NEG)
== END | disposition home or self-care (01) ==
LOC: C.LABWYN 12:44
PROVIDERS: ATTEND Family Medicine
DX: R50.9 Fever, unspecified (principal)

== ENCOUNTER → 2017-01-03 | Outpatient (CLI) | payer OTHER, MEDICARE ==
[2017-01-04 12:03] LABS: URINE APPEARANCE CLOUDY (CLEAR); URINE BILIRUBIN NEG (NEG); URINE COLOR YELLOW; URINE NITRITE NEG (NEG); URINE SPECIFIC GRAVITY 1.015 (1.000-1.030); UROBILINOGEN NEG (NEG)
[2017-01-04 12:13] LABS: MANUAL MICROSCOPIC REQUIRED? NO; REVIEW REQ? NO
== END | disposition home or self-care (01) ==
LOC: C.LABWYN 10:34
PROVIDERS: ATTEND Family Medicine
DX: R30.0 Dysuria (principal)

== ENCOUNTER → 2017-01-21 | Outpatient (CLI) | payer OTHER, MEDICARE ==
[2017-01-21 17:45] LABS: URINE APPEARANCE TURBID (CLEAR); URINE BILIRUBIN NEG (NEG); URINE COLOR YELLOW; URINE EPITHELIAL CELL AUTO 20-30 /lpf (0-5); URINE NITRITE NEG (NEG); URINE SPECIFIC GRAVITY 1.014 (1.000-1.030); UROBILINOGEN NEG (NEG)
[2017-01-21 17:46] LABS: MANUAL MICROSCOPIC REQUIRED? NO; REVIEW REQ? NO
== END | disposition home or self-care (01) ==
LOC: C.LABSPEC 14:05 → C.MNPGOH 16:55 → EDSTATUS 01-25 14:01
PROVIDERS: ATTEND Family Medicine
DX: R39.15 Urgency of urination (principal); R35.0 Frequency of micturition

== ENCOUNTER → 2017-02-17 | Outpatient (CLI) | payer OTHER, MEDICARE ==
--- NOTE | 2017-02-17 16:23 | DIAGNOSTIC IMAGING REPORT ---
CHEST 2 VIEWS ROUTINE CLINICAL HISTORY: COUGH FEVER COMPARISON STUDY: 11/03/2016 FINDINGS: The cardiac and mediastinal contours remain stable. Old right-sided rib deformities are evident. There is no focal pulmonary consolidation. There is no failure. There are no pleural effusions. There is chronic prominence of the right midlung zone interstitial markings.[ IMPRESSION: No active disease in the chest. Electronically signed by: Oli Thompson M.D. 02/17/2017 4:22 PM Dictated Date/Time: 02/17/2017 4:22 PM
== END | disposition home or self-care (01) ==
LOC: C.RAD1850 16:03
PROVIDERS: ATTEND Student in an Organized Health Care Education/Training Program
DX: R05 Cough (principal)

== ENCOUNTER 2017-04-15 16:57 | Emergency (ER) | payer OTHER, MEDICARE ==
[~2017-04-15] VITALS: Ht 162.6 cm; Wt 63.0 kg
[~2017-04-15 16:57] MED LIST changes: -ERGO1CAP41 PO; +ERGO500011 PO; +SENN1TAB80 PO; -SENN8.6T13 PO
[2017-04-15] MEDS ORDERED: MULTTAB63 PO (17:14)
[2017-04-15] MEDS ORDERED: CALC-492 PO (17:14)
[2017-04-15] MEDS ORDERED: ESCI10TA17 PO (17:14)
--- NOTE | 2017-04-15 17:14 | EMERGENCY ROOM VISIT NOTE ---
History Report prepared by Polly: Elia Santizo Under the Supervision of: Dr. Dave Christopher M.D. First contact with patient: 17:06 Stated Complaint: FOUND WONDERING/ EVAL /[employer]WO[employer] HOUSE History of Present Illness The patient is an 82 year old female who presents to the Emergency Room with complaints of an episode of wandering around today. Per nurse, the patient was found a mile away from [facility], where she lives. The patient states that she currently feels fine and has not hit her head, but is "very embarrassed." HPI limited secondary to dementia. Source of History: nursing staff History Limited By: dementia Onset: today Position: other (global) Quality: other (wandering around) Timing: other (an episode) Note: The patient denies hitting her head, but notes that she is embarrassed. Review of Systems ROS limited secondary to dementia. Past Medical & Surgical Medical Problems: (1) Acute electrocardiogram changes (2) Acute recurrent tonsillitis (3) Dementia (4) Diabetes (5) Diarrhea (6) Fall (7) Femur fracture, left (8) Head injury (9) HTN (hypertension) (10) Lung cancer Surgical Problems: (1) History of knee replacement Family History Diabetes mellitus FH: heart disease Hypertension Social History Smoking Status: Never Smoker Alcohol Use: occasionally Drug Use: none Marital Status: Housing Status: lives alone Occupation Status: retired Current/Historical Medications Scheduled Amlodipine Besylate (Amlodipine Besylate), 5 MG PO DAILY Budesonide (Budesonide), 3 MG PO QAM Calcium Carbonate-Cholecalcife (Oyster Shell Calcium+D 500-200 mg-Unit), 1 TAB PO BID Docusate Sodium (Docqlace), 100 MG PO BID Donepezil Hydrochloride (Donepezil Hcl), 10 MG PO HS Ergocalciferol (Vitamin D 99169 Unit), 50,000 INTERUNIT PO Sa@1500 Escitalopram (Lexapro), 10 MG PO HS Loratadine (Claritin), 10 MG PO QAM Memantine Hcl (Namenda Xr), 21 MG PO QAM Multiple Vitamins W/ Minerals (Therems M), 1 TAB PO DAILY Probiotic Product (Probiotic), 1 TAB PO BID Sennosides (Senna Lax), 8.6 MG PO DAILY Triamcinolone Acetonide (Nasal (Nasacort Allergy 24Hr), 1 SPRAY MARK DAILY Scheduled PRN Acetaminophen (Tylenol), 500 MG PO Q6 PRN for Pain Lorazepam (Ativan), 0.5 MG PO DAILY PRN for Anxiety Tramadol HCl (Tramadol HCl), 50-100 MG PO Q4H PRN for Pain Allergies Coded Allergies: Latex (Verified Allergy, Mild, RASH, 04/15/17) Penicillins (Verified Allergy, Mild, HIVES, 04/15/17) Povidone (Verified Allergy, Mild, TOPICAL - RASH, 04/15/17) Adhesives (Verified Allergy, Unknown, "BANDAID ALLERGY", 04/15/17) Cephalexin (Unverified Allergy, Unknown, ?, 04/15/17) Iodine (Verified Allergy, Unknown, ., 04/15/17) Sulfamethoxazole w/Trimethoprim (Unverified Allergy, Unknown, ., 04/15/17) Hydrocodone (Verified Adverse Reaction, Intermediate, vomiting, nausea, ) Physical Exam Vital Signs Date Time Temp Pulse Resp B/P (MAP) Pulse Ox O2 Delivery O2 Flow Rate FiO2 04/15/17 17:16 36.7 65 20 196/91 95 Room Air Physical Exam GENERAL: Patient is in no acute distress. HEENT: No acute trauma, normocephalic atraumatic, mucous membranes moist, no nasal congestion, no scleral icterus. NECK: No stridor, no adenopathy, no meningismus, trachea is midline. LUNGS: Clear to auscultation bilaterally, no wheeze, no rhonchi, breath sounds equal. HEART: Without murmurs gallops or rubs, regular rate and rhythm. ABDOMEN: Soft, nontender, bowel sounds positive, no hernias, no peritonitis. EXTREMITIES: No cyanosis or edema, full range of motion of all the joints without pain or difficulty, no signs for acute trauma. NEUROLOGIC: Dementia noted, unreliable historian, no focal motor deficits, awake and alert. SKIN: No rash, no jaundice, no diaphoresis. Medical Decision & Procedures ED Course 1708: The patient was evaluated in room C7. A complete history and physical exam was performed. 1725: I spoke to the patient's family. The family is happy to take her home. 1727: Reevaluated the patient. Discussed results and discharge instructions: She and her family verbalized understanding and agreement. The patient is ready for discharge. Medical Decision Differential diagnoses include: dementia, confusion, fall, infection, dehydration, UTI, and electrolyte abnormality. The patient presents by ambulance after being found wandering. She had wandered away from her living facility. We did contact the facility, the patient has had no concerning issues as of late. She has been at her baseline health. The patient currently has no complaints. She denies falling. She has no chest pain or shortness of breath or abdominal pain. She is asking to be discharged back to her living facility. Nothing on exam appears worrisome. Her lungs are clear, her heart is normal. She has no focal neurologic findings. I find no evidence for trauma. She does have dementia and I suspect she wandered away unknowingly. She is being transferred back to the facility. I did speak to her [id number] who was at the bedside. Blood Pressure Screening Patient's blood pressure: Elevated blood pressure referred to family doctor Impression Primary Impression: Dementia Scribe Attestation The scribe's documentation has been prepared under my direction and personally reviewed by me in its entirety. I confirm that the note above accurately reflects all work, treatment, procedures, and medical decision making performed by me. Departure Information Dispostion Home / Self-Care Referrals No Doctor, Assigned (PCP) Forms HOME CARE DOCUMENTATION FORM, IMPORTANT VISIT INFORMATION, WORK / SCHOOL INSTRUCTIONS Patient Instructions [facility] Additional Instructions care as before return for fever or worsening symptoms patient had no complaints today and no signs of trauma
[2017-04-15 17:16] VITALS: BP 196/91; PULSE 65; TEMP 36.7; O2SAT 95; Ht 162.6 cm; Wt 63.0 kg
== END 2017-04-15 17:47 | disposition home or self-care (01) ==
LOC: EDBD 16:57 → C.EDC 16:58
DX: F03.90 Unspecified dementia, unspecified severity, without behavioral disturbance, psychotic disturbance, mood disturbance, and anxiety (principal); I10 Essential (primary) hypertension; E11.9 Type 2 diabetes mellitus without complications; Z85.118 Personal history of other malignant neoplasm of bronchus and lung; Z87.81 Personal history of (healed) traumatic fracture; Z87.828 Personal history of other (healed) physical injury and trauma; Z91.81 History of falling; Z79.899 Other long term (current) drug therapy; Z88.0 Allergy status to penicillin; Z88.2 Allergy status to sulfonamides; Z88.5 Allergy status to narcotic agent; Z88.8 Allergy status to other drugs, medicaments and biological substances; Z91.09 Other allergy status, other than to drugs and biological substances; Z91.040 Latex allergy status; Z83.3 Family history of diabetes mellitus; Z82.49 Family history of ischemic heart disease and other diseases of the circulatory system

== ENCOUNTER → 2017-04-19 | Outpatient (CLI) | payer OTHER, MEDICARE ==
[~2017-04-19] MED LIST changes: -ASPI81TA28 PO; +CALC-492 PO; -CALC600T9 PO; +ESCI10TA17 PO; -ESCI1TAB6 PO; -MULT-614 PO; +MULTTAB63 PO; -RXC5 PO
[2017-04-20 10:35] LABS: URINE APPEARANCE CLEAR (CLEAR); URINE BILIRUBIN NEG (NEG); URINE COLOR DK YELLOW; URINE EPITHELIAL CELL AUTO >30 /lpf (0-5); URINE NITRITE NEG (NEG); URINE PH 6.5 (4.5-7.5); URINE SPECIFIC GRAVITY 1.024 (1.000-1.030); UROBILINOGEN NEG (NEG)
[2017-04-20 10:36] LABS: MANUAL MICROSCOPIC REQUIRED? NO; REVIEW REQ? YES
== END | disposition home or self-care (01) ==
LOC: C.LABWYN 21:00
PROVIDERS: ATTEND Family Medicine
DX: R41.0 Disorientation, unspecified (principal)

== ENCOUNTER 2017-06-27 13:18 | Emergency (ER) | payer OTHER, MEDICARE ==
[~2017-06-27] VITALS: Ht 167.6 cm; Wt 59.8 kg
[2017-06-27 13:30] VITALS: TEMP 36.7; Ht 167.6 cm; Wt 59.8 kg
--- NOTE | 2017-06-27 15:23 | DIAGNOSTIC IMAGING REPORT ---
CT SCAN OF THE CERVICAL SPINE CLINICAL HISTORY: Fall. COMPARISON STUDY: CT scan of cervical spine dated 12/01/2015. TECHNIQUE: CT scan of the cervical spine is performed from the skull base to the upper thoracic spine. Images are reviewed in the axial, sagittal, and coronal planes. IV contrast was not administered for this examination. A dose lowering technique was utilized adhering to the principles of ALARA. CT DOSE: 1034.11 mGy.cm FINDINGS: Skeletal structures: The skeletal structures are osteopenic. There is no evidence of fracture or subluxation involving the cervical spine. Vertebral body height is maintained. There is minimal anterolisthesis at C4-C5 and C5-C6. Alignment is otherwise preserved. There is straightening of the cervical lordosis. The odontoid process and lateral masses are intact. The atlantoaxial articulation is preserved noting advanced productive degenerative change. Anterior osteophytes are seen in the mid to lower cervical region. The spinous processes appear intact. A large sclerotic focus is again seen within the left pedicle of T2. This likely represents a bone island. There is moderate to advanced multilevel cervical spondylosis. Uncovertebral and facet arthropathy contribute sterile foraminal stenosis at most levels. Intervertebral discs: Moderate disc space narrowing is seen at C6-C7. Mild disc space narrowing is seen at the remaining cervical levels. Central canal: Grossly patent. Soft tissues: The prevertebral and paraspinous soft tissues are within normal limits. Calvarium: The visualized calvarium at the skull base appears intact. Brain parenchyma: Partially visualized brain parenchyma the skull base is within normal limits noting age-related involutional change. Sinuses and mastoids: Trace mucosal thickening is seen in the right maxillary antrum. The remaining visualized paranasal sinuses are clear. The mastoid air cells are well pneumatized. Lung apices: Apical scarring is observed. Partially imaged upper lobe lung parenchyma is otherwise grossly clear as visualized. IMPRESSION: 1. There is no evidence of fracture or subluxation involving the cervical spine. 2. Osteopenia and spondylotic change as above. Electronically signed by: Dave Lehman M.D. 06/27/2017 3:22 PM Dictated Date/Time: 06/27/2017 3:18 PM
--- NOTE | 2017-06-27 15:26 | DIAGNOSTIC IMAGING REPORT ---
HEAD CT NONCONTRAST CT DOSE: HISTORY: Fall. Head injury. TECHNIQUE: Multiaxial CT images of the head were performed without the use of intravenous contrast. Automated exposure control was utilized for this study. A dose lowering technique was utilized adhering to the principles of ALARA. Comparison: Head CT 11/03/2016. Findings: The paranasal sinuses and mastoid air cells are clear. The calvarium and skull base are intact. There is no hematoma, midline shift, acute infarct. White matter hypodensity is nonspecific but suggestive of microvascular ischemic change. The ventricles and sulci demonstrate mild age-related involutional changes. Stable 3 cm slightly hyperdense extra-axial right frontal mass. This is consistent with a meningioma. Mild right parietal scalp swelling. Old lacunar infarct within the right thalamus, unchanged. Impression: No significant change compared to the prior study. No acute intracranial abnormality. Electronically signed by: Lucas Vega M.D. 06/27/2017 3:25 PM Dictated Date/Time: 06/27/2017 3:16 PM
[2017-06-27] MEDS ORDERED: LORA-741 PO (15:49)
[2017-06-27] MEDS ORDERED: TRAZ50TA35 PO (15:49)
[2017-06-27] MEDS ORDERED: ATV/1 PO (15:49)
--- NOTE | 2017-06-27 15:54 | DIAGNOSTIC IMAGING REPORT ---
RIGHT KNEE 3 VIEWS HISTORY: r knee pain COMPARISON: None. FINDINGS: The bones are osteopenic. No acute fracture or dislocation. Right total knee arthroplasty. The hardware appears intact. No significant knee effusion. Calcification seen within the distal quadriceps tendon. This is likely chronic. Soft tissues are unremarkable. IMPRESSION: No acute fracture or dislocation within the right knee. Electronically signed by: Lucas Vega M.D. 06/27/2017 3:52 PM Dictated Date/Time: 06/27/2017 3:51 PM
--- NOTE | 2017-06-27 15:54 | DIAGNOSTIC IMAGING REPORT ---
CHEST ONE VIEW PORTABLE HISTORY: fall COMPARISON: Chest 02/17/2017. FINDINGS: Mild diffuse interstitial thickening which is likely chronic. No new focal lung consolidations. No pleural effusions. No pneumothorax. The heart remains mildly enlarged. Old, healed right-sided rib fractures. IMPRESSION: No significant change compared to the prior study. No acute process. Electronically signed by: Lucas Vega M.D. 06/27/2017 3:53 PM Dictated Date/Time: 06/27/2017 3:52 PM
--- NOTE | 2017-06-27 15:56 | DIAGNOSTIC IMAGING REPORT ---
PELVIS ONE VIEW HISTORY: Right hip pain. fall COMPARISON: Pelvis 04/11/2015. FINDINGS: No acute fracture or dislocation within the pelvis or hips. The sacrum appears intact. Mild osteoarthritis within the bilateral hips. Degenerative changes within the lower lumbar spine. Partially visualized left femoral intramedullary enrrique. The bones are osteopenic. Soft tissues are unremarkable. IMPRESSION: No acute fracture or dislocation within the pelvis or hips. Electronically signed by: Lucas Vega M.D. 06/27/2017 3:55 PM Dictated Date/Time: 06/27/2017 3:53 PM
[2017-06-27 16:44] VITALS: BP 178/82; PULSE 64; O2SAT 96
--- NOTE | 2017-06-27 21:11 | EMERGENCY ROOM VISIT NOTE ---
History Report prepared by Kwameibham: Virginia Joy Under the Supervision of: Dr. Dereck Layne D.O. First contact with patient: 14:00 Chief Complaint: FALL Stated Complaint: FALL/NECK AND BACK PAIN History of Present Illness The patient is an 82 year old female who presents to the Emergency Room with complaints of an episode of fall [employer]. The patient resides at [facility]. She had a witnessed fall backwards and hit her head. Patient at that time per report was pushing her walker and carry something in her hands. Witnessed notes that she was struggling pushing her walker forward and fell backwards. She did not lose consciousness. She initially complained of head pain, neck pain , and back pain. She states her right knee is sore. Her teeth are lining up normally. She denies any arm pain, chest pain, abdominal pain, or hip pain. She is not on any blood thinners. Source of History: patient, nursing staff Onset: [employer] Position: other (global) Quality: other (fall) Timing: other (episodic) Associated Symptoms: + headache, + neck pain, + back pain, No LOC, No chest pain, No abdominal pain Review of Systems See HPI for pertinent positives & negatives. A total of 10 systems reviewed and were otherwise negative. Past Medical & Surgical Medical Problems: (1) Acute electrocardiogram changes (2) Acute recurrent tonsillitis (3) Dementia (4) Diabetes (5) Diarrhea (6) Fall (7) Femur fracture, left (8) Head injury (9) HTN (hypertension) (10) Lung cancer Surgical Problems: (1) History of knee replacement Family History Diabetes mellitus FH: heart disease Hypertension Social History Smoking Status: Never Smoker Alcohol Use: occasionally Drug Use: none Marital Status: Housing Status: lives alone Occupation Status: retired Current/Historical Medications Scheduled Amlodipine Besylate (Amlodipine Besylate), 5 MG PO DAILY Calcium Carbonate-Cholecalcife (Oyster Shell Calcium+D 500-200 mg-Unit), 1 TAB PO BID Docusate Sodium (Docqlace), 100 MG PO BID Donepezil Hydrochloride (Donepezil Hcl), 10 MG PO HS Ergocalciferol (Vitamin D 91562 Unit), 50,000 INTERUNIT PO Sa@1500 Escitalopram (Lexapro), 10 MG PO HS Loratadine (Claritin), 10 MG PO QAM Lorazepam (Ativan), 1 MG PO DAILY Memantine Hcl (Namenda Xr), 21 MG PO QAM Multiple Vitamins W/ Minerals (Therems M), 1 TAB PO DAILY Probiotic Product (Probiotic), 1 TAB PO BID Sennosides (Senna Lax), 8.6 MG PO DAILY Trazodone Hcl (Trazodone), 25 MG PO DAILY Triamcinolone Acetonide (Nasal (Nasacort Allergy 24Hr), 2 SPRAY MARK DAILY Scheduled PRN Acetaminophen (Tylenol), 500 MG PO Q6 PRN for Pain Lorazepam (Ativan), 0.5 MG PO Q6H PRN for Anxiety Allergies Coded Allergies: Latex (Verified Allergy, Mild, RASH, 06/27/17) Penicillins (Verified Allergy, Mild, HIVES, 06/27/17) Povidone (Verified Allergy, Mild, TOPICAL - RASH, 06/27/17) Adhesives (Verified Allergy, Unknown, "BANDAID ALLERGY", 06/27/17) Cephalexin (Unverified Allergy, Unknown, ?, 06/27/17) Iodine (Verified Allergy, Unknown, ., 06/27/17) Sulfamethoxazole w/Trimethoprim (Unverified Allergy, Unknown, ., 06/27/17) Hydrocodone (Verified Adverse Reaction, Intermediate, vomiting, nausea, ) Physical Exam Vital Signs Date Time Temp Pulse Resp B/P (MAP) Pulse Ox O2 Delivery O2 Flow Rate FiO2 06/27/17 16:44 64 20 178/82 96 Room Air 06/27/17 15:14 60 16 157/85 96 Room Air 06/27/17 13:30 36.7 67 18 193/89 97 Room Air Physical Exam GENERAL: lying flat in bed, cervical collar in place HEAD: normal cephalic, atraumatic EYE EXAM: normal conjunctiva, PERRL and EOM's grossly intact OROPHARYNX: no exudate, no erythema, lips, buccal mucosa, and tongue normal and mucous membranes are moist EARS: TMs clear b/l NECK: supple, no nuchal rigidity, no adenopathy, non-tender CHEST: stable to compression anteriorly and posteriorly LUNGS: clear to auscultation. Normal chest wall mechanics HEART: no murmurs, S1 normal and S2 normal ABDOMEN: abdomen soft, non-tender, normo-active bowel sounds, no masses, no rebound or guarding. PELVIS: stable to compression anteriorly and posteriorly BACK: Back is symmetrical on inspection and there is no deformity, no midline tenderness, no CVA tenderness. UPPER EXTREMITIES: full active and passive range of motion of all joints without tenderness to palpation LOWER EXTREMITIES: full active and passive range of motion of all joints without tenderness to palpation with the exception of right knee. NEURO EXAM: Oriented to person and place but not year, baseline per report. Cranial nerves II-XII grossly intact, normal speech, no gross weakness of arms , no gross weakness of legs. Medical Decision & Procedures ER Provider Diagnostic Interpretation: Xray results as stated below per my and the radiologist's interpretation: PELVIS ONE VIEW HISTORY: Right hip pain. fall COMPARISON: Pelvis 04/11/2015. FINDINGS: No acute fracture or dislocation within the pelvis or hips. The sacrum appears intact. Mild osteoarthritis within the bilateral hips. Degenerative changes within the lower lumbar spine. Partially visualized left femoral intramedullary enrrique. The bones are osteopenic. Soft tissues are unremarkable. IMPRESSION: No acute fracture or dislocation within the pelvis or hips. Electronically signed by: Lucas Vega M.D. 06/27/2017 3:55 PM Dictated Date/Time: 06/27/2017 3:53 PM RIGHT KNEE 3 VIEWS HISTORY: r knee pain COMPARISON: None. FINDINGS: The bones are osteopenic. No acute fracture or dislocation. Right total knee arthroplasty. The hardware appears intact. No significant knee effusion. Calcification seen within the distal quadriceps tendon. This is likely chronic. Soft tissues are unremarkable. IMPRESSION: No acute fracture or dislocation within the right knee. Electronically signed by: Lucas Vega M.D. 06/27/2017 3:52 PM Dictated Date/Time: 06/27/2017 3:51 PM CHEST ONE VIEW PORTABLE HISTORY: fall COMPARISON: Chest 02/17/2017. FINDINGS: Mild diffuse interstitial thickening which is likely chronic. No new focal lung consolidations. No pleural effusions. No pneumothorax. The heart remains mildly enlarged. Old, healed right-sided rib fractures. IMPRESSION: No significant change compared to the prior study. No acute process. Electronically signed by: Lucas Vega M.D. 06/27/2017 3:53 PM Dictated Date/Time: 06/27/2017 3:[address]AST CT DOSE: HISTORY: Fall. Head injury. TECHNIQUE: Multiaxial CT images of the head were performed without the use of intravenous contrast. Automated exposure control was utilized for this study. A dose lowering technique was utilized adhering to the principles of ALARA. Comparison: Head CT 11/03/2016. Findings: The paranasal sinuses and mastoid air cells are clear. The calvarium and skull base are intact. There is no hematoma, midline shift, acute infarct. White matter hypodensity is nonspecific but suggestive of microvascular ischemic change. The ventricles and sulci demonstrate mild age-related involutional changes. Stable 3 cm slightly hyperdense extra-axial right frontal mass. This is consistent with a meningioma. Mild right parietal scalp swelling. Old lacunar infarct within the right thalamus, unchanged. Impression: No significant change compared to the prior study. No acute intracranial abnormality. Electronically signed by: Lucas Vega M.D. 06/27/2017 3:25 PM Dictated Date/Time: 06/27/2017 3:[address] SCAN OF THE CERVICAL SPINE CLINICAL HISTORY: Fall. COMPARISON STUDY: CT scan of cervical spine dated 12/01/2015. TECHNIQUE: CT scan of the cervical spine is performed from the skull base to the upper thoracic spine. Images are reviewed in the axial, sagittal, and coronal planes. IV contrast was not administered for this examination. A dose lowering technique was utilized adhering to the principles of ALARA. CT DOSE: 1034.11 mGy.cm FINDINGS: Skeletal structures: The skeletal structures are osteopenic. There is no evidence of fracture or subluxation involving the cervical spine. Vertebral body height is maintained. There is minimal anterolisthesis at C4-C5 and C5-C6. Alignment is otherwise preserved. There is straightening of the cervical lordosis. The odontoid process and lateral masses are intact. The atlantoaxial articulation is preserved noting advanced productive degenerative change. Anterior osteophytes are seen in the mid to lower cervical region. The spinous processes appear intact. A large sclerotic focus is again seen within the left pedicle of T2. This likely represents a bone island. There is moderate to advanced multilevel cervical spondylosis. Uncovertebral and facet arthropathy contribute sterile foraminal stenosis at most levels. Intervertebral discs: Moderate disc space narrowing is seen at C6-C7. Mild disc space narrowing is seen at the remaining cervical levels. Central canal: Grossly patent. Soft tissues: The prevertebral and paraspinous soft tissues are within normal limits. Calvarium: The visualized calvarium at the skull base appears intact. Brain parenchyma: Partially visualized brain parenchyma the skull base is within normal limits noting age-related involutional change. Sinuses and mastoids: Trace mucosal thickening is seen in the right maxillary antrum. The remaining visualized paranasal sinuses are clear. The mastoid air cells are well pneumatized. Lung apices: Apical scarring is observed. Partially imaged upper lobe lung parenchyma is otherwise grossly clear as visualized. IMPRESSION: 1. There is no evidence of fracture or subluxation involving the cervical spine. 2. Osteopenia and spondylotic change as above. Electronically signed by: Dave Lehman M.D. 06/27/2017 3:22 PM Dictated Date/Time: 06/27/2017 3:18 PM ED Course ED COURSE: Vital signs were reviewed and showed hypertension. The patients medical record was reviewed The above diagnostic studies were performed and reviewed. ED treatments and interventions as stated above. 1405: The patient was evaluated in room A11A. A complete history and physical examination was performed. 1609: I spoke with [facility] staff who states that the patient was pushing her walker and carrying a word search when she lost her balance and fell. She fell backwards as she was carrying everything. I spoke with them about the results and the plan. 1618: Upon reevaluation, the patient is resting comfortably. I discussed my findings with the patient's son and he understands and agrees with the treatment plan. Based on the patients age, coexisting illnesses, exam and lab findings the decision to treat as an outpatient was made. The patient remained stable while under my care. The patient appeared well at the time of discharge. Medical Decision Differential diagnoses include major intracranial, cervical, spinal, thoracic, abdominal, pelvic and neurologic injury. Fracture, contusion, sprain, strain, laceration, abrasions included as well. Patient is an 82-year-old female with dementia per report had a mechanical fall where she was pushing her walker while carrying something. THEY NOTE THAT SHE LOST HER BALANCE AND FELL BACKWARDS. No loss consciousness. She was at her baseline prior to transport. No blood thinners. Patient is otherwise neurologically intact with the exception that she does not know the year and date. CT head and neck were negative. She does have minimal pain in her knee and x-rays were obtained and were unremarkable. X-rays of the pelvis unremarkable as well along with the chest x-ray. Son was updated bedside as well as usp. Patient was discharged follow-up as an outpatient. Discussed with Pt concerning signs and symptoms to watch out for. Pt was instructed to follow up with their PCP and discussed with the patient their option to return to the ED at anytime for persistent or worsening symptoms. Head Trauma GCS Score: 15 Medication Reconcilliation Current Medication List: was personally reviewed by me Blood Pressure Screening Patient's blood pressure: Elevated blood pressure Blood pressure disposition: Referred to PCP Impression Primary Impression: Fall Additional Impression: Left knee pain Scribe Attestation The scribe's documentation has been prepared under my direction and personally reviewed by me in its entirety. I confirm that the note above accurately reflects all work, treatment, procedures, and medical decision making performed by me. Departure Information Dispostion Home / Self-Care Referrals [facility] (PCP) Forms HOME CARE DOCUMENTATION FORM, IMPORTANT VISIT INFORMATION Patient Instructions Falls Risks Prevent, [facility], Patient When Falls Additional Instructions Please follow up with your primary care doctor with in the next 24 hours. Any worsening of your symptoms, please return to the ED immediately. This includes any fevers greater than 100.4, worsening pain, chest pain, shortness breath, persistent nausea, vomiting, unable to eat or drink, or any other concerning signs or symptoms from your standpoint. Please take Tylenol or Motrin as needed for pain Problem Qualifiers Primary Impression: Fall Encounter type: initial encounter Qualified Codes: W19.XXXA - Unspecified fall, initial encounter Additional Impression: Left knee pain Chronicity: acute Qualified Codes: M25.562 - Pain in left knee
== END 2017-06-27 16:46 | disposition home or self-care (01) ==
LOC: EDBD 13:18 → C.EDA 13:19
DX: M25.562 Pain in left knee (principal); W19.XXXA Unspecified fall, initial encounter; Y92.129 Unspecified place in nursing home as the place of occurrence of the external cause; F03.90 Unspecified dementia, unspecified severity, without behavioral disturbance, psychotic disturbance, mood disturbance, and anxiety; E11.9 Type 2 diabetes mellitus without complications; I10 Essential (primary) hypertension; Z85.118 Personal history of other malignant neoplasm of bronchus and lung; Z96.659 Presence of unspecified artificial knee joint; Z83.3 Family history of diabetes mellitus; Z82.49 Family history of ischemic heart disease and other diseases of the circulatory system; Z79.899 Other long term (current) drug therapy